=== PATIENT | female | born 1950 | race Caucasian/White ===

== ENCOUNTER 2020-01-13 13:09 | Outpatient (CLI) | payer MEDICARE, SELFPAY ==
--- NOTE | ~2020-01-13 | MMUS_ITS ---
EXAMINATION: MM diagnostic bernarda RT w sofia, US breast RT limited HISTORY: History of right breast cancer TECHNIQUE: Craniocaudal, mediolateral, and mediolateral oblique 3-D tomosynthesis images of the right breast were performed and synthetic 2-D images were generated. CAD analysis was submitted and interp reted. High resolution limited right breast ultrasound was performed. COMPARISON: 08/18/2019, 08/24/2018, 06/05/2019 BREAST PARENCHYMAL COMPOSITION: The breasts are almost entirely fatty. FINDINGS: MAMMOGRAPHIC FINDINGS: There are stable lumpectomy changes in the upper outer quadrant of the breast. There is subtle 5 mm a symmetry in the posterior third of the slightly inner breast 8 cm from the nipple. No suspicious calc ification is identified. ULTRASOUND: There is a subtle 5 mm x 3 mm oval, circumscribed, parallel, hypoechoic mass with no posterior featur es or internal vascularity at the 3:00 location 3 cm from the nipple. IMPRESSION: 1. Indeterminate right breast mass. 2. Ultrasound-guided biopsy is recommended. BI-RADS category 4, suspicious findings. Reviewed, dictated and finalized at location A. IMPRESSION: 1. Indeterminate right breast mass. 2. Ultrasound-guided biopsy is recommended. BI-RADS category 4, suspicious findings.
== END 2020-01-13 13:10 | disposition home or self-care (01) ==
PROVIDERS: PCP Family Medicine Adolescent Medicine; Visit Provider Internal Medicine Hematology & Oncology
DX: C50.411 Malignant neoplasm of upper-outer quadrant of right female breast (principal); R92.8 Other abnormal and inconclusive findings on diagnostic imaging of breast
CPT/HCPCS: 76642; 77061; 77065; G0279

== ENCOUNTER 2020-01-19 10:02 | Outpatient (CLI) | payer MEDICARE, SELFPAY ==
--- NOTE | ~2020-01-19 | US_ITS ---
US breast RT limited DATE: 01/19/2020 11:39 INDICATION: Subtle 5 mm x 3 mm oval circumscribed parallel mass was reported at 3:00 3 cm from the ni pple on 01/13/2020 ultrasound examination TECHNIQUE: Repeat ultrasound imaging and color flow imaging was performed targeted 3:00 3 cm from the nipple COMPARISON: 01/13/2020 right breast Limited ultrasound examination FINDINGS: There is a parallel circumscribed heterogeneous mixed hypoechoic and hyperechoic lesion at 3:00 3 cm from the nipple, without suspicious shadowing or internal vascularity. This measures approx imately 7.4 x 3.4 x 7.2 mm dimension. The patient has been on low-dose aspirin therapy is slight is yesterday. The sonographic features are most suggestive of a benign process, particularly the hyperechoic compon ent suggesting fatty tissue, as well as the circumscribed margins, parallel orientation, the lack of posterior shadowing. This most likely benign. I would recommend a 6 month follow-up ultrasound examin ation. IMPRESSION: BI-RADS Category 3: Probably benign RECOMMENDATION: 6 month follow-up targeted ultrasound at 3:00 Reviewed, dictated and finalized at Location A. Reviewed, dictated and finalized at location A.
== END 2020-01-19 10:03 | disposition home or self-care (01) ==
PROVIDERS: PCP Family Medicine Adolescent Medicine; Visit Provider Internal Medicine Hematology & Oncology
DX: C50.411 Malignant neoplasm of upper-outer quadrant of right female breast (principal); Z17.0 Estrogen receptor positive status [ER+]; R92.8 Other abnormal and inconclusive findings on diagnostic imaging of breast
CPT/HCPCS: 76642

== ENCOUNTER → 2020-08-16 09:18 | Outpatient (CLI) | payer MEDICARE, SELFPAY ==
--- NOTE | ~2020-08-16 | MMUS_ITS ---
EXAMINATION: MM diagnostic bernarda BI w sofia, US breast RT limited HISTORY: Six-month follow-up of subtle 5 x 3 mm circumscribed parallel mass at 3:00 3 cm from the nip ple recommended from 01/19/2020 right Limited breast ultrasound examination TECHNIQUE: ML, MLO and craniocaudal 3-D tomosynthesis images of both breasts were performed and synth etic 2-D images were generated. CAD analysis was submitted and interpreted. High resolution targeted right 3:00 Limited breast ultrasound examination was performed. COMPARISON: 01/19/2020 limited right breast ultrasound 01/13/2020 diagnostic right mammogram and limited right breast ultrasound examination 08/18/2019 bilateral diagnostic digital mammogram BREAST PARENCHYMAL COMPOSITION: The breasts are almost entirely fatty. FINDINGS: MAMMOGRAPHIC FINDINGS: Surgical clips are noted on the right. Occasional bilateral benign calcifications are noted including some new calcifications of fat necrosis on the left upper inner quadrant. No suspicious mass or interval architectural distortion or malignant calcification or skin thickening or new retraction of either breast is evident. ULTRASOUND: No suspicious mass or shadowing, cyst or other significant finding is noted at the right breast 3:00 position 3 cm from nipple. IMPRESSION: 1. No mammographic evidence of malignancy is detected 2. Routine annual mammographic screening follow-up is recommended. BI-RADS Category 2: Benign finding(s). Reviewed, dictated and finalized at location A. ICATION INTEGRATION ARCHITECT IMPRESSION: 1. No mammographic evidence of malignancy is detected 2. Routine annual mammographic screening follow-up is recommended. BI-RADS Category 2: Benign finding(s).
== END ==
PROVIDERS: PCP Family Medicine Adolescent Medicine; Visit Provider Nurse Practitioner Adult Health
DX: C50.411 Malignant neoplasm of upper-outer quadrant of right female breast (principal); Z17.0 Estrogen receptor positive status [ER+]
CPT/HCPCS: 76642; 77062; 77066; G0279

== ENCOUNTER 2020-10-02 15:45 | Outpatient (CLI) | payer MEDICARE, SELFPAY | END 2020-10-02 15:46 | disposition home or self-care (01) | LOC: ANHCOVIDVC 15:45 | PROVIDERS: PCP Family Medicine Adolescent Medicine | DX: Z23 Encounter for immunization (principal) | CPT/HCPCS: 0001A; 91300 ==

== ENCOUNTER 2020-10-23 15:44 | Outpatient (CLI) | payer MEDICARE, SELFPAY | END 2020-10-23 15:45 | disposition home or self-care (01) | LOC: ANHCOVIDVC 15:44 | PROVIDERS: PCP Family Medicine Adolescent Medicine | DX: Z23 Encounter for immunization (principal) | CPT/HCPCS: 0002A; 91300 ==

== ENCOUNTER → 2021-03-09 08:23 | Outpatient (CLI) | payer MEDICARE, SELFPAY ==
--- NOTE | ~2021-03-09 | XR_ITS ---
EXAMINATION:XR cervical spine 4-5V DATE: 03/09/2021 09:00 INDICATION: Neck pain TECHNIQUE: AP, lateral, lateral swimmers and odontoid views of the cervical spine are provided. COMPARISON: None FINDINGS: There are 2 mm of retrolisthesis of C4 on C5 and C5 on C6. The odontoid is intact. No fract ure is identified. The vertebral body heights are maintained. There is severe loss of intervertebral disc space height at C5-6 and C6-7 and moderate loss of disc space height at C4-5. Small degenerative osteophytes project from the anterior endplates of multiple vertebral bodies. There is severe multil evel facet and uncovertebral joint osteoarthritis. Prevertebral soft tissues are normal. IMPRESSION: 1. Severe cervical spondylosis without acute findings. Reviewed, dictated and finalized at location B.
--- NOTE | ~2021-03-09 | XR_ITS ---
EXAMINATION: XR lumbar spine 2-3V DATE: 03/09/2021 09:00 INDICATION: Low back pain TECHNIQUE: Anteroposterior and lateral views of the lumbar spine, and cone-down lateral view of the l umbosacral junction were obtained. COMPARISON: None. FINDINGS: There are 4 mm of retrolisthesis of L2 on L3, 5 mm of anterolisthesis of L3 on L4, and 5 mm of retrolisthesis of L5 on S1. There is severe loss of intervertebral disc space height at L4-5 and moderate loss of disc space height throughout the remainder of the lumbar spine. No fracture is ident ified. The vertebral body heights are maintained. Degenerative osteophytes project from the anterior endplates of multiple vertebral bodies. There is severe facet osteoarthritis of the lower lumbar spin e. IMPRESSION: 1. Severe lumbar spondylosis without acute findings Reviewed, dictated and finalized at location B.
== END ==
PROVIDERS: PCP Family Medicine Adolescent Medicine; Visit Provider Physician Assistant
DX: M47.896 Other spondylosis, lumbar region (principal); M47.892 Other spondylosis, cervical region
CPT/HCPCS: 72050; 72100

== ENCOUNTER 2021-03-12 10:52 | Outpatient (RCR) | payer MEDICARE, SELFPAY ==
--- NOTE | 2021-03-12 12:50 | PC.NURSE ---
This RN called blood back to ask if blood is ready on this patient. Blood bank stated they needed another lavender tube drawn for verification. This RN sent tube with patient label as directed by Lu in lab.
[2021-03-12 13:30] VITALS: BP 140/54; PULSE 85; RESP 15; TEMP 36.4; O2SAT 100
--- NOTE | 2021-03-12 13:39 | PC.NURSE ---
This RN ordered food for patient as requested.
[2021-03-12 13:45] VITALS: BP 130/54; PULSE 80; RESP 18; TEMP 36.1; O2SAT 100
[2021-03-12 14:45] VITALS: BP 127/58; PULSE 72; RESP 16; TEMP 36; O2SAT 100
[2021-03-12 15:45] VITALS: BP 143/68; PULSE 77; RESP 15; TEMP 36.1; O2SAT 100
[2021-03-12 16:40] VITALS: BP 146/65; PULSE 78; RESP 16; TEMP 36.1; O2SAT 100
--- NOTE | 2021-03-12 16:54 | PC.NURSE ---
1640 1 U PRBC done being infused, D/C paperwork reviewed with patient and pts daughter, both verbalized understanding. IV was d/c'd, cath intact, pressure applied. Pt was transported via wheelchair to [facility] where her daughter drove her home in a private vehicle.
== END 2021-06-10 23:59 | disposition home or self-care (01) ==
LOC: ANHCPCTRAN 10:52
PROVIDERS: PCP Family Medicine Adolescent Medicine; Visit Provider Physician Assistant
DX: D64.9 Anemia, unspecified (principal)
CPT/HCPCS: 36415; 36430; 86850; 86900; 86901; 86920; J7050; P9016

== ENCOUNTER 2021-05-09 10:35 | Outpatient (CLI) | payer MEDICARE, SELFPAY ==
[2021-05-09 11:19] LABS: Basophils Percent Auto 0.6 % (0.2-1.2); Eosinophils Absolute Auto 0.1 K/mm3 (0-0.3); Eosinophils Percent Auto 1.9 % (0-4.4); Hematocrit 40.6 % (37.0-47.0); Hemoglobin 12.4 g/dL (12.0-15.0); Immature Granulocyte Absolute 0.01 K/mm3 (0.00-0.031); Immature Granulocyte Percent A 0.2 % (0-0.5); Lymphocytes Absolute Auto 1.16 K/mm3 (0.9-3.2); Lymphocytes Percent Auto 22.2 % (18.3-44.2); Mean Corpuscular HGB Conc 30.5 g/dl (32-36); Mean Corpuscular Hemoglobin 29.2 pg (26-34); Mean Corpuscular Volume 95.8 fl (80-100); Mean Platelet Volume 9.7 fl (7.4-10.4); Monocytes Absolute Auto 0.4 K/mm3 (0.1-0.6); Monocytes Percent Auto 8.4 % (2.6-8.5); Neutrophils Absolute Auto 3.5 K/mm3 (1.3-6.7); Neutrophils Percent Auto 66.7 % (45.5-73.1); Platelet Count Result 223 k/mm3 (150-375); Red Blood Count 4.24 M/mm3 (4.2-5.4); Red Cell Distribution Width 15.8 % (11.5-14.5); White Blood Count 5.2 K/mm3 (4.5-10.0)
[2021-05-09 14:44] LABS: Alanine Aminotransferase 12 U/L (4-35); Albumin Level 3.4 g/dL (3.5-5.1); Alkaline Phosphatase 55 U/L (38-126); Anion Gap 4 mmol/L (8-16); Aspartate Amino Transferase 34 U/L (14-36); Bilirubin,Total 0.3 mg/dL (0.2-1.3); Blood Urea Nitrogen 17 mg/dL (7-17); Carbon Dioxide 30 mmol/L (22-30); Chloride 107 mmol/L (98-107); Estimated Glomerular Filt Rate 54; Glucose 125 mg/dL (65-110); Sodium 141 mmol/L (137-145)
[2021-05-09 14:53] LABS: Iron 65 ug/dL (37-170)
[2021-05-09 15:03] LABS: Percent Iron Saturation 19 % (20-50)
== END 2021-05-09 10:36 | disposition home or self-care (01) ==
LOC: ANHLAB 10:38
PROVIDERS: PCP Family Medicine Adolescent Medicine; Visit Provider Internal Medicine Hematology & Oncology
DX: C50.411 Malignant neoplasm of upper-outer quadrant of right female breast (principal); Z17.0 Estrogen receptor positive status [ER+]
CPT/HCPCS: 36415; 80053; 82607; 82728; 83540; 83550; 85025

== ENCOUNTER 2021-05-11 00:43 | Day surgery (SDC) | payer MEDICARE, SELFPAY ==
[2021-04-25 12:58] VITALS: BMI 37.9
[2021-05-11 09:08] VITALS: BP 148/72; PULSE 84; RESP 20; TEMP 36.4; O2SAT 99; BMI 37.2
[2021-05-11] MEDS: LACTATED RINGERS 1,000 ML 150 ML IV CONT (09:23)
--- NOTE | 2021-05-11 09:42 | P.PNAN_ITS ---
Anes - Initial Pre Proc Eval Procedure: Operation Date: 05/11/21 10:15 Proposed Procedures p Esophagogastroduodenoscopy & Colonoscopy - Killian Mackey MD Date/Time: 05/11/21 09:42 Surgeon: Killian Mackey MD Pre Op Diagnosis: HIRO Patient Data Age: 71 Gender: F Height: 1.78 m Weight: 117.7 kg Last Vital Signs Temp 36.4 C 05/11/21 09:08 Pulse 84 05/11/21 09:08 Resp 20 05/11/21 09:08 BP 148/72 H 05/11/21 09:08 Pulse Ox 99 05/11/21 09:08 Allergies Allergy/AdvReac Type Severity Reaction Status Date / Time No Known Allergies Allergy Verified 05/11/21 09:05 Home Medications Medication Instructions Recorded Confirmed Type anastrozole 1 mg tablet 1 mg PO DAILY 04/13/21 04/25/21 History budesonide-formoterol HFA 80 2 puff INHALATION Q12H 04/13/21 04/25/21 History mcg-4.5 mcg/actuation aerosol inhaler bupropion HCl 300 mg 24 hr tablet, 300 mg PO QAM 04/13/21 04/25/21 History extended release ferrous sulfate 325 mg (65 mg 325 mg PO BID 04/13/21 04/25/21 History iron) tablet ipratropium bromide 21 mcg (0.03 2 spray INTRANASAL BID 04/13/21 04/25/21 History %) nasal spray lorazepam 0.5 mg tablet 0.5 mg PO DAILY PRN 04/13/21 04/25/21 History meclizine 25 mg tablet 25 mg PO TID 04/13/21 04/25/21 History multivit with 1 tablet PO DAILY 04/13/21 04/25/21 History uusxnees-fhwz-LR-lutein 8 mg iron-400 mcg-300 mcg tablet pantoprazole 40 mg tablet,delayed 40 mg PO QAM 04/13/21 04/25/21 History release Patient hx anesthesia problems: none Family hx anesthesia problems: none Results Review: All pre-operative results and documents have been reviewed as part of the pre-operative evaluation. [facility] Past Medical History Medical History Breast cancer CKD (chronic kidney disease) stage 3, GFR 30-59 ml/min HTN (hypertension) Morbid obesity Social History Social History Smoking status: Former smoker Alcohol intake: never Substance use: never Substance use type: does not use Living arrangements: with family Spiritual care concerns: No Anes - Eval Final PreProcedure Day of Procedure 05/11/21 09:42 Patient weight: obese Heart: regular rate and rhythm Lungs: clear to auscultation Airway: Mallampati scale class III Neurological: alert and oriented Last oral intake: >/= 8 hours ASA classification: III Emergent: no Anesthetic plan: proceed Anesthesia type and monitoring: general GIVS and standard monitoring Results Review: All pre-operative results and documents have been reviewed as part of the pre-operative evaluation. Informed Consent: The patient's anesthetic plan and its attendant risks and benefits were discussed with the patient/family/POA. Questions were solicited and answers provided to the satisfaction of the patient/family/POA.
--- NOTE | 2021-05-11 10:00 | WPDGICN ---
Assessment and Plan Assessment and plan (1) Anemia: Code(s): D64.9 - Anemia, unspecified Status: Acute Assessment and Plan: Patient with anemia presents for both colonoscopy an EGD. Patient has had a decline in hemoglobin when checked in February from prior exams. Plan is to evaluate both colonoscopy an EGD for the possibility of GI blood loss. Further recommendations will be given after endoscopy. It hemoglobin has improved after transfusion has remained stable. patient currently on empiric pantoprazole. (2) History of melena: Code(s): Z87.19 - Personal history of other diseases of the digestive system Status: Acute Assessment and Plan: Patient gives a history of several dark stools. This potentially could represent melena and GI bleeding. This has not persisted there has been only 2 occasions of this. (3) Breast cancer: Code(s): C50.919 - Malignant neoplasm of unspecified site of unspecified female breast Status: Acute (4) Morbid obesity: Code(s): E66.01 - Morbid (severe) obesity due to excess calories Status: Acute GI Consult Note Consult date/time: 05/11/21 10:00 HPI: Michelle Araiza is a 71 year old female Presents for evaluation of anemia. Patient has a history of breast carcinoma for which she follows Dr. Melissa de luna. She also has a peripheral neuropathy. She began to feel somewhat dizzy and went to her primary care service in January. Hemoglobin at that time revealed her to be modestly anemic and a significant change from recent blood count. Patient reports that she had to independent black stools prior to that at that has not recurred. She denies any abdominal pain. She subsequently was placed on meclizine for dizziness. Pantoprazole for possible ulcer disease and was transfused blood. Patient is now referred for for evaluation of anemia and possible GI blood loss. Possible melena by history. Patient's family history is significant a grandfather had colon cancer her mother had leukemia. Patient is being followed by Dr. Melissa de luna for breast cancer she also has obesity and neuropathy. She denies any recent evidence for blood loss. Review of Systems Review of Systems: All systems reviewed & are unremarkable except as noted in HPI and below PMFSH Past Medical History Medical History Breast cancer CKD (chronic kidney disease) stage 3, GFR 30-59 ml/min HTN (hypertension) Morbid obesity Social History Social History Smoking status: Former smoker Alcohol intake: never Substance use: never Substance use type: does not use Living arrangements: with family Spiritual care concerns: No Meds Home Medications and Allergies Home Medications Medication Instructions Recorded Confirmed Type anastrozole 1 mg tablet 1 mg PO DAILY 04/13/21 04/25/21 History budesonide-formoterol HFA 80 2 puff INHALATION Q12H 04/13/21 04/25/21 History mcg-4.5 mcg/actuation aerosol inhaler bupropion HCl 300 mg 24 hr tablet, 300 mg PO QAM 04/13/21 04/25/21 History extended release ferrous sulfate 325 mg (65 mg 325 mg PO BID 04/13/21 04/25/21 History iron) tablet ipratropium bromide 21 mcg (0.03 2 spray INTRANASAL BID 04/13/21 04/25/21 History %) nasal spray lorazepam 0.5 mg tablet 0.5 mg PO DAILY PRN 04/13/21 04/25/21 History meclizine 25 mg tablet 25 mg PO TID 04/13/21 04/25/21 History multivit with 1 tablet PO DAILY 04/13/21 04/25/21 History gbljyoxr-pgup-FE-lutein 8 mg iron-400 mcg-300 mcg tablet pantoprazole 40 mg tablet,delayed 40 mg PO QAM 04/13/21 04/25/21 History release Allergies Allergy/AdvReac Type Severity Reaction Status Date / Time No Known Allergies Allergy Verified 05/11/21 09:05 Vital Signs Vital Signs - 24 hr 05/11/21 09:08 Temperature 97.6 F Pulse Rate 84 Respiratory Rate 20 Blood Pressure 14
[2021-05-11 10:55] VITALS: BP 131/64; PULSE 73; RESP 15; O2SAT 98
[2021-05-11 11:05] VITALS: BP 146/105; PULSE 68; RESP 18; O2SAT 100
[2021-05-11 11:15] VITALS: BP 147/84; PULSE 66; RESP 16; O2SAT 100
== END 2021-05-11 11:37 | disposition home or self-care (01) ==
PROVIDERS: PCP Family Medicine Adolescent Medicine; Visit Provider Internal Medicine Gastroenterology
PROC: 0DJ08ZZ Inspection of Upper Intestinal Tract, Via Natural or Artificial Opening Endoscopic (ICD-10-PCS; CPT 43235; principal; 2021-05-11 10:15)
DX: D64.9 Anemia, unspecified (principal); K92.1 Melena; D12.5 Benign neoplasm of sigmoid colon; K64.8 Other hemorrhoids; K57.30 Diverticulosis of large intestine without perforation or abscess without bleeding; K31.7 Polyp of stomach and duodenum; Z87.19 Personal history of other diseases of the digestive system; I12.9 Hypertensive chronic kidney disease with stage 1 through stage 4 chronic kidney disease, or unspecified chronic kidney disease; N18.30 Chronic kidney disease, stage 3 unspecified; G62.9 Polyneuropathy, unspecified; Z85.3 Personal history of malignant neoplasm of breast; E66.01 Morbid (severe) obesity due to excess calories; Z68.37 Body mass index [BMI] 37.0-37.9, adult; Z87.891 Personal history of nicotine dependence; Z79.811 Long term (current) use of aromatase inhibitors; Z79.51 Long term (current) use of inhaled steroids
CPT/HCPCS: 45385; 43239; 88305; J2001; J2704; J7120

== ENCOUNTER 2021-06-18 08:13 | Outpatient (CLI) | payer MEDICARE, SELFPAY ==
--- NOTE | ~2021-06-18 | XR_ITS ---
EXAMINATION: XR chest 2V DATE: 06/18/2021 08:40 INDICATION: Neoplasm of unspecified behavior of digestive system. TECHNIQUE: Frontal and lateral views of the chest were obtained. COMPARISON: None. FINDINGS: The chest demonstrates clear lungs without pneumonia, pleural effusion, or pneumothorax. Th e heart size is normal. IMPRESSION: 1. No acute cardiopulmonary disease. Reviewed, dictated and finalized at location B. TY COUNSELOR
--- NOTE | 2021-06-18 08:30 | ECG_ITS ---
Measurements Intervals [place] Rate: 67 P: 66 NJ: 174 QRS: -6 QRSD: 97 T: 34 QT: 390 QTc: 412 Interpretive Statements SINUS RHYTHM VOLTAGE CRITERIA FOR LVH BORDERLINE R WAVE PROGRESSION, ANTERIOR LEADS MINIMAL Q WAVES- HIGH LATERAL LEADS BASELINE ARTIFACT- II, III, AVF BORDERLINE ECG Electronically Signed On 06-18-2021 8:32:05 E [employer]ER[employer] PROJECT MANAGER by Samuel Beaver D.O.
[2021-06-18 09:03] LABS: Basophils Absolute Auto 0.1 K/mm3 (0.0-0.1); Basophils Percent Auto 1.2 % (0.2-1.2); Eosinophils Absolute Auto 0.1 K/mm3 (0-0.3); Eosinophils Percent Auto 1.9 % (0-4.4); Hemoglobin 13.9 g/dL (12.0-15.0); Immature Granulocyte Absolute 0.02 K/mm3 (0.00-0.031); Immature Granulocyte Percent A 0.5 % (0-0.5); Lymphocytes Absolute Auto 1.06 K/mm3 (0.9-3.2); Lymphocytes Percent Auto 24.8 % (18.3-44.2); Mean Corpuscular HGB Conc 32.3 g/dl (32-36); Mean Corpuscular Hemoglobin 31.6 pg (26-34); Mean Corpuscular Volume 97.7 fl (80-100); Mean Platelet Volume 9.9 fl (7.4-10.4); Monocytes Absolute Auto 0.4 K/mm3 (0.1-0.6); Monocytes Percent Auto 8.2 % (2.6-8.5); Neutrophils Absolute Auto 2.7 K/mm3 (1.3-6.7); Neutrophils Percent Auto 63.4 % (45.5-73.1); Platelet Count Result 197 k/mm3 (150-375); Red Cell Distribution Width 14.3 % (11.5-14.5); White Blood Count 4.3 K/mm3 (4.5-10.0)
[2021-06-18 09:21] LABS: Anion Gap 1 mmol/L (8-16); Blood Urea Nitrogen 18 mg/dL (7-17); Carbon Dioxide 33 mmol/L (22-30); Chloride 107 mmol/L (98-107); Estimated Glomerular Filt Rate 54; Glucose 102 mg/dL (65-110); Potassium 3.8 mmol/L (3.4-5.0); Sodium 141 mmol/L (137-145)
== END 2021-06-18 08:14 | disposition home or self-care (01) ==
LOC: ANHSURGERY 08:15
PROVIDERS: PCP Family Medicine Adolescent Medicine; Visit Provider Surgery
DX: D49.0 Neoplasm of unspecified behavior of digestive system (principal)
CPT/HCPCS: 36415; 71046; 80048; 85025; 86850; 86900; 86901; 93005

== ENCOUNTER 2021-06-29 16:37 | Inpatient (IN) | payer MEDICARE, SELFPAY ==
[2021-06-14 10:29] VITALS: BMI 37.3
--- NOTE | 2021-06-14 10:47 | PC.NURSE ---
Report to the Outpatient Waiting Room, entrance under the green pavilion located off [facility], at time _1100 _on date _06/28/21. OR Time: _1 PM__. - You and your visitor will be asked a series of questions to screen for COVID 19 for your protection. - A mask is required within the hospital. - Only one visitor is allowed at this time. Patient visitors will be guided where to wait when not with patient. Preoperative COVID Testing Requirements: No COVID Test needed if: (proof is required; if not received patient will have Rapid Test prior to entry) - Patient has received COVID Vaccine at least 14 days prior to procedure date or - Patient has positive COVID test result within last 90 days of surgery date. COVID Test needed if above criteria is not met If not COVID vaccinated a COVID test must be conducted within 72 hours of surgery and patient is asked to isolate self from time of testing until procedure. You will go to the [email or web address] Testing Site for your COVID testing. The [email or web address] Testing site is located at the corner of [address] [facility]. You will only be called if COVID results are positive and your surgeon may reschedule your elective surgery date. Patients may have clear liquids (water, carbonated beverages, clear teas, apple juice) until 3 hours prior to surgery (1000 AM) with a maximum of 20 ounces. - No food from midnight until time of surgery - Infants may have breast milk until 4 hours before surgery, formula 6 hours prior to surgery. - Children will be allowed to drink immediately following surgery. If applicable, please bring a bottle or sippy cup to assist with drinking. Juice, water, soda, and popsicles are readily available. For infants on formula, please bring formula the day of surgery. Pacifiers are allowed. Take the following medications with a SIP of water the morning of surgery: _BUPROPION, INHALER, & LORAZEPAM IF NEEDED____ Medications to discontinue per physician _ALL VITAMINS AND SUPPLEMENTS Date to take last dose__06/24/21____ Please no make-up, nail bengali, hairspray, perfume, deodorant, or body powder the day of surgery. No jewelry (including any body piercings) or valuables the day of surgery, leave them at home. Please take a shower or bath the night before, or the morning of, surgery with an antibacterial soap. Wear comfortable, loose fitting clothing. Children are encouraged to wear pajamas. - Jewelry must be removed prior to entering the operating room. Rings and piercings that are not removed may be cut off. - The hospital will not accept responsibility for valuables. - Please leave all valuables, including medications, at home the day of surgery. If you are going home after surgery, a licensed [employer] company driver must drive you home. - NO public transportation without another adult. - We recommend that an adult stay with you for 24 hours following discharge. - We also recommend that you do not drive, make important decision, drink alcoholic beverages, or take any drugs that were not prescribed by your health care provider for at least 24 hours after your discharge time. For Pediatric surgeries, we recommend two adults accompany the child home (only one inside the building at this time). Follow any additional instructions given to you from your surgeon. DIET, BOWEL PREP, HIBICLENS SHOWER DAY BEFORE AND AM OF SURGERY Telephone instructions given to ____PT and asked if any additional questions and then verbalized understanding. Patient advised to call surgeon office or pre surgery nurse liaison [phone] if any additional questions.
[2021-06-28] VITALS (14 sets, daily range): BP systolic 125–158; BP diastolic 64–95; PULSE 61–88; RESP 12–20; TEMP 35.9–36.5; O2SAT 96–100
--- NOTE | 2021-06-28 08:23 | PM.IMHP ---
H&P: HPI History of Present Illness Date/Time: 06/28/21 08:23 Chief Complaint: Submucosal gastric mass Narrative: patient is a 71-year-old woman with a history breast cancer, obesity, and chronic kidney disease stage 3. She was noted to have anemia and easy fatigability. On May 11 she underwent a colonoscopy an EGD to evaluate this. Colonoscopy was negative other than a benign sigmoid colon polyp and diverticulosis. 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 This was ulcerated and appeared to be the source of chronic blood loss. Biopsies were done but showed only some inflammation suggestive of the overlying mucosal changes. She was seen in the office and is now taken to surgery for laparoscopic resection of the gastric submucosal mass. Concern exists that this could be a gastrointestinal stromal tumor versus other soft tissue benign or malignant neoplasm. Review of Systems Review of Systems: All systems reviewed & are unremarkable except as noted in HPI and below Constitutional: Constitutional: Denies headache(s) ENT: Denies headache(s) Cardiovascular: Cardiovascular: Denies chest pain and Denies dyspnea Respiratory: Respiratory: Denies cough and Denies dyspnea Gastrointestinal: Gastrointestinal: Reports melena ( Melena), Denies bloating, Reports change in stool character, Denies constipation, Reports heartburn and Denies nausea Genitourinary: Genitourinary: Reports urinary incontinence Musculoskeletal: Musculoskeletal: Reports back pain, Reports arthralgias and Reports neck pain Neurologic: Denies confusion, Reports frequent falls and Denies headache(s) Psychiatric: Psychiatric: Denies confusion Allergic/Immunologic: Allergic/Immunologic: Reports seasonal rhinorrhea PMF Past Medical History Medical History Breast cancer CKD (chronic kidney disease) stage 3, GFR 30-59 ml/min HTN (hypertension) Morbid obesity Family History Family History Father Heart disease Mother Diabetes mellitus Social History Social History Smoking status: Never smoker Second hand tobacco smoke exposure: No Alcohol intake: never Substance use: never Substance use type: does not use Living arrangements: alone Spiritual care concerns: No Meds Home Medications and Allergies Home Medications Medication Instructions Recorded Confirmed Type anastrozole 1 mg tablet 1 mg PO DAILY 04/13/21 06/14/21 History budesonide-formoterol HFA 80 2 puff INHALATION Q12H 04/13/21 06/14/21 History mcg-4.5 mcg/actuation aerosol inhaler bupropion HCl 300 mg 24 hr tablet, 300 mg PO QAM 04/13/21 06/14/21 History extended release ferrous sulfate 325 mg (65 mg 325 mg PO DAILY 04/13/21 06/14/21 History iron) tablet ipratropium bromide 21 mcg (0.03 2 spray INTRANASAL BID PRN 04/13/21 06/14/21 History %) nasal spray lorazepam 0.5 mg tablet 0.5 mg PO DAILY PRN 04/13/21 06/14/21 History multivit with 1 tablet PO DAILY 04/13/21 06/14/21 History hcpbozma-dhkf-EU-lutein 8 mg iron-400 mcg-300 mcg tablet pantoprazole 40 mg tablet,delayed 40 mg PO QAM 04/13/21 06/14/21 History release Mra 128 1 drp DAILY 06/14/21 06/14/21 History calcium carbonate-vitamin D3 1 tablet PO DAILY 06/14/21 06/14/21 History [Calcium 600 with Vitamin D3] vitamin B complex 1 cap DAILY 06/14/21 06/14/21 History Allergies Allergy/AdvReac Type Severity Reaction Status Date / Time No Known Allergies Allergy Verified 06/14/21 10:19 Exam Const: General: cooperative, comfortable, no acute distress, alert and awake; No confusion Orientation/consciousness: No confusion HENMT: Head: normocephalic, atraumatic, no contusions and no scalp lesions Ears: external ears
[2021-06-28] MEDS: ACETAMINOPHEN 500 MG TABLET 1000 MG PO (09:39)
[2021-06-28] MEDS: LACTATED RINGERS 1,000 ML 30 ML IV CONT ×2 (09:45→12:57)
--- NOTE | 2021-06-28 09:51 | WPDANESEPPF ---
Anes - Initial Pre Proc Eval Procedure: Operation Date: 06/28/21 10:30 Proposed Procedures p Laparoscopic Resection of Gastric Mass - Lionel Pichardo MD Date/Time: 06/28/21 09:51 Surgeon: Lionel Pichardo MD Pre Op Diagnosis: submucosal gastric mass Patient Data Age: 71 Gender: F Height: 1.78 m Weight: 118.18 kg Allergies Allergy/AdvReac Type Severity Reaction Status Date / Time No Known Allergies Allergy Verified 06/28/21 09:30 Home Medications Medication Instructions Recorded Confirmed Type anastrozole 1 mg tablet 1 mg PO DAILY 04/13/21 06/28/21 History budesonide-formoterol HFA 80 2 puff INHALATION Q12H 04/13/21 06/28/21 History mcg-4.5 mcg/actuation aerosol inhaler bupropion HCl 300 mg 24 hr tablet, 300 mg PO QAM 04/13/21 06/28/21 History extended release ferrous sulfate 325 mg (65 mg 325 mg PO DAILY 04/13/21 06/28/21 History iron) tablet ipratropium bromide 21 mcg (0.03 2 spray INTRANASAL BID PRN 04/13/21 06/14/21 History %) nasal spray lorazepam 0.5 mg tablet 0.5 mg PO DAILY PRN 04/13/21 06/14/21 History multivit with 1 tablet PO DAILY 04/13/21 06/28/21 History pvzbvojy-klid-EI-lutein 8 mg iron-400 mcg-300 mcg tablet pantoprazole 40 mg tablet,delayed 40 mg PO QAM 04/13/21 06/28/21 History release Mra 128 1 drp DAILY 06/14/21 06/28/21 History calcium carbonate-vitamin D3 1 tablet PO DAILY 06/14/21 06/28/21 History [Calcium 600 with Vitamin D3] vitamin B complex 1 cap DAILY 06/14/21 06/28/21 History Patient hx anesthesia problems: none Family hx anesthesia problems: none Results Review: All pre-operative results and documents have been reviewed as part of the pre-operative evaluation. [facility] Past Medical History Medical History Breast cancer CKD (chronic kidney disease) stage 3, GFR 30-59 ml/min HTN (hypertension) Morbid obesity Family History Family History Father Heart disease Mother Diabetes mellitus Social History Social History Smoking status: Never smoker Second hand tobacco smoke exposure: No Alcohol intake: never Substance use: never Substance use type: does not use Living arrangements: alone Spiritual care concerns: No Anes - Eval Final PreProcedure Day of Procedure 06/28/21 09:51 Patient weight: obese Heart: regular rate and rhythm Lungs: clear to auscultation Airway: Mallampati scale class II Neurological: alert and oriented Last oral intake: >/= 8 hours ASA classification: III Emergent: no Anesthetic plan: proceed Anesthesia type and monitoring: general ETT and standard monitoring Results Review: All pre-operative results and documents have been reviewed as part of the pre-operative evaluation. Informed Consent: The patient's anesthetic plan and its attendant risks and benefits were discussed with the patient/family/POA. Questions were solicited and answers provided to the satisfaction of the patient/family/POA.
[2021-06-28] MEDS: ALVIMOPAN 12 MG CAPSULE PO (10:04)
--- NOTE | 2021-06-28 10:06 | WPDHPUPDATE1 ---
History and Physical Update Update Date/Time: 06/28/21 10:06 History and Physical has been reviewed, including an updated exam of the patient. There are NO changes in the patient's condition. Risks, benefits, and alternatives have been discussed and questions answered. Patient agrees to proceed with procedure.
[2021-06-28] MEDS: ceFAZolin 2 GM/D5W 50 ML 2 GM/50 ML BAG IVPB (10:17)
[2021-06-28] MEDS: metroNIDAZOLE 500 MG/ISO 100ML 500 MG/100 ML BAG 100 MG IVPB (10:26)
[2021-06-28] MEDS: BUPIVACAINE HCL 0.5% PF 30 ML VIAL INFILTRATE (10:39)
--- NOTE | 2021-06-28 13:08 | W.PM.PROC2 ---
Procedure Note - Detailed Date of Procedure 06/28/21 Pre-op Diagnosis submucosal gastric mass Post-op Diagnosis same Procedure Performed Laparoscopic resection of 10 x 8 cm gastric submucosal mass Surgeon Lionel Pichardo MD Manager [employer] Shruthi MEJIA Anesthesia general and local (0.5% Marcaine) Indications Patient experienced symptomatic anemia due to GI blood loss. EGD done 05/11/2021 showed a gastric submucosal mass in the upper portion of the stomach. She is taken to surgery now for laparoscopic resection. Findings Laparoscopic findings were consistent with a large gastric submucosal mass in the upper portion of the stomach. It had dimpled the anterior aspect of the upper stomach in the area of the cardia. It appeared to be larger than was able to be noted at EGD. I estimated the size at 10 x 8 cm. It was able to be resected with clear margin laparoscopically. Description of Procedure Patient was taken to surgery and induced into general anesthesia. The abdomen was prepped and draped. Local anesthetic using 0.5% Marcaine was used prior to placement of each of the trocars. The initial trocar was cephalad from the umbilicus but in the midline. The varies needle was used here initially to gain good insufflation. Saline drop test was used to ensure intraperitoneal location before we insufflated with CO2. With the abdomen insufflated adequately, and applied Medical optical 10 11 port was then placed into the abdomen. From there the camera was placed and the remaining ports were placed under direct visualization. A 10 11 port was placed in the left lateral subcostal position. Two ports were placed on either side of the midline just cephalad to the initial port. Finally a 12 mm port was placed in the right subcostal position. A liver retractor was used to retract the lateral segment of the left lobe of the liver. We used the LigaSure for most of the sharp dissection. The stomach was inspected and we looked for the area of the mass. It was not immediately evident but as we continued our dissection we saw a dimpled area that was hypervascular that was clearly some erosion of the mass through the stomach wall. We proceeded by dividing the short gastric vessels from the greater curvature of the stomach. This was done with the LigaSure and we proceeded from about the mid stomach up to the cardia. This freed the stomach significantly so that we could proceed with the resection. There was a hiatal hernia noted. It was not particularly large. We dissected most of the posterior wall of the stomach as well as the cardia. At this point we were able to identify the mass. It was more on the anterolateral aspect of the cardia of the stomach. We started using a ABBY 45 stapler. The initial stapled divisions of the stomach went well but as we got to the midportion of the mass, the stapler would not open wide enough to make progress. We then switched to the echelon 60 mm stapler. This worked well. I was able to follow around the margin of the mass in the cardia and fundus of the stomach staying away from the esophagogastric junction. Serial firings of the 60 mm stapler were carried out and the portion of stomach containing the mass was eventually completely freed. Some of the cardia the stomach was left behind but appeared to be in good condition. Some intraoperative photographs were taken. Since the mass was fairly large, we used a 15 mm port and the 15 mm Endo-Catch bag to retrieve the mass. The left upper port was converted to a 15 mm and then the Endo-Catch bag was passed into the abdomen. The mass was placed in the Endo-Catch bag. To remove the mass, we still had to enlarge the opening to extricated. It was eventually extricated in the pouch. We then proceeded with closing the incision. 0 Vicryl sutures were used for the posterior peritoneum and rectus fascia. This was running suture. Muscular bleeders were controlled with the LigaSure. The
--- NOTE | 2021-06-28 13:52 | SUR.PHASEI ---
PT AWAKENS EASILY. DENIES PAIN. STATES LOW ABDOMEN SORE, BUT IT DOESNT HURT PT STATES HER EYES ARE MOVING UP AND DOWN . DR CHAN IN PACU. PT DENIES DIZZINESS. ALERT AND ORIENTED, SPEECH CLEAR. FOLLOWS COMMANDS. CALLED TO BEDSIDE. DR CAHN SPEAKING WITH PT.
--- NOTE | 2021-06-28 13:58 | SUR.PHASEI ---
DR CHAN AT BEDSIDE AGAIN. SPEAKING TO PT, STATES SHE IS HAVING POST OPERATIVE NYSTAGMUS, AND IT SHOULD RESOLVE IN APPROX 24 HOURS.
--- NOTE | 2021-06-28 14:27 | SUR.PHASEI ---
pt is now boarding in out pt with jax rodriguez. room not available at this time.
--- NOTE | 2021-06-28 17:35 | ADMGEN ---
This patient, Micehlle Araiza, was admitted to Medical Room 346-01. Patient/family oriented to hospital policies and general routines including ID bracelet, bed and alarms, visiting hours, pain management, procedures, bathroom and other care routines, personal items, smoking policy, room service/diet, and visiting hours. Information on how to activate the Rapid Response Team has been discussed. Patient/Family are encouraged to report perceived risks to care and to ask questions if they do not understand what they are told or what they should do.
[2021-06-28] MEDS: FLUTICASONE/SALMETEROL 45-21 MCG INHALER 1 PUFF 2 PUFF INHALATION (20:48)
[2021-06-29] MEDS: HYDROcodone/acetaminophen (*CRX) 10-325 MG TABLET 1 TAB PO ×3 (04:00→16:01)
[2021-06-29 04:01] VITALS: BP 142/57; PULSE 76; RESP 16; TEMP 37.2; O2SAT 98
[2021-06-29 06:00] VITALS: BP 151/73; PULSE 74; RESP 18; TEMP 35.8; O2SAT 99
[2021-06-29 06:13] LABS: Hematocrit 39.3 % (37.0-47.0); Hemoglobin 12.9 g/dL (12.0-15.0); Mean Corpuscular HGB Conc 32.8 g/dl (32-36); Mean Corpuscular Volume 94.5 fl (80-100); Mean Platelet Volume 9.5 fl (7.4-10.4); Platelet Count Result 201 k/mm3 (150-375); Red Blood Count 4.16 M/mm3 (4.2-5.4); Red Cell Distribution Width 13.6 % (11.5-14.5); White Blood Count 8.8 K/mm3 (4.5-10.0)
[2021-06-29 06:24] LABS: Anion Gap 1 mmol/L (8-16); Blood Urea Nitrogen 17 mg/dL (7-17); Calcium 8.7 mg/dL (8.4-10.2); Carbon Dioxide 30 mmol/L (22-30); Chloride 103 mmol/L (98-107); Estimated CRCL calculation 62 ml/min; Estimated Glomerular Filt Rate 54; Glucose 122 mg/dL (65-110); Sodium 134 mmol/L (137-145)
[2021-06-29] MEDS: MORPHINE SULFATE (*CRX) 2 MG/ML INJ IV PUSH (06:42)
[2021-06-29] MEDS: PANTOPRAZOLE 40 MG TABLET PO (08:19)
[2021-06-29] MEDS: ANASTROZOLE (*CHEMO) 1 MG TABLET PO (08:20)
[2021-06-29] MEDS: FERROUS SULFATE 324 MG TABLET PO (08:20)
[2021-06-29] MEDS: buPROPion HCL XL (24 HR) 150 MG TABCR 300 MG PO (08:20)
[2021-06-29] MEDS: ENOXAPARIN 40 MG/0.4 ML SYRINGE SUB-Q (08:20)
[2021-06-29 10:00] VITALS: PULSE 68; RESP 18
[2021-06-29] MEDS: FLUTICASONE/SALMETEROL 45-21 MCG INHALER 1 PUFF 2 PUFF INHALATION (10:28)
[2021-06-29 14:00] VITALS: BP 148/66; PULSE 70; RESP 16; TEMP 36.3; O2SAT 94
--- NOTE | 2021-06-29 17:04 | PM.PNGS ---
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 Will advance diet. Up walking and up in chair. Recheck labs again tomorrow morning. Home when comfortable, ambulating independently, and tolerating oral intake well. (2) Anemia: Code(s): D64.9 - Anemia, unspecified Status: Chronic (3) History of breast cancer: Code(s): Z85.3 - Personal history of malignant neoplasm of breast Status: Chronic (4) BMI 38.0-38.9,adult: Code(s): Z68.38 - Body mass index [BMI] 38.0-38.9, adult Status: Chronic (5) UGI bleed: Code(s): K92.2 - Gastrointestinal hemorrhage, unspecified Status: Chronic Subjective Subjective Date/Time Seen: 06/29/21 17:04 Post Op day: 1 Patient reports: still having pain (Right and left lower ribcage predominantly on the lateral aspect), tolerating liquids well, no bowel movement and afebrile Exam Const: General: comfortable and no acute distress; No confusion Orientation/consciousness: patient oriented x3 and No confusion Resp: Effort & Inspection: normal respiratory effort Auscultation: clear to auscultation bilaterally GI: Inspection: incision (All incisions dry and healing well) and obesity GI Palp: Yes Soft to palpation, Yes Tenderness to palpation present (GI) (Appropriate incisional tenderness), No Guarding due to palpation present (GI) and No Rebound tenderness present Auscultation: normal bowel sounds Neuro: General: patient oriented x3, no focal motor deficits and No confusion Extrem: General: no calf tenderness and no edema Psych: Affect: normal affect Insight: Good insight present (Psych) Judgement: Good judgement present (Psych) Objective Data Vital Signs Vital Signs: Vital Signs - 24 hr 06/28/21 17:25 06/28/21 20:26 06/29/21 04:01 Temperature 36.1 C L 35.9 C L 37.2 C Pulse Rate 70 71 76 Respiratory Rate 16 16 16 Blood Pressure 153/95 H 150/64 H 142/57 H Pulse Oximetry 100 100 98 06/29/21 06:00 06/29/21 10:00 06/29/21 14:00 Temperature 35.8 C L 36.3 C L Pulse Rate 74 68 70 Respiratory Rate 18 18 16 Blood Pressure 151/73 H 148/66 H Pulse Oximetry 99 94 Intake/Output Intake/Output: Intake & Output 06/26/21 06/27/21 06/28/21 06/29/21 23:59 23:59 23:59 23:59 Intake Total 890 1020 Balance 890 1020 Meds/Results Medications: Active Medications Generic Name Dose Route Start Last Admin Trade Name Freq PRN Reason Stop Dose Admin Acetaminophen 500 mg 06/28/21 16:56 Acetaminophen 500 Mg Tablet PO Q6H PRN Mild Pain (1-3) or Fever Hydrocodone Bitart/Acetaminophen 1 tab 06/28/21 16:56 Hydrocodone/Acetaminophen (*Crx) 5-325 Mg Tablet PO Q4H PRN Pain Rated 4-6 Hydrocodone Bitart/Acetaminophen 1 tab 06/28/21 16:56 06/29/21 16:01 Hydrocodone/Acetaminophen (*Crx) 10-325 Mg Tablet PO 1 tab Q6H PRN Administration Pain Rated 7-10 Anastrozole 1 mg 06/29/21 09:00 06/29/21 08:20 Anastrozole (*Chemo) 1 Mg Tablet PO 1 mg DAILY OMERO Administration Bupropion HCl 300 mg 06/29/21 09:00 06/29/21 08:20 Bupropion Hcl Xl (24 Hr) 150 Mg Tabcr PO 300 mg QAM OMERO Administration Calcium Carbonate 500 mg 06/29/21 09:00 06/29/21 08:20 Calcium/Vitamin D 500 Mg Tablet PO 500 mg DAILY OMERO Administration Diphenhydramine HCl 25 mg 06/28/21 16:56 Diphenhydramine Hcl Inj 50 Mg/Ml Vial IV PUSH Q6H PRN Itching Enoxaparin Sodium 40 mg 06/29/21 09:00 06/29/21 08:20 Enoxaparin 40 Mg/0.4 Ml Syringe SUB-Q 40 mg DAILY OMERO Administration Ferrous Sulfate 324 mg 06/29/21 09:00 06/29/21 08:20 Ferrous Sulfate 324 Mg Tablet PO 324 mg DAILY OMERO Administration Ipratropium [place] 2 spray 06/28/21 16:56 Ipratropium Na
[2021-06-29 20:48] VITALS: BP 142/56; PULSE 79; RESP 18; TEMP 36; O2SAT 96
[2021-06-30 05:04] VITALS: BP 150/67; PULSE 83; RESP 18; TEMP 36; O2SAT 96
[2021-06-30 07:23] LABS: Hematocrit 35.6 % (37.0-47.0); Hemoglobin 11.9 g/dL (12.0-15.0); Mean Corpuscular HGB Conc 33.4 g/dl (32-36); Mean Corpuscular Hemoglobin 31.4 pg (26-34); Mean Corpuscular Volume 93.9 fl (80-100); Mean Platelet Volume 9.7 fl (7.4-10.4); Platelet Count Result 174 k/mm3 (150-375); Red Blood Count 3.79 M/mm3 (4.2-5.4); Red Cell Distribution Width 13.6 % (11.5-14.5); White Blood Count 7.3 K/mm3 (4.5-10.0)
[2021-06-30 07:34] LABS: Anion Gap 1 mmol/L (8-16); Blood Urea Nitrogen 11 mg/dL (7-17); Calcium 8.6 mg/dL (8.4-10.2); Carbon Dioxide 31 mmol/L (22-30); Chloride 102 mmol/L (98-107); Estimated CRCL calculation 62 ml/min; Estimated Glomerular Filt Rate 54; Glucose 119 mg/dL (65-110); Potassium 3.9 mmol/L (3.4-5.0); Sodium 134 mmol/L (137-145)
[2021-06-30] MEDS: FLUTICASONE/SALMETEROL 45-21 MCG INHALER 1 PUFF 2 PUFF INHALATION ×2 (08:13→21:50)
[2021-06-30] MEDS: HYDROcodone/acetaminophen (*CRX) 10-325 MG TABLET 1 TAB PO (08:26)
[2021-06-30] MEDS: ANASTROZOLE (*CHEMO) 1 MG TABLET PO (08:27)
[2021-06-30] MEDS: buPROPion HCL XL (24 HR) 150 MG TABCR 300 MG PO (08:27)
[2021-06-30] MEDS: PANTOPRAZOLE 40 MG TABLET PO (08:27)
[2021-06-30] MEDS: ENOXAPARIN 40 MG/0.4 ML SYRINGE SUB-Q (08:28)
[2021-06-30] MEDS: FERROUS SULFATE 324 MG TABLET PO (08:28)
[2021-06-30] MEDS: IPRATROPIUM NASAL SPRAY 0.03% 15 ML BOTTLE 2 SPRAY NASAL (08:32)
[2021-06-30 14:11] VITALS: BP 141/54; PULSE 75; RESP 16; TEMP 36.9; O2SAT 95
--- NOTE | 2021-06-30 15:28 | PM.PNGS ---
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 Pain control is better. Encouraged to ambulate. Probably home tomorrow morning if continues to do well. (2) Anemia: Code(s): D64.9 - Anemia, unspecified Status: Chronic Subjective Subjective Date/Time Seen: 06/30/21 15:28 Patient reports: still having pain, tolerating a regular diet, no bowel movement and afebrile Exam Const: General: comfortable, no acute distress, well developed, alert and awake Nutritional Appearance: obese Orientation/consciousness: patient oriented x3 GI: Inspection: incision ( all incisions dry and healing well) and obesity GI Palp: Yes Soft to palpation and Yes Tenderness to palpation present (GI) ( mild appropriate tenderness) Objective Data Vital Signs Vital Signs: Vital Signs - 24 hr 06/29/21 20:48 06/30/21 05:04 06/30/21 14:11 Temperature 36.0 C L 36.0 C L 36.9 C Pulse Rate 79 83 75 Respiratory Rate 18 18 16 Blood Pressure 142/56 H 150/67 H 141/54 H Pulse Oximetry 96 96 95 Intake/Output Intake/Output: Intake & Output 06/27/21 06/28/21 06/29/21 06/30/21 23:59 23:59 23:59 23:59 Intake Total 890 1620 390 Balance 890 1620 390 Meds/Results Medications: Active Medications Generic Name Dose Route Start Last Admin Trade Name Freq PRN Reason Stop Dose Admin Acetaminophen 500 mg 06/28/21 16:56 Acetaminophen 500 Mg Tablet PO Q6H PRN Mild Pain (1-3) or Fever Hydrocodone Bitart/Acetaminophen 1 tab 06/28/21 16:56 Hydrocodone/Acetaminophen (*Crx) 5-325 Mg Tablet PO Q4H PRN Pain Rated 4-6 Hydrocodone Bitart/Acetaminophen 1 tab 06/28/21 16:56 06/30/21 08:26 Hydrocodone/Acetaminophen (*Crx) 10-325 Mg Tablet PO 1 tab Q6H PRN Administration Pain Rated 7-10 Anastrozole 1 mg 06/29/21 09:00 06/30/21 08:27 Anastrozole (*Chemo) 1 Mg Tablet PO 1 mg DAILY OMERO Administration Bupropion HCl 300 mg 06/29/21 09:00 06/30/21 08:27 Bupropion Hcl Xl (24 Hr) 150 Mg Tabcr PO 300 mg QAM OMERO Administration Calcium Carbonate 500 mg 06/29/21 09:00 06/30/21 08:27 Calcium/Vitamin D 500 Mg Tablet PO 500 mg DAILY OMERO Administration Diphenhydramine HCl 25 mg 06/28/21 16:56 Diphenhydramine Hcl Inj 50 Mg/Ml Vial IV PUSH Q6H PRN Itching Enoxaparin Sodium 40 mg 06/29/21 09:00 06/30/21 08:28 Enoxaparin 40 Mg/0.4 Ml Syringe SUB-Q 40 mg DAILY [facility] Administration Ferrous Sulfate 324 mg 06/29/21 09:00 06/30/21 08:28 Ferrous Sulfate 324 Mg Tablet PO 324 mg DAILY OMERO Administration Ipratropium [place] 2 spray 06/28/21 16:56 06/30/21 08:32 Ipratropium Nasal [place] 0.03% 15 Ml Bottle NASAL 2 spray BID PRN Administration Congestion Lorazepam 0.5 mg 06/28/21 16:56 Lorazepam (*Crx) 0.5 Mg Tablet PO DAILY PRN Anxiety Morphine Sulfate 2 mg 06/28/21 16:56 06/29/21 06:42 Morphine Sulfate (*Crx) 2 Mg/Ml Inj IV PUSH 2 mg Q2H PRN Administration Pain Rated 4-6 Morphine Sulfate 4 mg 06/28/21 16:56 Morphine Sulfate (*Crx) 4 Mg/Ml Inj IV PUSH Q2H PRN Pain Rated 7-10 Naloxone HCl 0.1 mg 06/28/21 16:56 Naloxone Hcl 0.4 Mg/Ml Vial IV PUSH Q2M PRN Opiate Reversal Ondansetron HCl 4 mg 06/28/21 16:56 Ondansetron Inj 4 Mg/2 Ml Vial IV PUSH Q4H PRN Nausea And Vomiting Pantoprazole Sodium 40 mg 06/29/21 09:00 06/30/21 08:27 Pantoprazole 40 Mg Tablet PO 40 mg QAM OMERO Administration Fluticasone/Salmeterol 2 puff 06/28/21 20:00 06/30/21 08:13 Fluticasone/Salmeterol 45-21 Mcg Inhaler 1 Puff INHALATION 2 puff Q12HRT [facility] Administration Labs Labs: Laboratory Results - last 24 hr 06/30/21 06/30/21 07:01 07:01 WBC 7.3 RBC 3.79 L Hgb 11.9 L Hct 35.6 L MCV 93.
[2021-06-30 21:13] VITALS: BP 127/87; PULSE 77; RESP 20; TEMP 36.2; O2SAT 99
[2021-07-01 06:00] VITALS: BP 148/63; PULSE 77; RESP 14; TEMP 36.9; O2SAT 98
[2021-07-01] MEDS: FLUTICASONE/SALMETEROL 45-21 MCG INHALER 1 PUFF 2 PUFF INHALATION (07:37)
[2021-07-01] MEDS: FERROUS SULFATE 324 MG TABLET PO (08:18)
[2021-07-01] MEDS: PANTOPRAZOLE 40 MG TABLET PO (08:18)
[2021-07-01] MEDS: buPROPion HCL XL (24 HR) 150 MG TABCR 300 MG PO (08:18)
[2021-07-01] MEDS: ENOXAPARIN 40 MG/0.4 ML SYRINGE SUB-Q (08:18)
[2021-07-01] MEDS: ANASTROZOLE (*CHEMO) 1 MG TABLET PO (08:18)
--- NOTE | 2021-07-01 10:43 | PM.DS ---
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 Patient doing much better. Requiring nearly no pain medications and is eating better. Ambulating independently. Doing well. (2) UGI bleed: Code(s): K92.2 - Gastrointestinal hemorrhage, unspecified Status: Chronic (3) Anemia: Qualifiers: Anemia type: unspecified type Qualified Code(s): D64.9 - Anemia, unspecified Code(s): D64.9 - Anemia, unspecified Status: Chronic (4) BMI 38.0-38.9,adult: Code(s): Z68.38 - Body mass index [BMI] 38.0-38.9, adult Status: Chronic (5) HTN (hypertension): Qualifiers: Hypertension type: primary hypertension Qualified Code(s): I10 - Essential (primary) hypertension Code(s): I10 - Essential (primary) hypertension Status: Chronic (6) History of breast cancer: Code(s): Z85.3 - Personal history of malignant neoplasm of breast Status: Chronic DS: Summary Hospital Course Hospital Course: patient was noted on EGD May 11 to have a 4 cm submucosal gastric mass. This was the source of ulceration of the stomach bleeding and anemia. After being seen in the office and prepared for surgery, she was taken to the operating room on the day of admission 06/28/2021. Laparoscopic resection of the submucosal gastric mass was performed. Pathology is pending at the time of this dictation. The mass was larger than noted on EGD being being 10 x 8 cm. It appeared to be resected with clear margins. Postoperatively the patient had a straightforward recovery. She had a fair amount of postoperative discomfort and inability to ambulate independently. She also had some dysphagia. All of this was improving significantly by the day of discharge. She was taking very little for pain medication and ambulating quite well on her own. Her eating was improving also. Her blood counts were stable. Electrolytes were satisfactory. She is able to be discharged now on 07/01/2000 21 in good condition. Status at Discharge Overall status at discharge: patient is progressing back to baseline Time Spent with Patient Time attestation: Total time spent providing and/or coordinating discharge services: Exam Const: General: comfortable and no acute distress; No confusion Orientation/consciousness: patient oriented x3 and No confusion GI: Inspection: non-distended and incision ( Dry and healing well) GI Palp: Yes Soft to palpation, Yes Tenderness to palpation present (GI) ( minimal incisional tenderness), No Guarding due to palpation present (GI) and No Rebound tenderness present Auscultation: normal bowel sounds Neuro: General: patient oriented x3, no focal motor deficits and No confusion Extrem: General: no calf tenderness and no edema Psych: Affect: normal affect Insight: Good insight present (Psych) Judgement: Good judgement present (Psych) DS: Data Data Completed and Pending Pending studies at discharge: Pending at discharge 06/28/21 11:27 Surgical [PTH] Routine Discharge Plan Discharge Attending physician on discharge: Lionel Pichardo Discharging Clinician: Lionel Pichardo Anticipated Discharge Date/Time: 07/01/21 10:47 Patient Disposition: Home, Self-Care Activity: may shower, no straining and as tolerated Diet: regular Wound Care Instructions: incision open to air Discharge Instructions: Ambulate 3-4 x per day and as tolerated. No lifting over 15-20lbs. May bathe or shower. Stairs are OK. May drive a car in 3 days. Patient Instructions: Antibiotic F
== END 2021-07-01 11:30 | disposition home or self-care (01) | DRG 328 ==
LOC: ANHSURGERY 17:17 → ANH3MED 17:17
PROVIDERS: Admitting Provider Surgery; PCP Family Medicine Adolescent Medicine; Visit Provider Surgery
PROC: 0DV44ZZ Restriction of Esophagogastric Junction, Percutaneous Endoscopic Approach (ICD-10-PCS; CPT 43281; principal; 2021-06-28 10:30)
DX: D49.0 Neoplasm of unspecified behavior of digestive system (principal); Z85.3 Personal history of malignant neoplasm of breast; E66.9 Obesity, unspecified; Z68.37 Body mass index [BMI] 37.0-37.9, adult; N18.30 Chronic kidney disease, stage 3 unspecified; D64.9 Anemia, unspecified; K57.90 Diverticulosis of intestine, part unspecified, without perforation or abscess without bleeding; I12.9 Hypertensive chronic kidney disease with stage 1 through stage 4 chronic kidney disease, or unspecified chronic kidney disease; D50.0 Iron deficiency anemia secondary to blood loss (chronic); R13.10 Dysphagia, unspecified; K44.9 Diaphragmatic hernia without obstruction or gangrene
CPT/HCPCS: 36415; 80048; 85027; 88304; 88307; 88342; 94640; A9270; C1713; J0330; J0690; J1100; J1650; J2270; J2370; J2405; J2704; J2710; J7120

== ENCOUNTER → 2021-08-20 10:31 | Outpatient (CLI) | payer MEDICARE, SELFPAY ==
--- NOTE | ~2021-08-20 | MM_ITS ---
EXAMINATION: MM screening bernarda BI w sofia HISTORY: Screening mammogram, history of right breast cancer TECHNIQUE: Craniocaudal and mediolateral oblique 3-D tomosynthesis images were obtained and synthetic 2-D images were generated. CAD analysis was submitted and interpreted. COMPARISON: 08/16/2020, 01/13/2020, 08/18/2019 BREAST PARENCHYMAL COMPOSITION: The breasts are almost entirely fatty. FINDINGS: Lumpectomy changes are noted in the right breast. There is no evidence of suspicious mass, calcification, or architectural distortion to suggest malignancy in either breast. There has been no suspicious interval change. IMPRESSION: 1. No mammographic evidence of malignancy. 2. Recommend routine screening mammography in one year. BI-RADS Category 2: Benign finding(s). Reviewed, dictated and finalized at location A. T MAKER
== END ==
PROVIDERS: Visit Provider Internal Medicine Hematology & Oncology
DX: Z12.31 Encounter for screening mammogram for malignant neoplasm of breast (principal)
CPT/HCPCS: 77063; 77067

== ENCOUNTER → 2022-11-04 10:29 | Outpatient (CLI) | payer MEDICARE, SELFPAY ==
--- NOTE | ~2022-11-04 | MM_ITS ---
EXAMINATION: MM screening bernarda BI w sofia HISTORY: Screening mammogram TECHNIQUE: Craniocaudal and mediolateral oblique 3-D tomosynthesis images were obtained and synthetic 2-D images were generated. CAD analysis was submitted and interpreted. COMPARISON: 08/20/2021, 08/16/2020, 01/13/2020 BREAST PARENCHYMAL COMPOSITION:There are scattered areas of fibroglandular density. FINDINGS: Bilateral coarse calcifications and right breast surgical clips are present. No suspicious mass, calcification, or architectural distortion are identified in either breast to suggest malignanc y. There has been no suspicious interval change. IMPRESSION: No mammographic evidence of malignancy. Recommend routine screening mammography in one year. BI-RADS Category 2: Benign finding(s). Reviewed, dictated and finalized at location .
--- NOTE | ~2022-11-04 | DEXA_ITS ---
Bone Density Report Name: HELEN FOSS Age: 72 Sex: Female Ethnicity: White Date of : 1950 Indication: postmenopausal; screening for osteoporosis; height loss; cancer; Referring Provider: Greyson Arevalo Study: Bone densitometry was performed. Exam Date: November 04, 2022 Accession number: [id number] Bone Density: Region BMD T-score Z-score Classification AP Spine (L1, L4) 1.228 1.7 4.1 Normal Femoral Neck (Left) 0.874 0.2 2.3 Normal Total Hip (Left) 0.993 0.4 2.2 Normal Femoral Neck (Right) 0.874 0.2 2.3 Normal Total Hip (Right) 1.027 0.7 2.5 Normal Total Hip Mean 1.010 0.6 2.4 Normal World Health Organization criteria for BMD impression classify patients as: Normal (T-score at or above -1.0), Osteopenia (T-score between -1.0 and -2.5), or Osteoporosis (T-score at or below -2.5). 10-year Fracture Risk: FRAX not reported because: All T-scores for Spine Total, Hip Total, Femoral Neck at or above -1.0 Previous Exams: Region Exam Age BMD T-score BMD Change BMD Change Date g/cm2 vs Baseline vs Previous AP Spine(L1, L4) 11/04/2022 72 1.228 1.7 -0.175* -0.078* 08/18/2019 69 1.306 2.4 -0.096* -0.096* 01/24/2014 63 1.403 3.3 Total Hip(Left) 11/04/2022 72 0.993 0.4 -0.127* -0.107* 08/18/2019 69 1.101 1.3 -0.020 -0.020 01/24/2014 63 1.121 1.5 Total Hip(Right) 11/04/2022 72 1.027 0.7 -0.060* -0.058* 08/18/2019 69 1.084 1.2 -0.003 -0.003 01/24/2014 63 1.087 1.2 *Denotes significance at 95% confidence level, LSC for AP Spine = 0.022 g/cm2, LSC for Total Hip = 0.027 g/cm2 Clinical Information Provided by Patient: Has used the following medications: Vitamin D, Calcium, cancer medication (current) Has the following medical conditions: Cancer Patient maximum height was 71 Menopause Age: 49 No regular weight bearing exercise Does not regularly consume dairy products Drinks caffeinated beverages Onset of menses at age 10 Number of children 1 Impression: The patient has normal bone mass. The BMD for the AP Spine(L1, L4) decreased, changing by -0.078 since the last DXA exam. The BMD for the Total Hip(Left) decreased, changing by -0.107 since the last DXA exam. The BMD for the Total Hip(Right) decreased, changing by -0.058 since the last DXA exam. Discussion: LOW RISK OF FRACTURE; BONE DENSITY IS WELL
== END ==
PROVIDERS: PCP Family Medicine Adolescent Medicine; Visit Provider Internal Medicine Hematology & Oncology
DX: Z12.31 Encounter for screening mammogram for malignant neoplasm of breast (principal); M85.89 Other specified disorders of bone density and structure, multiple sites; Z78.0 Asymptomatic menopausal state
CPT/HCPCS: 77063; 77067; 77080

== ENCOUNTER 2022-11-05 10:30 | Outpatient (CLI) | payer MEDICARE, SELFPAY ==
[2022-11-05 10:45] LABS: Basophils Percent Auto 0.4 % (0.2-1.2); Eosinophils Absolute Auto 0.1 K/mm3 (0-0.3); Hematocrit 38.4 % (37.0-47.0); Hemoglobin 12.6 g/dL (12.0-15.0); Immature Granulocyte Absolute 0.01 K/mm3 (0.00-0.031); Immature Granulocyte Percent A 0.2 % (0-0.5); Lymphocytes Absolute Auto 1.25 K/mm3 (0.9-3.2); Lymphocytes Percent Auto 24.9 % (18.3-44.2); Mean Corpuscular HGB Conc 32.8 g/dl (32-36); Mean Corpuscular Hemoglobin 32.6 pg (26-34); Mean Corpuscular Volume 99.2 fl (80-100); Mean Platelet Volume 9.7 fl (7.4-10.4); Monocytes Absolute Auto 0.5 K/mm3 (0.1-0.6); Monocytes Percent Auto 9.9 % (2.6-8.5); Neutrophils Absolute Auto 3.2 K/mm3 (1.3-6.7); Neutrophils Percent Auto 62.6 % (45.5-73.1); Platelet Count Result 186 k/mm3 (150-375); Red Blood Count 3.87 M/mm3 (4.2-5.4); Red Cell Distribution Width 13.2 % (11.5-14.5)
[2022-11-05 13:13] LABS: Alanine Aminotransferase 38 U/L (6-35); Albumin Level 3.8 g/dL (3.5-5.1); Alkaline Phosphatase 106 U/L (38-126); Anion Gap 3 mmol/L (8-16); Aspartate Amino Transferase 42 U/L (14-36); Bilirubin,Total 0.6 mg/dL (0.2-1.3); Blood Urea Nitrogen 11 mg/dL (7-17); Calcium 8.9 mg/dL (8.4-10.2); Carbon Dioxide 32 mmol/L (22-30); Chloride 106 mmol/L (98-107); Estimated Glomerular Filt Rate > 60; Glucose 78 mg/dL (65-110); Potassium 3.9 mmol/L (3.4-5.0); Sodium 141 mmol/L (137-145)
== END 2022-11-05 10:31 | disposition home or self-care (01) ==
LOC: ANHLAB 10:30
PROVIDERS: PCP Family Medicine Adolescent Medicine; Visit Provider Internal Medicine Hematology & Oncology
DX: C50.411 Malignant neoplasm of upper-outer quadrant of right female breast (principal); Z17.0 Estrogen receptor positive status [ER+]
CPT/HCPCS: 36415; 80053; 85025

== ENCOUNTER 2023-05-05 10:25 | Outpatient (CLI) | payer MEDICARE, SELFPAY ==
[2023-05-05 16:49] LABS: Alanine Aminotransferase 31 U/L (6-35); Albumin Level 3.7 g/dL (3.5-5.1); Alkaline Phosphatase 78 U/L (38-126); Anion Gap 5 mmol/L (8-16); Aspartate Amino Transferase 38 U/L (14-36); Bilirubin,Total 0.7 mg/dL (0.2-1.3); Blood Urea Nitrogen 15 mg/dL (7-17); Calcium 9.1 mg/dL (8.4-10.2); Carbon Dioxide 31 mmol/L (22-30); Chloride 104 mmol/L (98-107); Estimated Glomerular Filt Rate 54; Glucose 98 mg/dL (65-110); Potassium 3.7 mmol/L (3.4-5.0); Sodium 140 mmol/L (137-145)
[2023-05-07 06:34] LABS: CA 15-3 17 U/mL (<32)
== END 2023-05-05 10:26 | disposition home or self-care (01) ==
LOC: ANHLAB 10:27
PROVIDERS: PCP Family Medicine Adolescent Medicine; Visit Provider Internal Medicine Hematology & Oncology
DX: C50.411 Malignant neoplasm of upper-outer quadrant of right female breast (principal); Z17.0 Estrogen receptor positive status [ER+]
CPT/HCPCS: 36415; 80053; 86300

== ENCOUNTER 2023-05-13 12:59 | Outpatient (CLI) | payer MEDICARE, SELFPAY ==
[2023-05-13 13:17] LABS: Basophils Percent Auto 0.8 % (0.2-1.2); Eosinophils Absolute Auto 0.1 K/mm3 (0-0.3); Eosinophils Percent Auto 2.4 % (0-4.4); Hematocrit 40.9 % (37.0-47.0); Hemoglobin 13.5 g/dL (12.0-15.0); Immature Granulocyte Absolute 0.02 K/mm3 (0.00-0.031); Immature Granulocyte Percent A 0.4 % (0-0.5); Lymphocytes Absolute Auto 1.34 K/mm3 (0.9-3.2); Lymphocytes Percent Auto 26.7 % (18.3-44.2); Mean Corpuscular Hemoglobin 33.2 pg (26-34); Mean Corpuscular Volume 100.5 fl (80-100); Mean Platelet Volume 9.3 fl (7.4-10.4); Monocytes Absolute Auto 0.4 K/mm3 (0.1-0.6); Monocytes Percent Auto 7.4 % (2.6-8.5); Neutrophils Absolute Auto 3.1 K/mm3 (1.3-6.7); Neutrophils Percent Auto 62.3 % (45.5-73.1); Platelet Count Result 160 k/mm3 (150-375); Red Blood Count 4.07 M/mm3 (4.2-5.4); Red Cell Distribution Width 12.4 % (11.5-14.5)
== END 2023-05-13 13:00 | disposition home or self-care (01) ==
LOC: ANHLAB 13:01
PROVIDERS: PCP Family Medicine Adolescent Medicine; Visit Provider Internal Medicine Hematology & Oncology
DX: C50.411 Malignant neoplasm of upper-outer quadrant of right female breast (principal); Z17.0 Estrogen receptor positive status [ER+]
CPT/HCPCS: 36415; 85025

== ENCOUNTER 2023-07-02 08:31 | Outpatient (CLI) | payer MEDICARE, SELFPAY ==
--- NOTE | ~2023-07-02 | US_ITS ---
EXAMINATION: US carotid duplex BI DATE: 07/02/2023 10:03 INDICATION: Personal history of TIA. TECHNIQUE: Grayscale, color Doppler, and pulsed Doppler images of the cervical carotid arteries were obtained. The degree of vessel stenosis is placed in one of the following categories: normal, <50%, 5 0-69%, >=70% but less than near-occlusion, near-occlusion, or total occlusion. Note that percent sten osis relative to normal distal artery lumen diameter is indirectly measured from velocity measurement s as described by Rik, et al. Radiology 2003; 229:340-346. Notes: Normal: Peak systolic velocity <125 centimeters/sec and no plaque <50%. Peak systolic velocity <125 ( EDV <40; ICA/CCA PSV ratio <2.0; used these factors only a tandem lesions or low cardiac output or co ntralateral disease) 50-69 %: PSV 125-230 (EDV 40-100; ratio 2-4) >= 70% but less than near occlusion: PSV greater than 230 (EDV > 100; ratio> 4.0) Near Occlusion: PSV that is variable; markedly narrowed lumen Occlusion: Absent flow on color/spectral Doppler and no lumen on ward scale. COMPARISON: None. FINDINGS: RIGHT: The right common carotid artery (CCA) peak systolic velocity (PSV) is 87 cm/s. The right internal car otid artery (ICA) PSV is 116 cm/s. The right ICA end-diastolic velocity (EDV) is 27 cm/s. The right I CA/CCA PSV ratio is 1.3. The external carotid artery (ECA) PSV is 67 cm/s. There is antegrade flow in the right vertebral artery. LEFT: The left CCA PSV is 128 cm/s. The left ICA PSV is 159 cm/s. The left ICA EDV is 66 cm/s. The left ICA /CCA PSV ratio is 1.2. The ECA PSV is 112 cm/s. There is antegrade flow in the left vertebral artery . IMPRESSION: 1. Less than 50% stenosis in the right internal carotid artery by sonographic criteria. 2. 50-69% stenosis in the left internal carotid artery by sonographic criteria. Reviewed, dictated and finalized at location B. STANT IMPRESSION: 1. Less than 50% stenosis in the right internal carotid artery by sonographic c chengeria. 2. 50-69% stenosis in the left internal carotid artery by sonographic criteria.
== END 2023-07-02 08:32 | disposition home or self-care (01) ==
PROVIDERS: PCP Family Medicine Adolescent Medicine; Visit Provider Nurse Practitioner Family
DX: I65.23 Occlusion and stenosis of bilateral carotid arteries (principal); Z86.73 Personal history of transient ischemic attack (TIA), and cerebral infarction without residual deficits
CPT/HCPCS: 93880

== ENCOUNTER 2023-10-10 11:11 | Outpatient (CLI) | payer MEDICARE, SELFPAY ==
--- NOTE | ~2023-10-10 | US_ITS ---
EXAMINATION: US thyroid DATE: 10/10/2023 11:31 INDICATION: Nontoxic multinodular goiter. TECHNIQUE: Multiple ultrasound images of the thyroid were obtained. COMPARISON: None. FINDINGS: The right thyroid lobe measures 4.4 x 1.6 x 1.4 cm. The left thyroid lobe measures 4.9 x 2.0 x 1.3 c m. The thyroid demonstrates heterogeneous echogenicity. Vascularity is normal. In the left thyroid l obe, there is an 8 mm solid, hypoechoic, wider than tall nodule with smooth margin without echogenic foci (TI-RADS TR4). In the left thyroid lobe, there is a 9 mm solid, hypoechoic, wider than tall nodu le with smooth margin without echogenic foci (TR4). In the right thyroid lobe, there is a 13 mm solid , isoechoic, wider than tall nodule with ill-defined margin without echogenic foci (TR3). In the righ t thyroid lobe, there is an 8 mm solid, hypoechoic, wider than tall nodule with smooth margin without echogenic foci (TR4). In the thyroid isthmus, there is a 17 mm solid, hypoechoic, wider than tall no dule with smooth margin without echogenic foci (TR4). IMPRESSION: 1. Multinodular goiter. Ultrasound-guided fine-needle aspiration of the 17 mm nodule in thyroid isthm us is recommended. Reviewed, dictated and finalized at location A. IMPRESSION: 1. Multinodular goiter. Ultrasound-guided fine-needle aspiration of the 17 mm n odule in thyroid isthmus is recommended.
== END 2023-10-10 11:12 ==
PROVIDERS: Visit Provider Internal Medicine
DX: E04.2 Nontoxic multinodular goiter (principal)
CPT/HCPCS: 76536

== ENCOUNTER 2023-10-10 11:35 | Outpatient (CLI) | payer MEDICARE, SELFPAY ==
[2023-10-10 13:58] LABS: Free T4 Free Thyroxine 0.79 ng/mL (0.78-2.19)
[2023-10-13 04:48] LABS: Thyroid Peroxidase Antibodies 66 IU/mL (<9)
== END 2023-10-10 11:36 | disposition home or self-care (01) ==
LOC: ANHLAB 11:36
PROVIDERS: Internal Medicine; Visit Provider Internal Medicine Hematology & Oncology
DX: E04.2 Nontoxic multinodular goiter (principal)
CPT/HCPCS: 36415; 84439; 84443; 86376

== ENCOUNTER 2023-12-18 13:44 | Outpatient (CLI) | payer MEDICARE, SELFPAY ==
--- NOTE | ~2023-12-18 | MM_ITS ---
EXAMINATION: MM screening bernarda BI w sofia HISTORY: Screening TECHNIQUE: Craniocaudal and mediolateral oblique 3-D tomosynthesis images were obtained and synthetic 2-D images were generated. CAD analysis was submitted and interpreted. COMPARISON: Comparison to multiple prior studies sequentially, with oldest reviewed study dated 08/18. BREAST PARENCHYMAL COMPOSITION: There are scattered areas of fibroglandular density. FINDINGS: There is no evidence of suspicious mass, calcification, or architectural distortion to sugg est malignancy in either breast. There has been no suspicious interval change. IMPRESSION: 1. No mammographic evidence of malignancy. 2. Recommend routine screening mammography in one year. BI-RADS Category 1: Negative Reviewed, dictated and finalized at location A.
== END 2023-12-18 13:45 ==
LOC: MICIMG 13:45
PROVIDERS: PCP Family Medicine Adolescent Medicine; Visit Provider Internal Medicine Hematology & Oncology
DX: Z12.31 Encounter for screening mammogram for malignant neoplasm of breast (principal)
CPT/HCPCS: 77063; 77067

== ENCOUNTER 2023-12-23 11:09 | Outpatient (CLI) | payer MEDICARE, SELFPAY ==
[2023-12-23 11:45] LABS: Basophils Percent Auto 0.7 % (0.2-1.2); Eosinophils Absolute Auto 0.1 K/mm3 (0-0.3); Eosinophils Percent Auto 1.3 % (0-4.4); Hematocrit 39.7 % (37.0-47.0); Hemoglobin 12.9 g/dL (12.0-15.0); Immature Granulocyte Absolute 0.01 K/mm3 (0.00-0.031); Immature Granulocyte Percent A 0.2 % (0-0.5); Lymphocytes Absolute Auto 1.31 K/mm3 (0.9-3.2); Mean Corpuscular HGB Conc 32.5 g/dl (32-36); Mean Corpuscular Hemoglobin 32.5 pg (26-34); Mean Platelet Volume 9.7 fl (7.4-10.4); Monocytes Absolute Auto 0.4 K/mm3 (0.1-0.6); Monocytes Percent Auto 8.2 % (2.6-8.5); Neutrophils Absolute Auto 2.7 K/mm3 (1.3-6.7); Neutrophils Percent Auto 60.6 % (45.5-73.1); Platelet Count Result 218 k/mm3 (150-375); Red Blood Count 3.97 M/mm3 (4.2-5.4); Red Cell Distribution Width 13.3 % (11.5-14.5); White Blood Count 4.5 K/mm3 (4.5-10.0)
[2023-12-23 12:50] LABS: Alanine Aminotransferase 14 U/L (6-35); Alkaline Phosphatase 110 U/L (38-126); Anion Gap 6 mmol/L (4-12); Aspartate Amino Transferase 28 U/L (14-36); Bilirubin,Total 0.5 mg/dL (0.2-1.3); Blood Urea Nitrogen 17 mg/dL (7-17); Calcium 9.4 mg/dL (8.4-10.2); Carbon Dioxide 24 mmol/L (22-30); Chloride 108 mmol/L (98-107); Estimated Glomerular Filt Rate 48; Glucose 87 mg/dL (65-110); Potassium 3.9 mmol/L (3.4-5.0); Sodium 138 mmol/L (137-145)
[2023-12-25 15:44] LABS: CA 15-3 19 U/mL (<32)
== END 2023-12-23 11:10 | disposition home or self-care (01) ==
LOC: ANHLAB 11:11
PROVIDERS: PCP Family Medicine Adolescent Medicine; Visit Provider Internal Medicine Hematology & Oncology
DX: C50.411 Malignant neoplasm of upper-outer quadrant of right female breast (principal); Z17.0 Estrogen receptor positive status [ER+]
CPT/HCPCS: 36415; 80053; 85025; 86300

== ENCOUNTER 2024-02-13 12:22 | Outpatient (CLI) | payer MEDICARE, SELFPAY ==
--- NOTE | ~2024-02-13 | US_ITS ---
EXAMINATION: US FNA w image guidance DATE: 02/13/2024 13:57 INDICATION: Thyroid nodule TECHNIQUE: A time-out was performed to verify the patient's name, date of , and procedure to be performed . The procedure and its benefits and risks were discussed with the patient. Risks specifically discus sed included bleeding and infection. The patient understood the risks and agreed to proceed. The neck was prepped and draped in the usual sterile manner. 2 mL 1% lidocaine was used for local anesthesia . 6 passes were made with a 25G needle into the lesion. Appropriate needle location was documented with continuous sonographic guidance. A sterile bandage was applied. There were no immediate compli cations. FINDINGS: Grayscale ultrasound images demonstrate biopsy needles advanced into a 1.7 cm TI RADS 4 nodule at the thyroid isthmus. IMPRESSION: 1. Successful ultrasound-guided fine needle aspiration of the 1.7 cm TI RADS 4 nodule at the thyroid isthmus. Reviewed, dictated and finalized at location A.
== END 2024-02-13 12:23 | disposition home or self-care (01) ==
PROVIDERS: PCP Family Medicine Adolescent Medicine; Visit Provider Internal Medicine
DX: E04.2 Nontoxic multinodular goiter (principal)
CPT/HCPCS: 10005; 88172; 88173; 88305

== ENCOUNTER 2024-09-24 10:29 | Outpatient (CLI) | payer MEDICARE, SELFPAY ==
[2024-09-24 10:42] LABS: Basophils Percent Auto 0.4 % (0.2-1.2); Eosinophils Absolute Auto 0.1 K/mm3 (0-0.3); Eosinophils Percent Auto 2.6 % (0-4.4); Hemoglobin 12.9 g/dL (12.0-15.0); Immature Granulocyte Absolute 0.01 K/mm3 (0.00-0.031); Immature Granulocyte Percent A 0.2 % (0-0.5); Lymphocytes Absolute Auto 1.18 K/mm3 (0.9-3.2); Lymphocytes Percent Auto 25.9 % (18.3-44.2); Mean Corpuscular HGB Conc 33.1 g/dl (32-36); Mean Corpuscular Hemoglobin 33.4 pg (26-34); Mean Platelet Volume 9.3 fl (7.4-10.4); Monocytes Absolute Auto 0.4 K/mm3 (0.1-0.6); Monocytes Percent Auto 9.2 % (2.6-8.5); Neutrophils Absolute Auto 2.8 K/mm3 (1.3-6.7); Neutrophils Percent Auto 61.7 % (45.5-73.1); Platelet Count Result 160 k/mm3 (150-375); Red Blood Count 3.86 M/mm3 (4.2-5.4); Red Cell Distribution Width 12.6 % (11.5-14.5); White Blood Count 4.6 K/mm3 (4.5-10.0)
[2024-09-24 11:36] LABS: Alanine Aminotransferase 22 U/L (6-35); Albumin Level 3.6 g/dL (3.5-5.1); Alkaline Phosphatase 86 U/L (38-126); Anion Gap 5 mmol/L (4-12); Aspartate Amino Transferase 32 U/L (14-36); Bilirubin,Total 0.6 mg/dL (0.2-1.3); Blood Urea Nitrogen 21 mg/dL (7-17); Calcium 9.1 mg/dL (8.4-10.2); Carbon Dioxide 30 mmol/L (22-30); Chloride 107 mmol/L (98-107); Estimated Glomerular Filt Rate 52; Glucose 86 mg/dL (65-110); Sodium 142 mmol/L (137-145)
[2024-09-25 07:48] LABS: CA 15-3 16 U/mL (<32)
== END 2024-09-24 10:30 | disposition home or self-care (01) ==
LOC: ANHLAB 10:30
PROVIDERS: PCP Family Medicine Adolescent Medicine; Visit Provider Internal Medicine Hematology & Oncology
DX: C50.411 Malignant neoplasm of upper-outer quadrant of right female breast (principal); Z17.0 Estrogen receptor positive status [ER+]
CPT/HCPCS: 36415; 80053; 85025; 86300

== ENCOUNTER 2024-10-14 10:30 | Outpatient (CLI) | payer MEDICARE, SELFPAY ==
--- OUTSIDE RECORDS SUMMARY | 2024-10-14 11:19 | XMS_ITS | Encounter Summary ---
Author Organization [facility] Address [address] [place] [address] Care Team Providers Care Homicide Squad Commanding Officer Name Role Phone Lonnie Brown MD Primary Care Provider [phone] Greyson Arevalo MD Unavailable [phone] Reason for Visit * Physical Therapy (Routine) - Authorized Specialty Diagnoses / Procedures Referred By Contac t Referred To Contact [facility] Physical Therapy Diagnoses Imbalance Spike Rodriguez MD [facility] [place] [address] Phone: tel: fax: [facility] [place] [place] [address] [place] [address] Phone: tel: fax: Referral ID Status Reason Start Date Expiration Date V isits Requested Visits Authorized [id number] Authorized 09/01/2024 11/01/2024 16 16 Encounter Details Date Type Department Care Team (Latest Contact Info) Description 10/12/2024 8:32 AM CDT - 10/12/2024 11:59 PM T Hospital Encounter [facility] [place] [place] [address] Spike Rodriguez MD [address] [place] [phone] Monica Mckeon PTA Discharge Disposition: Home or Self Care (Routine Discharge) Social History Tobacco Use Types Packs/Day Years Used Date Smoking Tobacco: Never Passive Smoke Exposure: Yes Smokeless Tobacco: Never 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 Alcohol Use Standard Drinks/Week Comments Not Currently 0 (1 standard drink = 0.6 oz pur e alcohol) OASIS D0700: Social Isolation Answer Da te Recorded Frequency of experiencing loneliness or isolatio n Sometimes 12/11/2023 OASIS A1250: Transportation Answer Date Recorded Lack of Transportation (Medical) No 12/11/2023 Lack of Transportation (Non-Medical) No 12/11/2023 Patient Unable or Declines to Respond No 12/11/2023 OASIS B1300: Health Literacy Answer Danny e Recorded Frequency of needing help to read materials from doctor or pharmacy Sometimes 12/11/2023 B1300 Health Literacy Answer Date Recor ded How often do you need to hav e someone help you when you read instructions, pamphlets, or other written material from your doctor or pharmacy? Patient declines to respond 11/06/2023 [facility] Utilities Answer Date Recorded In the past 12 months has [facility] [employer], or [employer] threatened to shut off services in your home? No 11/06/2023 Humiliation, Afraid, Rape, and Kick questionnair e Answer Date Recorded Within the last year, have y ou been afraid of your partner or ex-partner? No 11/06/2023 Within the last year, have y ou been humiliated or emotionally abused in other ways by your partner or ex-partner? No Within the last year, have y ou been kicked, hit, slapped, or otherwise physically hurt by your partner or ex-partner? No 11/06/2023 Within the last year, have y ou been raped or forced to have any kind of sexual activity by your partner or ex-partner? No 11/06/2023 Social Connection and Isolat ion Panel [NHANES] Answer Date Recorded In a typical week, how many times do you talk on the phone with family, friends, or neighbors? More than three times a week 11/06/2023 How often do you get togethe r with friends or relatives? More than three times a week 11/06/2023 How often do you attend [facility] or yarsani services? Never 11/06/2023 Do you belong to any clubs o r organizations such as scientology groups, unions, fraternal or athletic groups, or school groups? No 11/06/2023 How often do you attend meet ings of the clubs or organizations you belong to? Never 11/06/2023 Are you , , di vorced, , never , or living with a partner? 11/06/2023 AUDIT-C Answer Date Recorded Q1: How often do you have a drink containing alcohol? Never 11/06/2023 Q2: How many drinks containi ng alcohol do you have on a typical day when you are drinking? Patient does not drink Q3: How often do you have si x or more drinks on one occasion? Never 11/06/2023 Overall Financial Resource Strain (CARDIA) Answe r Date Recorded How hard is it for you to pa y for the very basics like food, housing, medical care, and heating? Not hard at all 11/06/2023 PHQ-2 Answer Date Recorded Patient Health Questionnaire-2 Score 0 04/27/2024 [facility] - Occupational Stress Questionnaire Answer Date Recorded Do you feel stress - tense, restless, nervous, or anxious, or unable to sleep at night because your mind is troubled all the time - these days? Not at all 11/06/2023 Exercise Vital Sign Answer Date Recorde d On average, how many days pe r week do you engage in moderate to strenuous exercise (like a brisk walk)? 0 days 11/06/2023 On average, how many minutes do you engage in exercise at this level? 0 min 11/06/2023 Hunger Vital Sign Answer Date Recorded Within the past 12 months, y ou worried that your food would run out before you got the money to buy more. Never true 11/06/19 24 Within the past 12 months, t he food you bought just didn't last and you didn't have money to get more. Never true 11/06/2023 PRAPARE - Transportation Answer Date Re corded In the past 12 months, has l ack of transportation kept you from medical appointments or from getting medications? No 10/26 In the past 12 months, has l ack of transportation kept you from meetings, work, or from getting things needed for daily living? No 11/06/2023 Housing Stability Vital Sign Answer Danny e Recorded In the last 12 months, was t here a time when you were not able to pay the mortgage or rent on time? No 09/12/2021 Number of Places Lived in the Last Year Not on f ile 09/12/2021 Unstable Housing in the Last Year Not on file 09/12/2021 Housing Stability Vital Sign Answer Danny e Recorded In the last 12 months, was t here a time when you were not able to pay the mortgage or rent on time? No 11/06/2023 In the past 12 months, how m any times have you moved where you were living? 0 11/06/2023 At any time in the past 12 m [facility], were you homeless or living in a mcc (including now)? 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 Answer Date of Assessment Author Status No 11/06/2023 3:17 PM CDT Krys Mosqueda R N Active * Do you have serious difficulty walking or climbing stairs? Answer Date of Assessment Author Status Yes 11/06/2023 3:17 PM CDT Krys Mosqueda R N Active * Do you have difficulty dressing or bathing? Answer Date of Assessment Author Status Yes 11/06/2023 3:17 PM CDT Krys Mosqueda R N Active * Because of a physical, mental, or emotional condition, do you have difficulty doing errands alone such as visiting a doctor's office or shopping? Answer Date of Assessment Author Status No 11/06/2023 3:17 PM CDT Krys Mosqueda R N Active documented as of this encounter Mental Status * Because of a physical, mental, or emotional condition, do you have serious difficulty concentrating, remembering, or making decisions? Answer Entry Date Author Status No 11/06/2023 3:17 PM CDT Krys Mosqueda R N Active documented in this encounter Medications at Time of Discharge AFO BRAKEAGAN, DME,Indications:L eft foot drop Apply 1 Device topically continuous prn. Left AFO 1 Device 3 albuterol sulfate HFA 108 (90 Base) MCG/ACT inhalerIndication s:Asthma Inhale 2 puffs into the lungs daily as needed. Indications: Asthma 0 anastrozole 1 MG tabletIndications :Breast cancer, surveillance Take 1 tablet by mouth nightly. 1 aspirin EC (ECOTRIN) 81 MG tabletIndications :Anticoagulant Therapy Take 1 tablet (81 mg total) by mouth daily. 30 tablet 4 atorvastatin (LIPITOR) 40 MG tablet Take 1 tablet (40 mg total) by mouth nightly at bedtime. 90 tablet 1 4 BONE STIMULATOR, DME,Indications:b [facility] Wear 4 hours daily. Can break up into multiple sessions totaling 4 hours. 1 Device 4 buPROPion XL 300 MG 24 hr tabletIndications :Depression Take 1 tablet (300 mg total) by mouth every morning. Indications: Depression 1 calcium, elemental, 600 MG tabletIndications :Vitamin Deficiency Take 1 tablet (600 mg total) by mouth 2 (two) times daily. 60 tablet 4 4 ferrous sulfate, 65 mg elemental, 325 (65 FE) MG tabletIndications :Vitamin Deficiency Take 1 tablet (325 mg total) by mouth daily. Indications: Vitamin Deficiency HYDROcodone-aceta minophen (NORCO) 5-325 MG tabletIndications :Acute Pain < 7 Day Supply Take 1 tablet by mouth every 6 (six) hours as needed. Indications: Acute Pain < 7 Day Supply 5 tablet 4 lidocaine 4 % patchIndications: Pain Place 2 patches onto the skin daily. Remove & Discard patch within 12 hours or as directed by 30 patch 4 metoprolol succinate ER (TOPROL XL) 12.5 mg TABLET SR 24 HR 24 hr tabletIndications :Hypertension Take 1 split tab (12.5 mg total) by mouth daily. 30 tablet 4 Misc. Devices MiscIndications:L umbar spine instability 1 each by Does not apply route continuous. LSO for continuous wear while ambulating or up in chair. 1 each 4 Multiple Vitamins-Minerals (CENTRUM ADULTS OR)Indications:Vi tamin Deficiency Take 1 tablet by mouth daily. Indications: Vitamin Deficiency naloxone (NARCAN) 4 MG/0.1ML nasal sprayIndications: Poisoning by, adverse effect and underdosing narcotics/psychod ysleptics 1 spray by Nasal route as needed for Opioid reversal. may repeat every 2 to 3 minutes in alternating nostrils until medical assistance becomes available 1 each 4 11/19/19 25 pantoprazole EC 40 MG tabletIndications :Gastroesophageal reflux disease (GERD), poorly controlled Take 1 tablet (40 mg total) by mouth daily. Indications: Gastroesophageal reflux disease (GERD), poorly controlled 1 SYMBICORT 160-4.5 MCG/ACT inhalerIndication s:Asthma Inhale 2 puffs into the lungs 2 (two) times daily. Indications: Asthma 1 vitamin D3, cholecalciferol, 125 mcg capsuleIndication s:Vitamin Deficiency Take 1 capsule (5,000 Units total) by mouth daily. 30 capsule 4 4 documented as of this encounter Progress Notes * Monica Mckeon, EMAIL ADMINISTRATOR - 10/12/2024 8:45 AM CDT Physical Therapy Visit Note: Patient Name: Michelle Araiza Diagnosis: Imbalance (primary encounter diagnosis) Weakness Gait abnormality SUBJECTIVE Therapy Visit Start Time: 844 Stop Time: 924 Time Calculation (min): 40 min Treatment Day: 9 Total Approved Visits: 16 Authorization Expiration Date: Insurance Guidelines: [facility] Medicare (Authorized (09/01/2024-11/01/2024), Re-Evaluate every 10th visit or 90 days (whichever occurs first), No Iontophoresis Coverage Therapy Plan of Care: Balance and proprioception training; dynamic balance activities, functional strengthening, vestibular habituation activities Current Therapy Orders: Eval and treat; vestibular therapy Diagnosis: Imbalance Referring Provider: Spike Rodriguez MD Consulting Provider: Lonnie Brown MD Precautions: hx depression, falls, stroke Date of Injury: chronic Work Status: Retired Subjective Note: Michelle has no reports of change since last session Response to prior treatment: Good - no adverse effects Compliance to Home Program: Compliant Reported Falls since last visit: none Medications changes since last visit : Off multivitamins to take blood test tomorrow Pain Other (comments): denies pain or dizziness OBJECTIVE Treatment provided today: Neuromuscular Re-education - 54395 Number of Minutes - 46997: 25 Intervention: Rockerboard Balance (A/P & M/L) - 1 min of holds each direction (held side to side due to back pain) Intervention: Rockerboard Taps (A/P & M/L) - 1 min of reps each direction (held side to side due to pain) Intervention: Static Standing on Airex Pad (Narrow Base of Support, Arms Crossed Over Chest) - x 1 min hold EO & EC Intervention: Static Standing on Airex Pad (Typical Base of Support, Arms Crossed Over Chest) - x 1min holds EO & EC (eyes opened and closed) Intervention: Stagger Stance Balance on Foam Pads - x 1 min holds EO & EC Intervention: Seated hip flexion w/ 3lb dumbbell- 2x10 reps each leg (focusing on eccentric control) Other (Comments): Performed to improve balance and proprioception Therapeutic Activities - 86822 Number of Minutes - 07816: 15 Intervention : NuStep Level 5 - x 5 minutes (Performed to improve functional LE strength) Intervention : Sit to stands w/ 2lb Medball - x10 reps Intervention : Walking marches in // bars w/ 0-1UE support - x2 laps Intervention : Crossovers in // bars w/ 1UE support - x1 lap Intervention : Step ups onto 4 step - x10 reps w/ intermittent BUE support Intervention : Forward hurdles - x2 lap one foot between each Intervention : Lateral hurdles - x1 lap Intervention : held - Ambulation around clinic with cues to look forward and step with heel hittingthe ground first - x136ft Other (Comments): Performed to improve functional strength and mobility needed for ADLs and community ambulation. Home Exercise Program Current Home Exercise Program: Resume current. Education Was Education Provided: Yes Topic: Education on importance of taking rest breaks to limit fatigue Recipient: Patient Method: Verbal Response: Verbalized understanding, Asked questions Barriers: None ASSESSMENT Assessment Note: Michelle presents to therapy on this date with no major changes since her last visit. She demonstrates decreased steadiness and more uncertainty on this date with balance activties. She expereinced some pain in the lower back with medial lateral rockerboard activties so they were held after a couple of reps attempting. Patient had to use more ANALYSIS INTERNSHIP on this date for // bar activity due to unsteadiness and nerves. Increased time for rest breaks on this date due to patient fatigue. Response to Treatment : GOOD - no adverse events PLAN Plan Changes: Held rockerbaord d/t pain, increased ANAL[employer] INTERNS[employer] with // bar activity Next Visit Plan: Focus on proprioception, balance training, and functional strengthening Total Time Total Time in Minutes: 40 Timed Code Treatment Minutes : 40 (Therapy Assistants ONLY) Supervising Therapist : Rose Mary Centeno PT documented in this encounter Plan of Treatment Upcoming Encounters Date Type Department Care Team (Late st Contact Info) Description 10/15/2024 10:15 AM CDT Appointment [facility] [place] [place] [address] Spike Rodriguez MD [address] [place] [phone] Monica Mckeon PTA 10/18/2024 1:00 PM CDT Office Visit [facility] Multispecialty Care - [facility] [address] [facility], [address] [place] [phone] Debbie Bustamante APRN [address] [facility] [address] [place] [address] 10/19/2024 9:00 AM CDT Appointment [facility] [place] [place] [address] Spike Rodriguez MD [address] [place] [phone] Rose Mary Centeno, PT [address] [place] [address] 10/21/2024 10:30 AM CDT Appointment [facility] [address] Spike Rodriguez MD [address] [place] [phone] Rose Mary Centeno, PT [address] [place] [address] 10/27/2024 9:00 AM CDT Office Visit [facility] Multispecialty Care - [address], [address] [place] [phone] Tamika Navarrete MD [address] [place] [address] 11/03/2024 1:00 PM CDT Office Visit [facility], [address] [place], [place] [address] Bel Kamara APRN [facility] [address] [place], [place] [phone] documented as of this encounter Goals Goal Patient Goal Type Associated Problems Recent Progress Patient-Stated? Author Safety - demonstrates understanding of home safety measures General No Mackenzie Casiano RN documented as of this encounter Visit Diagnoses Diagnosis Imbalance- Primary Abnormality of gait Weakness Other malaise and fatigue Gait abnormality Abnormality of gait documented in this encounter Care Teams Homicide Squad Commanding Officer Relationship Specialty Start Date End Date Lonnie Brown MD [address] [address] PCP - General FAMILY PRACTICE 06/19/21 Greyson Arevalo MD [address] [address] HEMATOLOGY/ONCOLOGY 09/17/21 documented as of this encounter
--- OUTSIDE RECORDS SUMMARY | 2024-10-14 11:19 | XMS_ITS | Encounter Summary ---
Author Organization [facility] Address [address] [place] [address] Care Team Providers Care Automated Logistics Specialist Name Role Phone Lonnie Brown MD Primary Care Provider [phone]- [phone] Encounter Details Date Type Department Care Team (Late st Contact Info) Description 11/19/2018 Chart Note [facility] Radiation Therapy [address] [place] [address] [place] [address] [place] [address] Social History Tobacco Use Types Packs/Day Years Used Date Smoking Tobacco: Never Smokeless Tobacco: Never Alcohol Use Standard Drinks/Week Comments Yes 0 (1 standard drink = 0.6 oz pur e alcohol) Comments No Sex and Gender Information Value Date Recorded Sex Assigned at Not on file Legal Sex Female 5:06 AM PHTHALIC ACID PURIFIER Gender Identity Not on file Sexual Orientation Not on file documented as of this encounter Plan of Treatment Upcoming Encounters Date Type Department Care Team (Late st Contact Info) Description 04/14/2025 11:45 AM CDT Office Visit [facility] Oncology and Hematology - [place] [address] [place] [address] Greyson Arevalo MD [address] [facility] [address] [place] [address] documented as of this encounter Visit Diagnoses Not on filedocumented in this encounter Care Teams Automated Logistics Specialist Relationship Specialty Start Date End Date Lonnie Brown MD [address] [address] PCP - General Family Practice 09/14/18 documented as of this encounter
--- OUTSIDE RECORDS SUMMARY | 2024-10-14 11:19 | XMS_ITS | Clinical Summary ---
Author Organization [facility] Address [address] [place] [address] Care Team Providers Care Senior Portfolio Manager Name Role Phone Lnonie Brown MD Primary Care Provider [phone] Greyson Arevalo MD Unavailable [phone] Allergies Active Allergy Reactions Criticality Noted Date Comments Pollen Extract Other (see comment) Medium 02/04/2023 Sneezing, itching, scratchy throat, sob Ragweed Runny Nose 06/19/2021 Medications albuterol sulfate HFA 108 (90 Base) MCG/ACT inhalerIndicatio ns:Asthma Inhale 2 puffs into the lungs daily as needed. Indications: Asthma 06/16/20 20 Active anastrozole 1 MG tabletIndication s:Breast cancer, surveillance Take 1 tablet by mouth nightly. 03/09/20 21 Active SYMBICORT 160-4.5 MCG/ACT inhalerIndicatio ns:Asthma Inhale 2 puffs into the lungs 2 (two) times daily. Indications: Asthma 03/10/20 21 Active buPROPion XL 300 MG 24 hr tabletIndication s:Depression Take 1 tablet (300 mg total) by mouth every morning. Indications: Depression 03/28/20 21 Active ferrous sulfate, 65 mg elemental, 325 (65 FE) MG tabletIndication s:Vitamin Deficiency Take 1 tablet (325 mg total) by mouth daily. Indications: Vitamin Deficiency Active pantoprazole EC 40 MG tabletIndication s:Gastroesophage al reflux disease (GERD), poorly controlled Take 1 tablet (40 mg total) by mouth daily. Indications: Gastroesophageal reflux disease (GERD), poorly controlled 06/05/20 21 Active Multiple Vitamins-Mineral s (CENTRUM ADULTS OR)Indications:V itamin Deficiency Take 1 tablet by mouth daily. Indications: Vitamin Deficiency Active AFO BRACE, DME,Indications: Left foot drop Apply 1 Device topically continuous prn. Left AFO 1 Device 07/15/20 Active BONE STIMULATOR, DME,Indications: bone health Wear 4 hours daily. Can break up into multiple sessions totaling 4 hours. 1 Device 08/22/19 24 Active Misc. Devices MiscIndications: Lumbar spine instability 1 each by Does not apply route continuous. LSO for continuous wear while ambulating or up in chair. 1 each 08/22/19 24 Active calcium, elemental, 600 MG tabletIndication s:Vitamin Deficiency Take 1 tablet (600 mg total) by mouth 2 (two) times daily. 60 tablet 4 11/06/19 24 Active vitamin D3, cholecalciferol, 125 mcg capsuleIndicatio ns:Vitamin Deficiency Take 1 capsule (5,000 Units total) by mouth daily. 30 capsule 4 11/06/19 24 Active metoprolol succinate ER (TOPROL XL) 12.5 mg TABLET SR 24 HR 24 hr tabletIndication s:Hypertension Take 1 split tab (12.5 mg total) by mouth daily. 30 tablet 11/07/19 24 Active Additional Information Patient not taking.Reported on 05/27/2024 aspirin EC (ECOTRIN) 81 MG tabletIndication s:Anticoagulant Therapy Take 1 tablet (81 mg total) by mouth daily. 30 tablet 11/20/19 24 Active HYDROcodone-acet aminophen (NORCO) 5-325 MG tabletIndication s:Acute Pain < 7 Day Supply Take 1 tablet by mouth every 6 (six) hours as needed. Indications: Acute Pain < 7 Day Supply 5 tablet 11/19/19 24 Active Additional Information Patient not taking.Informant: Self, Reported on 04/29/2024 lidocaine 4 % patchIndications :Pain Place 2 patches onto the skin daily. Remove & Discard patch within 12 hours or as directed by 30 patch 11/19/19 24 Active naloxone (NARCAN) 4 MG/0.1ML nasal sprayIndications :Poisoning by, adverse effect and underdosing narcotics/psycho dysleptics 1 spray by Nasal route as needed for Opioid reversal. may repeat every 2 to 3 minutes in alternating nostrils until medical assistance becomes available 1 each 11/19/19 24 025 Active atorvastatin (LIPITOR) 40 MG tablet Take 1 tablet (40 mg total) by mouth nightly at bedtime. 90 tablet 1 04/29/20 24 Active Active Problems Problem Noted Date Diagnosed Date Sacroiliitis 11/17/2023 Trochanteric bursitis of both hips 11/17/2023 Physical deconditioning 11/07/2023 S/P lumbar fusion 11/03/2023 S/P lumbar laminectomy 11/03/2023 Spondylolisthesis of lumbar region 02/10/2023 Multinodular goiter 10/29/2022 Ulnar neuropathy of right upper extremity 2022 Numbness and tingling in right hand 12/27/2021 Myelomalacia ([facility]) 09/14/2021 S/P cervical spinal fusion 09/13/2021 Myelopathy ([facility]) 09/12/2021 Gastrointestinal stromal tumor (GIST) ([facility]) 06/27/2021 Overview (09/13/2021): Unifocal disease status post laparoscopic partial gastrectomy Arthritis Asthma ([facility]) Stroke ([facility]) Overview (09/13/2021): 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 08/01/21 Hyperlipidemia CKD (chronic kidney disease) stage 3, GFR 30-59 ml/min Peripheral neuropathy Iron deficiency anemia Resolved Problems Problem Noted Date Diagnosed Date Resolved Date Lumbar spine instability 11/03/2023 Degenerative disc disease, lumbar 11/03/2023 11/17/2023 Lumbar radiculopathy 05/26/2023 024 Thoracic spinal stenosis 02/10/2023 Spinal stenosis of lumbar re gion with neurogenic claudication 02/10/2023 11/17/2023 Foraminal stenosis of lumbar region 02/10/2023 11/17/2023 Facet hypertrophy of lumbar region 02/10/2023 11/17/2023 Radiculopathy, cervical region 09/14/2021 11/03/2023 DDD (degenerative disc disease), cervical 09/14/2021 11/03/2023 Spinal stenosis of cervical region 09/14/2021 11/03/2023 Foraminal stenosis of cervical region 09/14/2021 11/03/2023 Cervical spine instability 09/13/2021 0 11/03/2023 Encounters Date Type Department Care Team Description 10/13/2024 Telephone [facility] [address] [place] [address] Debbie Bustamante, SKEIN DYER Question 10/13/2024 Orders Only [facility] [address] [place] [address] Debbie Bustamante, SKEIN DYER 10/12/2024 8:32 AM CDT - 10/12/2024 11:59 PM CDT Hospital En[facility] [place] [address] Spike Rodriguez MD Lewis, Molly A, TELESERVICES REPRESENTATIVE Discharge Disposition: Home or Self Care (Routine Discharge) 10/11/2024 12:33 PM CDT - 10/11/2024 11:59 PM CDT Hospital En[facility] [place] [place] [address] Debbie Bustamante, SKEIN DYER Arrived Discharge Disposition: Home or Self Care (Routine Discharge) 10/11/2024 Travel 10/07/2024 8:53 AM CDT - 10/07/2024 11:59 PM CDT Hospital Encounter [facility] [place] [address] Spike Rodriguez MD Erickson, Alisa R, PT Discharge Disposition: Home or Self Care (Routine Discharge) 10/07/2024 Travel 10/05/2024 10:16 AM CDT - 10/05/2024 11:59 PM CDT Hospital En[facility] [place] [address] Spike Rodriguez MD Erickson, Alisa R, PT Discharge Disposition: Home or Self Care (Routine Discharge) 10/05/2024 Travel 10/01/2024 10:26 AM ENERGY MANAGER - 10/01/2024 11:59 PM ENERGY MANAGER Hospital En[facility] [place] [address] Spike Rodriguez MD Erickson, Alisa R, PT Discharge Disposition: Home or Self Care (Routine Discharge) 10/01/2024 Travel 09/27/2024 2:03 PM ENERGY MANAGER - 09/27/2024 11:59 PM ENERGY MANAGER Hospital En[facility] [place] [address] Spike Rodriguez MD Erickson, Alisa R, PT Discharge Disposition: Home or Self Care (Routine Discharge) 09/27/2024 Travel 09/23/2024 9:45 AM ENERGY MANAGER - 09/23/2024 11:59 PM ENERGY MANAGER Hospital [facility] [place] [address] Spike Rodriguez MD Erickson, Alisa R, PT Discharge Disposition: Home or Self Care (Routine Discharge) 09/23/2024 Travel 09/21/[address] [facility] [place] [address] Rose Mary Centeno, PT Called To Cancel Office Appt. 09/16/2024 10:41 AM ENERGY MANAGER - 09/16/2024 11:59 PM ENERGY MANAGER [facility] [place] [address] Spike Rodriguez MD Erickson, Alisa R, PT Discharge Disposition: Home or Self Care (Routine Discharge) 09/16/2024 Travel 09/14/2024 Telephone [facility] [place] [address] Rose Mary Centeno, PT Reschedule 09/10/2024 7:37 AM ENERGY MANAGER - 09/10/2024 11:59 PM ENERGY MANAGER Hospital Encounter [facility] [place] [address] Spike Rodriguez MD Dietz, Courtnie K, TELESERVICES REPRESENTATIVE Discharge Disposition: Home or Self Care (Routine Discharge) 09/10/2024 Travel 09/06/2024 9:16 AM ENERGY MANAGER - 09/06/2024 11:59 PM ENERGY MANAGER Hospital [place]counter [place] [address] Spike Rodriguez MD Erickson, Alisa R, PT Discharge Disposition: Home or Self Care (Routine Discharge) 09/06/2024 Travel from Last 3 Months Immunizations Name Administration Dates Next Due Pneumococcal (Prevnar 20) 11/07/2023 Family History Medical History Relation Comments Cancer Cousin breast- 3 cousin s Sleep Apnea Cousin skeletal problems Daughter COPD Father Heart Disease Father Cancer Maternal Grandfather colon Cancer Maternal Grandmother throat Cancer Mother leukemia Diabetes Mother Heart Disease Mother Heart Disease Paternal Grandfather Heart Disease Paternal Grandmother RI Paternal Grandmother Relation Status Comments Cousin Daughter Alive Father Maternal Grandfather Maternal Grandmother Mother Paternal Grandfather (Age 34) Paternal Grandmother Social History Tobacco Use Types Packs/Day Years Used Date Smoking Tobacco: Never Passive Smoke Exposure: Yes Smokeless Tobacco: Never Tobacco Cessation:Counseling Given: Not Answered Comments:two weeks in college 60 yrs ago Alcohol Use Standard Drinks/Week [...] or pharmacy? Patient declines to respond 11/06/2023 [facility] Utilities Answer Date Recorded In the past 12 months has [facility] [employer], or water [employer] threatened to shut off services in your [...] week 11/06/2023 How often do you attend chur ch or druze services? Never 11/06/2023 Do you belong to any clubs o r organizations such as jew groups, unions, fraternal or athletic groups, or [...] Recorded Patient Health Questionnaire-2 Score 0 04/27/2024 [facility] Occupat ional [facility] - Occupational Stress Questionnaire Answer Date Recorded [...] any time in the past 12 m [facility], were you homeless or living in a [place] health care facility (including now)? 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 Not on file Not on file Not on f ile Last Filed Vital Signs Vital Sign Reading Time Taken Comments Blood Pressure 138/82 06/14/2024 9:40 AM ENERGY MANAGER Pulse 89 06/14/2024 9:40 AM ENERGY MANAGER Temperature 36.7 C (98 F) 06/14/2024 9:40 AM ENERGY MANAGER Respiratory Rate 18 05/27/2024 1:17 PM CDT Oxygen Saturation 99% 06/14/2024 9:40 AM ENERGY MANAGER Inhaled Oxygen Concentration - - Weight 91.2 kg (201 lb) 06/14/2024 9:40 AM ENERGY MANAGER Height 172.7 cm (5' 8 ) 06/14/2024 9:40 AM ENERGY MANAGER Body Mass Index 30.56 06/14/2024 9:40 AM ENERGY MANAGER Plan of Treatment Upcoming Encounters Date Type Department Care Team (Late st Contact Info) Description 10/15/2024 10:15 AM CDT Appointment [facility] [place] [address] [place] [address] Spike Rodriguez MD [address] [place] [address] Monica Mckeon PTA 10/18/2024 1:00 PM CDT Office Visit [facility] Mult[facility] Care - [facility] [address] [facility], [address] [place] [phone] Debbie Bustamante, SKEIN DYER [address] [facility] [address] [place] [address] 10/19/2024 9:00 AM CDT Appointment [facility] [place] [address] [place] [address] Spike Rodriguez MD [address] [place] [phone] Rose Mary Centeno, PT [address] [place] [address] 10/21/2024 10:30 AM CDT Appointment [facility] [place] [place] [address] [place] [address] Spike Rodriguez MD [address] [place] [address] Rose Mary Centeno, PT [address] [place] [address] 10/27/2024 9:00 AM CDT Office Visit [facility] Mult[facility] - [facility] [address] [facility], [address] [place] [phone] Tamika Navarrete MD [address] [place] [address] 11/03/2024 1:00 PM CDT Office Visit Juli Luna-[facility], [address] [place] [address] Bel Kamara, LACEY [facility]. [address] [place], [place] [id number] Health Maintenance Due Date Last Done Comments Hepatitis C 1966 DTaP, Tdap and Td Vaccines (1 - Tdap) 1967 Zoster Vaccines (1 of 2) 1998 Annual Medicare Wellness Visit 2013 Dexa Scan (General) 2013 RSV Immunization or 60+ Years (1 - 1-dose 75+ series) 2023 COVID-19 Vaccine ( season) 2024 07/10/2023, 06/05/2022, 01/15/2022, Additional history exists Influenza Adult (#1) 2024 PHQ-2 (Physician [place]) 07/28/2024 04/27/2024 Pneumococcal Vaccine: 65+ Years Completed 11/07/2023 Meningococcal B Vaccine Aged Out No l onger eligible based on patient's age to complete this topic Meningococcal Vaccine Aged Out No jessi lynn eligible based on patient's age to complete this topic RSV Immunizations Under 20 Months Aged Out No longer eligible based on patient's age to complete this topic Goals Goal Patient Goal Type Associated Problems Recent Progress Patient-Stated? Author Safety - demonstrates understanding of home safety measures General No Mackenzie Casiano RN Medical Devices Implanted Type Area Bag Machine Tender Device Identifier Shelf Expiration Date Model / Serial / Lot Implant Magnifuse Bone Graft 1 X 10cm - [id number] Implanted:Qt y: 1 on 11/03/2023 by Octavio Lucas MD at [facility] Bone N/A: Spine Lumbar [employer] [id number] 09/23/2025 [id number] / [id number] / . Filler Bone 5cc 12.5cc Calcium Sulfate Stimulan Rapid Cure - [id number] Implanted:Qt y: 1 on 11/03/2023 by Octavio Lucas MD at [facility] Bone N/A: Spine Lumbar [employer] [id number] 08/27/2025 [id number] / / [id number] 4.75 X 90 Mm Prince Implanted:Qt y: 1 on 11/03/2023 by Octavio Lucas MD at [facility] Prince N/A: Spine Lumbar [employer] . [id number] / / . 4.75 X 100 Mm Prince Implanted:Qt y: 1 on 11/03/2023 by Octavio Lucas MD at [facility] Prince N/A: Spine Lumbar [employer] . [id number] / / . 6.5 X 45 Mm Screws Implanted:Qt y: 4 on 11/03/2023 by Octavio Lucas MD at [facility] Screw N/A: Spine Lumbar [employer] . [id number] / / . 7.5 X 40 Mm Screws Implanted:Qt y: 1 on 11/03/2023 by Octavio Lucas MD at [facility] Screw N/A: Spine Lumbar [employer] . [id number] / / . 7.5 X 45 Mm Screws Implanted:Qt y: 2 on 11/03/2023 by Octavio Lucas MD at [facility] Screw N/A: Spine Lumbar [employer] . [id number] / / . 6.5 X 40 Mm Screws Implanted:Qt y: 1 on 11/03/2023 by Octavio Lucas MD at [facility] Screw N/A: Spine Lumbar [employer] . [id number] / / . Bio 4 Viable Bone Matrix- Spine Implanted:Qt y: 1 on 09/12/2021 by Octavio Lucas MD at [facility] N/A: Spine Cervical ERMA SPINE - DIV ERMA PRAVEENA 12/29/2023 [id number] / / [id number] Description:C5-C7 [place] Interbody System Cervical Interbody [id number] Implanted:Qt y: 2 on 09/12/2021 by Octavio Lucas MD at [facility] N/A: Spine Cervical [id number] 01/06/2026 [id number] / / [id number] Plate Implanted:Qt y: 1 on 09/12/2021 by Octavio Lucas MD at [facility] N/A: Spine Cervical [id number] / / 4.0 Screws Implanted:Qt y: 6 on 09/12/2021 by Octavio Lucas MD at [facility] N/A: Spine Cervical [id number] / / Solera Set Screws Implanted:Qt y: 8 on 11/03/2023 by Octavio Lucas MD at [facility] N/A: Spine Lumbar [employer] . [id number] / / . Explanted Type Area Bag Machine Tender Device Identifier Shelf Expiration Date Model / Serial / Lot Distration Pin 12mm - [id number] Explanted:Qty: 2 on 09/12/2021 by Octavio Lucas MD at [facility] Pin N/A: Spine Cervical [facility] [id number] / / Procedures Procedure Name Priority Date/Time Associated Diagnosis Comments CT LUMB SPINE WO CON Routine 10/11/2024 12:54 PM CDT S/P lumbar fusion from Last 3 Months Results * CT LUMB SPINE WO CON (10/11/2024 12:54 PM CDT) Anatomical Region Laterality Modality Spine Computed Tomogra phy 10/12/2024 8:18 PM CDT Impressions 10/12/2024 8:23 PM CDT IMPRESSION: 1. No acute osseous abnormalities identified. 2. Stable T12 compression fracture. 3. No evidence of hardware complication. 4. There is a simple appearing fluid collection within the posterior subcutaneous tissues at the postsurgical levels, likely related to postoperative seroma formation unless there are clinical/laboratory signs of infection. This appears similar but slightly progressed from the prior examination. This measures approximately 4.0 x 3.5 x 12.5 cm. 5. Diffuse osseous demineralization. 6. Multilevel degenerative disc disease and facet arthropathy as detailed above. Ordered By: DEBBIE BUSTAMANTE Interpreted By: Tomas Braga DO, 10/12/2024 8:18 PM Narrative 10/12/2024 8:23 PM CDT [address] [address] EXAMINATION: CT LUMB SPINE WO CON HISTORY: Previous low back pain treated with lumbar spinal fusion surgery. Follow-up. COMPARISON: CT lumbar spine 04/14/2024. TECHNIQUE: Axial CT images of the lumbar spine without the use of intravenous contrast. Sagittal and coronal reformatted image sets. A dose lowering technique was used for this procedure, which may include, but is not limited to, dose reduction technique, automated exposure control, the use of degenerative reconstruction, and ALARA/image gently techniques. FINDINGS: There is lumbar scoliosis. Stable T12 compression fracture. Stable mild osseous retropulsion. There is diffuse osseous demineralization. No evidence of acute fracture or dislocation. No new areas of vertebral body height loss. There is significant multilevel degenerative disc disease and facet arthropathy throughout the lumbar spine. There is posterior spinal fusion hardware from L2-L5. No evidence of hardware loosening or breakage. No evidence of hardware complication. No evidence of acute osseous impingement upon the spinal canal or neural foramina. There is a simple appearing fluid collection within the posterior subcutaneous tissues at the postsurgical levels, likely related to postoperative seroma formation. This appears similar but slightly progressed from the prior examination. This measures approximately 4.0 x 3.5 x 12.5 cm. There is atherosclerotic calcification of the abdominal aorta. There is partially imaged colonic diverticulosis. No visible inflammatory changes. The heart appears enlarged. Procedure Note Tomas Braga DO - 10/12/2024 [address] [place], [place] [address] EXAMINATION: CT LUMB SPINE WO CON HISTORY: Previous low back pain treated with lumbar spinal fusion surgery.Follow-up. COMPARISON: CT lumbar spine 04/14/2024. TECHNIQUE: Axial CT images of the lumbar spine without the use of intravenouscontrast. Sagittal and coronal reformatted image sets. A dose lowering technique was used for this procedure, which may include,but is not limited to, dose reduction technique, automated exposurecontrol, the use of degenerative reconstruction, and ALARA/image gentlytechniques. FINDINGS: There is lumbar scoliosis. Stable T12 compression fracture. Stable mildosseous retropulsion. There is diffuse osseous demineralization. Noevidence of acute fracture or dislocation. No new areas of vertebral bodyheight loss. There is significant multilevel degenerative disc disease andfacet arthropathy throughout the lumbar spine. There is posterior spinalfusion hardware from L2-L5. No evidence of hardware loosening or breakage.No evidence of hardware complication. No evidence of acute osseousimpingement upon the spinal canal or neural foramina. There is a simpleappearing fluid collection within the posterior subcutaneous tissues atthe postsurgical levels, likely related to postoperative seroma formation.This appears similar but slightly progressed from the prior examination.This measures approximately 4.0 x 3.5 x 12.5 cm. There is atheroscleroticcalcification of the abdominal aorta. There is partially imaged colonicdiverticulosis. No visible inflammatory changes. The heart appearsenlarged. IMPRESSION: 1. No acute osseous abnormalities identified. 2. Stable T12 compression fracture. 3. No evidence of hardware complication. 4. There is a simple appearing fluid collection within the posteriorsubcutaneous tissues at the postsurgical levels, likely related topostoperative seroma formation unless there are clinical/laboratory signsof infection. This appears similar but slightly progressed from the priorexamination. This measures approximately 4.0 x 3.5 x 12.5 cm. 5. Diffuse osseous demineralization. 6. Multilevel degenerative disc disease and facet arthropathy as detailedabove. Ordered By: DEBBIE BUSTAMANTE Interpreted By: Tomas Braga DO, 10/12/2024 8:18 PM us Debbie Bustamante SKEIN DYER CT Final Resu lt from Last 3 Months Insurance [facility] Advance Directives * Full Code (Latest Code Status on File) Date Activated Date Inactivated Comments 11/24/2023 9:03 AM 05/27/2024 12:02 PM * Full Code Date Activated Date Inactivated Comments 11/20/2023 9:45 AM 11/24/2023 9:02 AM * Full Code Date Activated Date Inactivated Comments 11/06/2023 5:31 PM 11/19/2023 2:27 PM * Full Code Date Activated Date Inactivated Comments 11/03/2023 11:49 AM 11/06/2023 3:00 PM * Full Code Date Activated Date Inactivated Comments 09/12/2021 6:22 PM 09/14/2021 1:21 PM Care Teams Senior Portfolio Manager Relationship Specialty Start Date End Date Lonnie Brown MD [address] [place] [id number] PCP - General FAMILY PRACTICE 06/19/21 Greyson Arevalo MD [address] [place] [id number] HEMATOLOGY/ONCOLOGY 09/17/21
--- OUTSIDE RECORDS SUMMARY | 2024-10-14 11:19 | XMS_ITS | Encounter Summary ---
Author Organization [facility] - [facility] Address [address] [place] [address] Care Team Providers Care Salesforce Developer Name Role Phone Lonnie Brown MD Primary Care Provider [phone]- [phone] Greyson Arevalo MD Unavailable [phone] Encounter Details Date Type Department Care Team (Late st Contact Info) Description 04/24/2022 MyChart Message Enc 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 No 09/12/2021 Within the last year, have y ou been humiliated or emotionally abused in other ways by your partner or ex-partner? No Within the last year, have y ou been kicked, hit, slapped, or otherwise physically hurt by your partner or ex-partner? No 09/12/2021 Within the last year, have y ou been raped or forced to have any kind of sexual activity by your partner or ex-partner? No 09/12/2021 Social Connection and Isolat ion Panel [NHANES] Answer Date Recorded In a typical week, how many times do you talk on the phone with family, friends, or neighbors? More than three times a week 09/12/2021 How often do you get togethe r with friends or relatives? More than three times a week 09/12/2021 How often do you attend chur or mandaen services? Never 09/12/2021 Active Member of Clubs or Organizations Not on f ile 09/12/2021 Attends Club or Organization Meetings Not on hugo e 09/12/2021 Marital Status Not on file 09/12/2021 AUDIT-C Answer Date Recorded Q1: How often do you have a drink containing alc ohol? Never 09/12/2021 Average Number of Drinks Not on file 022 Frequency of Binge Drinking Not on file 08/28 Overall Financial Resource Strain (CARDIA) Answe r Date Recorded How hard is it for you to pa y for the very basics like food, housing, medical care, and heating? Not hard at all 09/12/2021 Hunger Vital Sign Answer Date Recorded Within the past 12 months, y ou worried that your food would run out before you got the money to buy more. Never true 09/12/19 22 Within the past 12 months, t he food you bought just didn't last and you didn't have money to get more. Never true 09/12/2021 PRAPARE - Transportation Answer Date Re corded In the past 12 months, has l ack of transportation kept you from medical appointments or from getting medications? No 08/28 In the past 12 months, has l ack of transportation kept you from meetings, work, or from getting things needed for daily living? No 09/12/2021 Housing Stability Vital Sign Answer Danny e Recorded In the last 12 months, was t here a time when you were not able to pay the mortgage or rent on time? No 09/12/2021 Number of Places Lived in the Last Year Not on f ile 09/12/2021 Unstable Housing in the Last Year Not on file 09/12/2021 Comments No Sex and Gender Information Value Date Recorded Sex Assigned at Female 09/02/2024 11:36 AM PORTABLE TRACK LINE MARKER Legal Sex Female 11:34 AM CDT Gender Identity Female 08/02/2021 3:56 PM PORTABLE TRACK LINE MARKER Sexual Orientation Not on file COVID-19 Exposure Response Date Recorded In the last 10 days, have yo u been in contact with someone who was confirmed or suspected to have Coronavirus/COVID-19? No / Unsure 04/23/2022 9:26 AM CDT documented as of this encounter Plan of Treatment Upcoming Encounters Date Type Department Care Team (Late st Contact Info) Description 10/15/2024 10:15 AM CDT Appointment [facility] [place] [address] Spike Rodriguez MD [address] [place] [address] Monica Mckeon PTA 10/18/2024 1:00 PM CDT Office Visit [facility] Medical Group Multispecialty Care - [facility] [address] [facility], [address] [place] [address] Debbie Bustamante, LACEY 3 [facility] [address] [place] [address] 10/19/2024 9:00 AM CDT Appointment [facility] [place] [address] Spike Rodriguez MD [address] [place] [address] Rose Mary Centeno, PT 1 [place] [address] 10/21/2024 10:30 AM CDT Appointment [facility] [place] [address] Spike Rodriguez MD [address] [place] [phone] Rose Mary Centeno, PT 1 [place] [address] 10/27/2024 9:00 AM CDT Office Visit [facility] Medical Group Multispecialty Care - [facility] [address] [facility], [address] [place] [address] Tamika Navarrete MD 3 [place] [address] 11/03/2024 1:00 PM CDT Office Visit [facility] THREE [facility], [address] [place], [place] [id number] Bel Kamara APRN Three [facility] [address] [place] [address] documented as of this encounter Goals Goal Patient Goal Type Associated Problems Recent Progress Patient-Stated? Author Safety - demonstrates understanding of home safety measures General No Mackenzie Casiano RN documented as of this encounter Visit Diagnoses Not on filedocumented in this encounter Additional Health Concerns Infection Onset Date Last Indicated Resolved Time COVID-19 Rule Out 06/20/2023 06/20/2023 06/20/2023 12:24 PM PORTABLE TRACK LINE MARKER documented as of this encounter Care Teams Salesforce Developer Relationship Specialty Start Date End Date Lonnie Brown MD [address] [place] [address] [address] [place] [address] PCP - General FAMILY PRACTICE 06/19/21 Greyson Arevalo MD [address] [address] HEMATOLOGY/ONCOLOGY 09/17/21 documented as of this encounter
--- OUTSIDE RECORDS SUMMARY | 2024-10-14 11:19 | XMS_ITS | Clinical Summary ---
Author Organization [facility] Address [address] [place] [address] Care Team Providers Care Vinegar Maker Name Role Phone Lonnie Brown MD Primary Care Provider + Source Comments [facility],non-owned Affiliates and Associated Physician Practices is amultiple site organization consisting of ambulatory clinics and hospital sitesin [place], [place], [place] and [place]. This disclosure is being madepursuant to the Care Everywhere program and may not contain all information available regarding this patient. Last updated 18.[facility] Social History Tobacco Use Types Packs/Day Years Used Date Smoking Tobacco: Never Assessed Sex and Gender Information Value Date Recorded Sex Assigned at Not on file Gender Identity Not on file Sexual Orientation Not on file Plan of Treatment Health Maintenance Due Date Last Done Comments BONE DENSITY TESTING 1950 HEPATITIS C SCREENING 03/01/1966 DTAP/TDAP/TD VACCINES (1 - Tdap) 1967 PNEUMOCOCCAL VACCINE 50+ (1 of 1 - PCV) 1998 ZOSTER VACCINE (1 of 2) 1998 Respiratory Syncytial Virus (RSV) Vaccine Pt: or over 60 yrs (1 - 1-dose 75+ series) 2023 COVID-19 VACCINE ( - 2023-2 5 season) 2024 INFLUENZA VACCINE (#1) 2024 DEPRESSION SCREENING 07/28/2024 MEDICARE AWV CALENDAR YEAR 2024 HEPATITIS B VACCINE Aged Out No longe r eligible based on patient's age to complete this topic HIB VACCINE Aged Out No longer eligi ble based on patient's age to complete this topic HPV VACCINE Aged Out No longer eligi ble based on patient's age to complete this topic MENINGOCOCCAL (Group B) VACC INE SHARED DECISION-MAKING Aged Out No longer eligibl e based on patient's age to complete this topic MENINGOCOCCAL GROUPS A/C/Y/W VACCINE Aged Out No longer eligible b ased on patient's age to complete this topic Care Teams Vinegar Maker Relationship Specialty Start Date End Date Lonnie Brown MD [address] [place] [address] [address] [place] [address] PCP - General 09/17/18
--- OUTSIDE RECORDS SUMMARY | 2024-10-14 11:19 | XMS_ITS | Encounter Summary ---
Author Organization [facility] - [facility] Address [address] [place] [address] Care Team Providers Care Records Management Assistant Name Role Phone Lonnie Brown MD Primary Care Provider [phone]- [phone] Greyson Arevalo MD Unavailable [phone] Encounter Details Date Type Department Care Team (Late st Contact Info) Description 10/13/2024 Orders Only [facility] Medical Group Multispecialty Care - [facility] [address] [facility], [address] [place] [address] Debbie Bustamante, LACEY 3 [facility] [address] [place] [address] Social History Tobacco Use Types Packs/Day Years Used Date Smoking Tobacco: Never Passive Smoke Exposure: Yes Smokeless Tobacco: Never Comments:two weeks in [place] 60 yrs ago Alcohol Use Standard [...] or pharmacy? Patient declines to respond 11/06/2023 [facility] Utilities Answer Date Recorded In the past 12 months has e [employer], [employer], oil, or water [employer] threatened to shut off services in your [...] often do you attend chur ch or rastafarian services? Never 11/06/2023 Do you belong to any clubs o r organizations such as hindu groups, unions, fraternal or athletic groups, or [...] Recorded Patient Health Questionnaire-2 Score 0 04/27/2024 [facility] - Occupational Stress [...] any time in the past 12 m [facility], were you homeless or living in a longterm (including now)? 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 Answer Date of Assessment Author Status No 11/06/2023 3:17 PM CDT Krys Mosqueda, R N Active * Do you have serious difficulty walking or climbing stairs? Answer Date of Assessment Author Status Yes 11/06/2023 3:17 PM CDT Krys Mosqueda R N Active * Do you have difficulty dressing or bathing? Answer Date of Assessment Author Status Yes 11/06/2023 3:17 PM CDT Krys Mosqueda, R N Active * Because of a physical, mental, or emotional condition, do you have difficulty doing errands alone such as visiting a doctor's office or shopping? Answer Date of Assessment Author Status No 11/06/2023 3:17 PM CDT Krys Mosqueda, R N Active documented as of this encounter Mental Status * Because of a physical, mental, or emotional condition, do you have serious difficulty concentrating, remembering, or making decisions? Answer Entry Date Author Status No 11/06/2023 3:17 PM CDT Krys Mosqueda R N Active documented in this encounter Progress Notes * Debbie Bustamante APRN - 10/13/2024 8:48 AM CDT CBC, sed rate, crp ordered to ensure no concerns of infectious process given known soft tissue seroma. documented in this encounter Plan of Treatment Upcoming Encounters Date Type Department Care Team (Late st Contact Info) Description 10/15/2024 10:15 AM CDT Appointment [facility] [address] [place] [address] Spike Rodriguez MD [address] [place] [phone] Monica Mckeon PTA 10/18/2024 1:00 PM CDT Office Visit [facility] Medical Group Mult[facility]pecial[facility] - [facility] [address], [address] [place] [address] Debbie Bustamante, LACEY 3 [facility] [address] [place] [address] 10/19/2024 9:00 AM CDT Appointment [facility] [place] [address] Spike Rodriguez MD [address] [place] [phone] Rose Mary Centeno, PT 1 [place] [address] 10/21/2024 10:30 AM CDT Appointment [facility] [place] [address] Spike Rodriguez MD [address] [place] [phone] Rose Mary Centeno, PT 1 [place] [address] 10/27/2024 9:00 AM CDT Office Visit [facility] Medical Group Multispecialty Care - [facility] [address] [facility], [address] [place] [address] Tamika Navarrete MD 3 [facility] [place] [address] 11/03/2024 1:00 PM CDT Office Visit [facility], [address] [place] [address] Bel Kamara APRN Three [facility]. [address] [place], [place] [address] Scheduled Orders Name Type Priority Associated Diagnoses Orde r Schedule CBC W/DIFF AUTOMATED Lab Routine S/P lumbar fusion Abnormal findings on diagnostic imaging of other parts of musculoskeletal system Expected: 10/13/2024, Expires: 10/13/2025 C-REACTIVE PROTEIN Lab Routine S/P lumbar fusion Expected: 10/13/2024, Expires: 10/13/2025 SED RATE, ERYTHROCYTE (ESR) Lab Routine S/P lumbar fusion Expected: 10/13/2024, Expires: 10/13/2025 documented as of this encounter Goals Goal Patient Goal Type Associated Problems Recent Progress Patient-Stated? Author Safety - demonstrates understanding of home safety measures General No Mackenzie Casiano RN documented as of this encounter Visit Diagnoses Diagnosis S/P lumbar fusion- Primary Arthrodesis status Abnormal findings on diagnostic imaging of other parts of musculoskeletal system documented in this encounter Care Teams Records Management Assistant Relationship Specialty Start Date End Date Lonnie Brown MD [address] [facility] [address] [place] [address] PCP - General FAMILY PRACTICE 06/19/21 Greyson Arevalo MD [address] [address] HEMATOLOGY/ONCOLOGY 09/17/21 documented as of this encounter
--- OUTSIDE RECORDS SUMMARY | 2024-10-14 11:19 | XMS_ITS | Encounter Summary ---
Author Organization [facility] Address [address] [place] [address] Care Team Providers Care Wharf Operator Name Role Phone Lonnie Brown MD Primary Care Provider [phone] Greyson Arevalo MD Unavailable [phone] Reason for Visit * Reason Onset Date Comments Question 10/13/2024 Encounter Details Date Type Department Care Team (Late st Contact Info) Description 10/13/2024 Telephone [facility] Medical Group Multispecialty Care - [facility] 3 [facility], [address] [place] [address] Debbie Bustamante, LACEY 3 [facility] [address] [place] [address] Question Social History Tobacco Use Types Packs/Day Years [...] or pharmacy? Patient declines to respond 11/06/2023 [facility] Utilities Answer Date Recorded In the past 12 months has th e [employer], gas, oil, or water [employer] threatened to shut off services in your [...] often do you attend chur ch or advent services? Never 11/06/2023 Do you belong to any clubs o r organizations such as gnosticism groups, unions, fraternal or athletic groups, or [...] Recorded Patient Health Questionnaire-2 Score 0 04/27/2024 [facility] - Occupational Stress [...] any time in the past 12 m [facility], were you homeless or living in a half-way (including now)? 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 Patient V/U. * Genet Crook 10/13/2024 9:01 AM CDTSummary: pt r/c re: blood test. She has to see ET at 1 on Friday. She wants to know if 9 am blood draw on Friday when she comes forher PT. Will this be sufficient enough time to get the results by her appointment on Friday? Pleasecall to advise. Thank you documented in this encounter Plan of Treatment Upcoming Encounters Date Type Department Care Team (Late st Contact Info) Description 10/15/2024 10:15 AM CDT Appointment [facility] [place] [address] Spike Rodriguez MD [address] [place] [phone] Monica Mckeon PTA 10/18/2024 1:00 PM CDT Office Visit [facility] Medical Group Multispecialty Care - [facility] [address] [facility], [address] [place] [address] Debbie Bustamante APRN 3 [facility] [address] [place] [address] 10/19/2024 9:00 AM CDT Appointment [facility] [place] [address] Spike Rodriguez MD [address] [place] [phone] Rose Mary Centeno, PT 1 [place] [address] 10/21/2024 10:30 AM CDT Appointment [facility] [place]patient [place] [address] Spike Rodriguez MD [address] [place] [phone] Rose Mary Centeno, PT 1 [place] [address] 10/27/2024 9:00 AM CDT Office Visit [facility] Medical Group Multispecialty Care - [facility] 3 [facility], [address] [place] [address] Tamika Navarrete MD 3 [place] [address] 11/03/2024 1:00 PM CDT Office Visit [facility] THREE [facility], [address] [place] [address] Bel Kamara APRN Three [facility] [address] [place] [address] documented as of this encounter Goals Goal Patient Goal Type Associated Problems Recent Progress Patient-Stated? Author Safety - demonstrates understanding of home safety measures General No Mackenzie Casiano RN documented as of this encounter Visit Diagnoses Not on filedocumented in this encounter Care Teams Wharf Operator Relationship Specialty Start Date End Date Lonnie Brown MD [address] [facility] 100 [place] [address] PCP - General FAMILY PRACTICE 06/19/21 Greyson Arevalo MD [address] [phone] HEMATOLOGY/ONCOLOGY 09/17/21 documented as of this encounter
--- OUTSIDE RECORDS SUMMARY | 2024-10-14 11:19 | XMS_ITS | Encounter Summary ---
Author Organization [facility] Address [address] [place] [address] Care Team Providers Care Book Or Script Editor Name Role Phone Lonnie Brown MD Primary Care Provider [phone] Greyson Arevalo MD Unavailable [phone] Encounter Details Date Type Department Care Team (Late st Contact Info) Description 01/22/2023 KB Labshart Message Enc [facility] Medical Group - [facility] [address] [place], [place] [address] [employer], [facility] Provider Air Quality Message Social History Tobacco Use Types Packs/Day Years [...] 09/12/2021 How often do you attend chur ch or christian services? Never 09/12/2021 Active Member of Clubs [...] and heating? Not hard at all 09/12/2021 PHQ-2 Answer Date Recorded Patient Health Questionnaire-2 Score 0 10/29/2022 Hunger Vital Sign Answer Date Recorded Within [...] Sex Assigned at Female 09/02/2024 11:36 AM MINERAL ORE PROCESSING LABOURER Legal Sex Female 11:34 AM CDT Gender Identity Female 08/02/2021 3:56 PM MINERAL ORE PROCESSING LABOURER Sexual Orientation Not on file documented as of this encounter Plan of Treatment Upcoming Encounters Date Type Department Care Team (Late st Contact Info) Description 10/15/2024 10:15 AM CDT Appointment [facility] [place] [address] Spike Rodriguez MD [address] [place] [phone] Monica Mckeon PTA 10/18/2024 1:00 PM CDT Office Visit [facility] Medical Group Multispecialty Care - [facility] 3 [facility], [address] [place] [address] Debbie Bustamante, LACEY 3 [facility] [address] [place] [address] 10/19/2024 9:00 AM CDT Appointment [facility] [place] [address] Spike Rodriguez MD [address] [place] [phone] Rose Mary Centeno, PT 1 [place] [address] 10/21/2024 10:30 AM CDT Appointment [facility] [place] [address] Spike Rodriguez MD [address] [place] [phone] Rose Mary Centeno, PT 1 [place] [address] 10/27/2024 9:00 AM CDT Office Visit [facility] Medical Group Multispecialty Care - [facility] [address] [facility], [address] [place] [address] Tamika Navarrete MD 3 [place] [address] 11/03/2024 1:00 PM CDT Office Visit [facility] THREE [facility], [address] [place] [address] Bel Kamara, LACEY Three [facility]. [address] [place] [address] documented as of this encounter Goals Goal Patient Goal Type Associated Problems Recent Progress Patient-Stated? Author Safety - demonstrates understanding of home safety measures General No Mackenzie Casiano RN documented as of this encounter Visit Diagnoses Not on filedocumented in this encounter Additional Health Concerns Infection Onset Date Last Indicated Resolved Time COVID-19 Rule Out 06/20/2023 06/20/2023 06/20/2023 12:24 PM MINERAL ORE PROCESSING LABOURER documented as of this encounter Care Teams Book Or Script Editor Relationship Specialty Start Date End Date Lonnie Brown MD [address] [facility] 100 [place] [address] PCP - General FAMILY PRACTICE 06/19/21 Greyson Arevalo MD [address] [facility] [address] [place] [phone] HEMATOLOGY/ONCOLOGY 09/17/21 documented as of this encounter
--- OUTSIDE RECORDS SUMMARY | 2024-10-14 11:20 | XMS_ITS | Encounter Summary ---
Author Organization [facility] Address [address] [place] [address] Care Team Providers Care Building Carpenter Name Role Phone Lonnie Brown MD Primary Care Provider [phone] Encounter Details Date Type Department Care Team (Late st Contact Info) Description 03/24/2003 Outpatient Historical HIS MAMM VAN Lonnie Kemp SCREENING MAMM-MAILG NEOPL-OTHER (Primary Dx) Social History Tobacco Use Types Packs/Day Years Used Date Smoking Tobacco: Never Assessed Comments Unknown Sex and Gender Information Value Date Recorded Sex Assigned at Not on file Legal Sex Female 5:06 AM ENVIRONMENTAL SCIENTISTS Gender Identity Not on file Sexual Orientation Not on file documented as of this encounter Plan of Treatment Upcoming Encounters Date Type Department Care Team (Late st Contact Info) Description 04/14/2025 11:45 AM CDT Office Visit [facility] Oncology and [facility] - [place] [address] [facility] [address] [place] [address] Greyson Arevalo MD [address] [address] documented as of this encounter Visit Diagnoses Diagnosis Other screening mammogram- Primary documented in this encounter Care Teams Building Carpenter Relationship Specialty Start Date End Date Lonnie Brown MD [address] [address] PCP - General Family Practice 09/14/18 documented as of this encounter
--- OUTSIDE RECORDS SUMMARY | 2024-10-14 11:20 | XMS_ITS | Clinical Summary ---
Author Organization [facility] Address [address] [place] [address] Care Team Providers Care Attendant Child Activity Name Role Phone Lonnie Brown MD Primary Care Provider [phone]- [phone] Allergies Active Allergy Reactions Criticality Noted Date Comments Ragweed Other (See Comments) 06/19/2021 Medications vitamin B complex (B COMPLEX 1 ORAL) Take by mouth daily. Active multivitamin (DAILY-HILARY) tablet Take 1 Tablet by mouth daily. Active aspirin (ECOTRIN EC) 81 mg Tablet, Delayed Release (E.C.) Take 81 mg by mouth daily. Active buPROPion HCL (WELLBUTRIN XL) 300 mg Extended Release 24 hour tablet TAKE 1 TABLET BY MOUTH ONCE DAILY 0 Active calcium carbonate + vitamin D (CALTRATE+D) 600 mg(1,500mg) -400 unit Tablet Take by mouth. Pt said D is 2600 and Yusuf is 1600 dosage not found in system Active Symbicort 160-4.5 mcg/actuation HFA Aerosol Inhaler INHALE 2 PUFFS BY MOUTH TWICE DAILY 1 Active meclizine (ANTIVERT) 25 mg tablet TAKE 1 TABLET BY MOUTH THREE TIMES DAILY NEEDED FOR DIZZINESS 1 Active pantoprazole (PROTONIX) 40 mg Tablet, Delayed Release (E.C.) 1 Active ipratropium bromide (ATROVENT) 42 mcg (0.06 %) Delight, Non-Aerosol USE 2 SPRAYS IN EACH NOSTRIL UP TO 4 TIMES DAILY 1 Active ferrous sulfate 325 mg (65 mg iron) tablet Take 325 mg by mouth daily. Active albuterol sulfate 90 mcg/Actuation inhaler 0 Active Calcium Carbonate-Vit D3-Min 600 mg calcium- 400 unit Tablet Take by mouth. Act veronica HYDROcodone-lavonne taminophen (NORCO) 5-325 mg tablet TAKE 1 TO 2 TABLETS BY MOUTH EVERY 6 HOURS NEEDED 1 Active diazePAM (VALIUM) 5 mg tablet Take 5 mg by mouth every 6 hours as needed. 4 Active Lidocaine 4 % Adhesive Patch, Medicated Apply 2 Patches to skin as directed every 24 hours. 4 Active anastrozole (ARIMIDEX) 1 mg tabletIndicatio ns:Malignant neoplasm of upper-outer quadrant of right breast in female, estrogen receptor positive (CMS/HCC) take 1 tablet by mouth daily 90 Tablet 2 4 Active Active Problems Problem Noted Date Diagnosed Date Malignant gastrointestinal stromal tumor (GIST) of stomach 08/02/2021 History of external beam radiation therapy 05/07 Aromatase inhibitor use 05/07/2019 Malignant neoplasm of upper- outer quadrant of right breast in female, estrogen receptor positive 09/17/2018 Morbid obesity with body mass index of 40.0-49.9 09/17/2018 Resolved Problems Problem Noted Date Diagnosed Date Resolved Date Gastric mass 05/14/2021 08/02/2021 Encounters Date Type Department Care Team Description 10/04/2024 2:45 PM CDT Office Visit [facility] [place] [address] [place] [address] Greyson Arevalo MD Malignant neoplasm of upper-outer quadrant of right breast in female, estrogen receptor positive (CMS/HCC) (Primary Dx); Visit for screening mammogram; Osteopenia of multiple sites 09/29/2024 Orders Only [facility] [place] [address] [place] [address] Greyson Arevalo MD 09/27/2024 Orders Only [facility] [place] [address] [place] [address] Greyson Arevalo MD 09/15/2024 External Device Data STL ABSTRACTION Provider, Abstract 09/15/2024 External Device Data ST[facility] ABSTRACTION Provider, Abstract 08/19/2024 External Device Data [facility] ABSTRACTION Provider, Abstract from Last 3 Months Social History Tobacco Use Types Packs/Day Years Used Date Smoking Tobacco: Never Smokeless Tobacco: Never Tobacco Cessation:Counseling Given: Not Answered Alcohol Use Standard Drinks/Week Comments Yes 0 (1 standard drink = 0.6 oz pur e alcohol) Comments No Sex and Gender Information Value Date Recorded Sex Assigned at Not on file Legal Sex Female 5:06 AM BOBCAT OPERATOR Gender Identity Not on file Sexual Orientation Not on file Last Filed Vital Signs Vital Sign Reading Time Taken Comments Blood Pressure 146/86 10/04/2024 3:04 PM CDT Pulse 69 10/04/2024 3:02 PM CDT Temperature 36.1 C (97 F) 10/04/2024 3:02 PM CDT Respiratory Rate 15 10/04/2024 3:02 PM CDT Oxygen Saturation 94% 10/04/2024 3:02 PM CDT Inhaled Oxygen Concentration - - Weight 94.9 kg (209 lb 3.2 oz) 10/04/2024 3:02 P M CDT Height 177.8 cm (5' 10 ) 02/12/2022 2:51 PM CDT Body Mass Index 30.02 02/12/2022 2:51 PM CDT Plan of Treatment Upcoming Encounters Date Type Department Care Team (Late st Contact Info) Description 04/14/2025 11:45 AM CDT [facility] Visit [facility] [place] [address] [facility] [address] [place] [address] Greyson Arevalo MD [address] [facility] [address] [place] [address] Health Maintenance Due Date Last Done Comments DTAP/TDAP/TD VACCINES (1 - Tdap) 1967 ZOSTER VACCINE (1 of 2) 1998 OSTEOPOROSIS SCREENING 2013 RSV VACCINE (60+ or ) (1 - 1-dose 75+ series) 2023 INFLUENZA VACCINE (#1) 2024 COLORECTAL SCREENING Discontinued 05/11/2021 Colorectal Cancer Screening Discontinued PNEUMOCOCCAL VACCINE 50+ YEARS Completed 11/07/2023 FIT-DNA Q 3 years Discontinued FIT/FOBT Q 1 year Discontinued Flex Sig/CT Colonography Q 5 years Discontinued Procedures Procedure Name Priority Date/Time Associated Diagnosis Comments CBC WITH DIFFERENTIAL Routine 09/24/2024 10:49 AM BOBCAT OPERATOR COMPREHENSIVE METABOLIC PANEL Routine 09/24/2024 10:07 AM BOBCAT OPERATOR COLONOSCOPY REPORT Routine 05/11/2021 from Last 3 Months or Most Recently Relevant to Health Maintenance Results * CBC WITH DIFFERENTIAL (09/24/2024 10:49 AM BOBCAT OPERATOR) Blood Greyson Arevalo MD HEMATOLOGY ORDERABLES Final Res ult * COMPREHENSIVE METABOLIC PANEL (09/24/2024 10:07 AM BOBCAT OPERATOR) Blood Greyson Arevalo MD CHEMISTRY ORDERABLES Final Resu lt * COLONOSCOPY REPORT (05/11/2021) Abstract Provider GI PROCEDURE ORDERABLES Final Result from Last 3 Months or Most Recently Relevant to Health Maintenance Insurance [facility] [id number] [facility] [id number] Care Teams Attendant Child Activity Relationship Specialty Start Date End Date Lonnie Brown MD 1 [facility] [address] [place] [address] PCP - General Family Practice 09/14/18
--- OUTSIDE RECORDS SUMMARY | 2024-10-14 11:20 | XMS_ITS | Encounter Summary ---
Author Organization [facility] Address [facility] [place] [address] Care Team Providers Care Senior Firewall Engineer Name Role Phone Lonnie Brown MD Primary Care Provider [phone]- [phone] Greyson Arevalo MD Unavailable [phone] Encounter Details Date Type Department Care Team (Latest Contact Info) Description 06/25/2021 MyChart Message Enc [facility] - [facility] [address] [facility], [address] [place] [address] Lissett Womack MD 1 [place] [address] Testing before next appt Social History Tobacco Use Types Packs/Day Years Used Date Smoking Tobacco: Former Cigarettes Smokeless Tobacco: Never 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 No / Unsure 06/19/2021 9:17 AM INTERNAL CONTROLS CONSULTANT documented as of this encounter Plan of Treatment Upcoming Encounters Date Type Department Care Team (Late st Contact Info) Description 10/15/2024 10:15 AM CDT Appointment [facility] [place] [address] [place] [address] Spike Rodriguez MD [address] [place] [phone] Monica Mckeon PTA 10/18/2024 1:00 PM CDT Office Visit [facility] - [facility] [address] [facility], [address] [place] [address] Debbie Bustamante, LACEY 3 [facility] [address] [place] [address] 10/19/2024 9:00 AM CDT Appointment [facility] [place] [address] Spike Rodriguez MD [address] [place] [phone] Rose Mary Centeno, PT 1 [place] [address] 10/21/2024 10:30 AM CDT Appointment [facility] [place] [address] Spike Rodriguez MD [address] [place] [phone] Rose Mary Centeno, PT [address] [place] [address] 10/27/2024 9:00 AM CDT Office Visit [facility] - [facility] [address] [facility], [address] [place] [address] Tamika Navarrete MD 3 [facility] [place] [address] 11/03/2024 1:00 PM CDT Office Visit [facility] THREE [facility], [address] [place] [address] Bel Kamara, LACEY Three [facility]. [address] [place] [address] documented as of this encounter Visit Diagnoses Not on filedocumented in this encounter Additional Health Concerns Infection Onset Date Last Indicated Resolved Time COVID-19 Rule Out 06/20/2023 06/20/2023 06/20/2023 12:24 PM INTERNAL CONTROLS CONSULTANT documented as of this encounter Care Teams Senior Firewall Engineer Relationship Specialty Start Date End Date Lonnie Brown MD 1 [facility] [address] [place] [address] PCP - General FAMILY PRACTICE 06/19/21 Greyson Arevalo MD [facility] [address] [place] [address] HEMATOLOGY/ONCOLOGY 09/17/21 documented as of this encounter
--- OUTSIDE RECORDS SUMMARY | 2024-10-14 11:20 | XMS_ITS | Continuity of Care Document ---
Author Organization [facility] Address [address] [place] [address] [place] [address] Phone Care Team Providers Care Roll Sheeting Cutter Name Role Phone Jesse Hebert Unavailable Unavailable Advance Directives Directive Yes / No Effective Date File Name No Information Encounters Encounter Description Practice Location Reason(s) For Visit Diagnoses Date Provider Providers Copied on Encounter [facility], [address] [place] [address] [address], [place], [place], [id number], [place] tel:[phone] [facility] No Information Jun-0 8-200 4 Doisy Edward. [address] , [address], [place], [address], [place]. tel:[phone] Family History Family Member Type Diagnosis Age At Onset No Information Payers Payer name Insurance type Covered green party ID Authoriza tion(s) No Information Social [...]
[2024-10-14 12:16] LABS: Free T4 Free Thyroxine 1.04 ng/dL (0.78-2.19)
== END 2024-10-14 10:31 | disposition home or self-care (01) ==
LOC: ANHLAB 10:31
PROVIDERS: Visit Provider Internal Medicine
DX: E04.2 Nontoxic multinodular goiter (principal); E78.2 Mixed hyperlipidemia; E66.01 Morbid (severe) obesity due to excess calories
CPT/HCPCS: 36415; 84439; 84443

== ENCOUNTER 2024-10-16 10:36 | Outpatient (CLI) | payer MEDICARE, SELFPAY ==
--- NOTE | ~2024-10-16 | US_ITS ---
US thyroid DATE: 10/16/2024 10:58 INDICATION: Multinodular goiter TECHNIQUE: Real-time and color flow imaging of the thyroid gland COMPARISON: 10/10/2023 thyroid ultrasound FINDINGS: Right lobe: 5.4 x 1.9 x 1.9 cm Heterogeneous echotexture 1.0 x 1.1 x 1.0 cm inferior right circumscribed isoechoic mass (TR 3), which previously measured 1.0 x 1.0 x 1.3 cm, relatively stable. 0.8 x 0.6 x 0.7 cm circumscribed hypoechoic posterior lower pole right thyroid lesion (TR 4); this pr eviously measured 0.8 x 0.4 x 0.5 cm, relatively stable Isthmus: 0.5 cm 1.5 x 0.6 x 1.3 cm hypoechoic circumscribed solid lesion (TR 4); mildly decreased in size from 1.6 x 0.8 x 1.7 cm on 10/10/2023. Left lobe 4.7 x 1.5 x 1.3 cm Heterogeneous echotexture 0.7 x 0.7 x 0.7 cm hypoechoic lower pole circumscribed solid lesion (TR 4), diminished from 0.8 x 0.7 x 0.8 cm on 10/10/2023. IMPRESSION: Relatively stable examination since 10/10/2023 The 1.5 cm thyroid isthmus TR 4 lesion meets the 1.5 cm size criterion for fine needle aspiration but appears slightly smaller since 10/10/2023, so I would recommend one-year thyroid ultrasound follow-up . Reviewed, dictated and finalized at [facility]. Reviewed, dictated and finalized at [facility]. IMPRESSION: Relatively stable examination since 10/10/2023 The 1.5 cm thyroid isthmus TR 4 lesion meets the 1.5 cm size criterion for fine needle aspiration but appears slightly smaller since 10/10/2023, so I would rec ommend one-year thyroid ultrasound follow-up.
== END 2024-10-16 10:37 | disposition home or self-care (01) ==
LOC: MICIMG 10:37
PROVIDERS: PCP Nurse Practitioner Family; Visit Provider Nurse Practitioner Family
DX: E04.2 Nontoxic multinodular goiter (principal)
CPT/HCPCS: 76536

== ENCOUNTER 2025-02-16 08:41 | Outpatient (CLI) | payer MEDICARE, SELFPAY ==
--- NOTE | ~2025-02-16 | US_ITS ---
US arterial ankle brachial ind INDICATION: Right breast and stomach cancer TECHNIQUE: Segmental pressures and plethysmographic and Doppler waveforms of the brachial and lower e xtremity arteries were obtained. COMPARISON: None. FINDINGS: Right and left brachial artery pressures of 143 mm Hg and 144 mm Hg, respectively, are concordant (no rmal difference <= 30 mmHg). The right ankle-brachial index (RACHELLE) is 1.09 (normal >= 0.9-1.0). The right great toe-brachial index (TBI) is 0.42 (normal >= 0.60). The left RACHELLE is 1.1. The left TBI is 0.6. IMPRESSION: 1. Normal ankle-brachial indices. 2: Decreased right toe brachial index consistent with mild peripheral arterial disease. Reviewed, dictated and finalized at location A.
--- OUTSIDE RECORDS SUMMARY | 2025-02-16 08:47 | XMS_ITS | Encounter Summary ---
Author Organization [facility] Address [facility] [place] [address] Care Team Providers Care Pipe Fitter Welding Name Role Phone Lonnie Brown MD Primary Care Provider [phone]- [phone] Greyson Arevalo MD Unavailable [phone] Encounter Details Date Type Department Care Team (Late st Contact Info) Description 04/24/2022 MyChart Message Enc [facility] Multispecialty Care - [facility] 3 [facility], [address] [place] [address] Debbie Bustamante, LACEY 3 [facility] [address] [place], [place] [id number] [place] Social History Tobacco Use Types Packs/Day [...] How often do you attend chur or protestant services? Never 09/12/2021 Active Member of Clubs [...] Sex Assigned at Female 09/02/2024 11:36 AM NEW PATIENT ESCORT Legal Sex Female 11:34 AM CDT Gender Identity Female 08/02/2021 3:56 PM NEW PATIENT ESCORT Sexual Orientation Not on file COVID-19 Exposure Response Date Recorded In the last 10 days, have yo u been in contact with someone who was confirmed or suspected to have Coronavirus/COVID-19? No / Unsure 04/23/2022 9:26 AM CDT documented as of this encounter Plan of Treatment Upcoming Encounters Date Type Department Care Team (Late st Contact Info) Description 04/28/2025 10:20 AM CDT Office Visit [facility] Mult[facility]pecialty Care - [facility] [address] [facility], [address] [place] [address] Tamika Navarrete MD 3 [place] [address] 05/04/2025 1:00 PM CDT Office Visit [facility] THREE [facility], [address] [place], [place] [address] Bety Mckeon MD Three [facility]. [address] [place] [address] documented as of this encounter Goals Goal Patient Goal Type Associated Problems Recent Progress Patient-Stated? Author Safety - demonstrates understanding of home safety measures General No Mackenzie Casiano RN documented as of this encounter Visit Diagnoses Not on filedocumented in this encounter Additional Health Concerns Infection Onset Date Last Indicated Resolved Time COVID-19 Rule Out 06/20/2023 06/20/2023 06/20/2023 12:24 PM NEW PATIENT ESCORT documented as of this encounter Care Teams Pipe Fitter Welding Relationship Specialty Start Date End Date Lonnie Brown MD [address] [place] [address] [address] [place] [address] PCP - General FAMILY PRACTICE 06/19/21 Greyson Arevalo MD [address] [address] HEMATOLOGY/ONCOLOGY 09/17/21 documented as of this encounter
--- OUTSIDE RECORDS SUMMARY | 2025-02-16 08:47 | XMS_ITS | Clinical Summary ---
Author Organization [facility] Address [address] [place] [address] Care Team Providers Care Color Corrector Name Role Phone Lonnie Brown MD Primary Care Provider [phone] Allergies Active Allergy Reactions Criticality Noted Date [...] ipratropium bromide (ATROVENT) 42 mcg (0.06 %) [place], Non-Aerosol USE 2 SPRAYS IN EACH NOSTRIL [...] breast in female, estrogen receptor positive (CMS/HCC) TAKE 1 TABLET BY MOUTH DAILY 90 Tablet 2 5 Active Active Problems Problem Noted Date Diagnosed [...] Encounters Date Type Department Care Team Description 02/15/2025 External Device Data STL ABSTRACTION Provider, Abstract 02/15/2025 External Device Data STL ABSTRACTION Provider, Abstract 02/15/2025 External Device Data STL ABSTRACTION Provider, Abstract 02/09/2025 External Device Data STL ABSTRACTION Provider, Abstract 02/09/2025 External Device Data STL ABSTRACTION Provider, Abstract 01/18/2025 External Device Data STL ABSTRACTION Provider, Abstract 12/28/2024 External Device Data STL ABSTRACTION Provider, Abstract 12/16/2024 External Device Data STL ABSTRACTION Provider, Abstract 12/16/2024 External Device Data STL ABSTRACTION Provider, Abstract 12/15/2024 External Device Data STL ABSTRACTION Provider, Abstract [...] on file Legal Sex Female 5:06 AM BENCH JEWELER Gender Identity Not on file Sexual Orientation [...] P M CDT Height 177.8 cm (5' 10) 02/12/2022 2:51 PM CDT Body Mass Index 30.02 02/12/2022 2:51 PM CDT Plan of Treatment Upcoming Encounters Date Type Department Care Team (Late st Contact Info) Description 04/14/2025 11:45 AM CDT Office Visit [facility] [place] [address] [place] [address] [facility] [address] [place] [address] Greyson Arevalo MD [address] [facility] [address] [place] [address] Health Maintenance Due Date Last Done Comments DTAP/TDAP/TD VACCINES (1 - Tdap) 1967 ZOSTER VACCINE (1 of 2) 1998 OSTEOPOROSIS SCREENING 2013 RSV VACCINE (60+ or ) (1 - 1-dose 75+ series) 2023 INFLUENZA VACCINE (#1) 2025 COLORECTAL SCREENING Discontinued 05/11/2021 Colorectal Cancer Screening Discontinued PNEUMOCOCCAL VACCINE 50+ YEARS Completed 11/07/2023 FIT-DNA Q 3 years Discontinued FIT/FOBT Q 1 year Discontinued Flex Sig/CT Colonography Q 5 years Discontinued Procedures Procedure Name Priority Date/Time Associated Diagnosis Comments COLONOSCOPY REPORT Routine 05/11/2021 from Last 3 Months or Most Recently Relevant to Health Maintenance Results * COLONOSCOPY REPORT (05/11/2021) us Abstract Provider GI PROCEDURE ORDERABLES Final Result from Last 3 Months or Most Recently Relevant to Health Maintenance Insurance Care Teams Color Corrector Relationship Specialty Start Date End Date Lonnie Brown MD PCP - General Family Practice 09/14/18
--- OUTSIDE RECORDS SUMMARY | 2025-02-16 08:47 | XMS_ITS | Encounter Summary ---
Author Organization [facility] Address [address] [place] [address] Care Team Providers Care Sawmill Or Timber Yard Worker Name Role Phone Lonnie Brown MD Primary Care Provider [phone] Greyson Arevalo MD Unavailable Encounter Details Date Type Department Care Team (Late st Contact Info) Description 01/22/2023 Modalityhart Message Enc [facility] - [facility] [address] [place], [place] [address] [facility] Provider Air Quality Message Social History Tobacco [...] often do you attend chur ch or anabaptism services? Never 09/12/2021 Active Member of Clubs [...] Sex Assigned at Female 09/02/2024 11:36 AM CASER IN Legal Sex Female 11:34 AM CDT Gender Identity Female 08/02/2021 3:56 PM CASER IN Sexual Orientation Not on file documented as of this encounter Plan of Treatment Upcoming Encounters Date Type Department Care Team (Late st Contact Info) Description 04/28/2025 10:20 AM CDT Office Visit [facility] Mult[facility]pecialty Care - [facility] 3 [facility], [address] [place] [address] Tamika Navarrete MD 3 [facility] [place] [address] 05/04/2025 1:00 PM CDT Office Visit [facility] THREE [facility], [address] [place] [address] Bety Mckeon MD Three [facility]. [address] [place] [address] documented as of this encounter Goals Goal Patient Goal Type Associated Problems Recent Progress Patient-Stated? Author Safety - demonstrates understanding of home safety measures General No Mackenzie Casiano RN documented as of this encounter Visit Diagnoses Not on filedocumented in this encounter Additional Health Concerns Infection Onset Date Last Indicated Resolved Time COVID-19 Rule Out 06/20/2023 06/20/2023 06/20/2023 12:24 PM CASER IN documented as of this encounter Care Teams Sawmill Or Timber Yard Worker Relationship Specialty Start Date End Date Lonnie Brown MD [address] [facility] [address] [place] [address] PCP - General FAMILY PRACTICE 06/19/21 Greyson Arevalo MD [address] [facility] [address] [place] [address] HEMATOLOGY/ONCOLOGY 09/17/21 documented as of this encounter
--- OUTSIDE RECORDS SUMMARY | 2025-02-16 08:47 | XMS_ITS | Clinical Summary ---
Author Organization [facility] Address [address] [place] [address] Care Team Providers Care Flaker Operator Name Role Phone Lonnie Brown MD Primary Care Provider + Source Comments [facility],non-owned Affiliates and Associated Physician Practices is amultiple site organization consisting of ambulatory clinics and hospital sitesin [place], [place], [place] and [place]. This disclosure is being madepursuant to the Care Everywhere program and may not contain all information available regarding this patient. Last updated 18.[facility] Social History Tobacco Use Types Packs/Day Years Used Date Smoking Tobacco: Never Assessed Comments Unknown Sex and Gender Information Value Date Recorded Sex Assigned at Not on file Legal Sex Female 1:58 PM EMPLOYEE'S REPRESENTATIVE Gender Identity Not on file Sexual Orientation [...] VACCINE ( - 2023-2 5 season) 2024 DEPRESSION SCREENING 07/28/2024 INFLUENZA VACCINE (#1) 2025 HEPATITIS B VACCINE Aged Out No longe [...] on patient's age to complete this topic Insurance [facility] MANAGED MEDICARE ADV Care Teams Flaker Operator Relationship Specialty Start Date End Date Lonnie Brown MD [address] [facility] [address] [place] [address] [facility] - General 09/17/18
--- OUTSIDE RECORDS SUMMARY | 2025-02-16 08:47 | XMS_ITS | Continuity of Care Document ---
Author Organization [facility] Address [address] [place] [address] [place] [address] Phone Care Team Providers Care Open Die Inspector Name Role Phone Jesse Hebert Unavailable Unavailable Advance Directives Directive Yes / No Effective Date File Name No Information Encounters Encounter Description Practice Location Reason(s) For Visit Diagnoses Date Provider Providers Copied on Encounter [facility]ly [facility], [id number] [place] [address] [address], [place], [place], [id number], [place] tel:[phone] [facility] No Information Jun-0 8-200 4 Doisy Edward. [address] , [address], [place], [address], [place]. tel:[phone] Family History Family Member Type Diagnosis Age [...]
--- OUTSIDE RECORDS SUMMARY | 2025-02-16 08:47 | XMS_ITS | Clinical Summary ---
Author Organization [facility] Address [address] [place] [address] Care Team Providers Care Tabular Typist Name Role Phone Lonnie Brown MD Primary Care Provider +1- [phone] Greyson Arevalo MD Unavailable [phone] Allergies Active Allergy Reactions Criticality Noted [...] continuous prn. Left AFO 1 Device 07/15/20 23 Active Misc. Devices MiscIndications: Lumbar spine instability [...] mouth daily. 30 tablet 11/07/19 24 Active aspirin EC (ECOTRIN) 81 MG tabletIndication s:Anticoagulant Therapy Take 1 tablet (81 mg total) by mouth daily. 30 tablet 11/20/19 24 Active lidocaine 4 % patchIndications :Pain Place 2 patches onto the skin daily. Remove & Discard patch within 12 hours or as directed by MD 30 patch 11/19/19 24 Active DONEPEZIL HYDROCHLORIDE 5 MG TABLET DISPERSIBLEIndic ations:Memory loss Take 1 tablet by mouth daily. 30 tablet 11 10/28/19 25 026 Active atorvastatin (LIPITOR) 40 MG tablet TAKE 1 TABLET BY MOUTH NIGHTLY AT BEDTIME 90 tablet 1 01/18/20 25 Active Active Problems Problem Noted Date Diagnosed Date Sacroiliitis 11/17/2023 Trochanteric bursitis of both hips 11/17/2023 Physical deconditioning 11/07/2023 S/P lumbar fusion 11/03/2023 S/P lumbar laminectomy 11/03/2023 Spondylolisthesis of lumbar region 02/10/2023 Multinodular goiter 10/29/2022 Ulnar neuropathy of right upper extremity 2022 Numbness and tingling in right hand 12/27/2021 Myelomalacia (CMS/HCC HHS/HCC) 09/14/2021 S/P cervical spinal fusion 09/13/2021 Myelopathy ([facility]) 09/12/2021 Gastrointestinal stromal tumor (GIST) ([facility]) 06/27/2021 Overview (09/13/2021): Unifocal disease status post laparoscopic partial gastrectomy Arthritis Asthma ([facility]) Stroke ([facility]) Overview (09/13/2021): 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 [place] [address] Rose Mary Centeno, PT Called To Cancel Office Appt. 11/19/2024 8:33 AM CDT - 11/19/2024 11:59 PM CDT Hospital Encounter [facility] [place] [address] Spike Rodriguez MD George, Molly S, WOOD LATHER Discharge Disposition: Home or Self Care (Routine Discharge) 11/19/2024 Travel from Last 3 Months Immunizations Immunization Administration Dates Next Due Pneumococcal (Prevnar 20) 11/07/2023 Family History Medical History Relation Comments Cancer Cousin breast- 3 cousin s Sleep Apnea Cousin skeletal problems Daughter COPD Father Heart Disease Father Cancer Maternal Grandfather colon Cancer Maternal Grandmother throat Cancer Mother leukemia Diabetes Mother Heart Disease Mother Heart Disease Paternal Grandfather Heart Disease Paternal Grandmother [place] Paternal Grandmother Relation Status Comments Cousin Daughter Alive Father Maternal Grandfather Maternal Grandmother Mother Paternal Grandfather (Age 34) Paternal Grandmother Social History Tobacco Use Types Packs/Day Years Used Date Smoking Tobacco: Never Passive Smoke Exposure: Yes Smokeless Tobacco: Never Tobacco Cessation:Counseling Given: Yes Comments:two weeks in college 60 yrs ago [...] or pharmacy? Patient declines to respond 11/06/2023 [facility] Utilities Answer Date Recorded In the past 12 months has e electric, gas, oil, or water company threatened to shut off services in your [...] often do you attend chur ch or zoroastrianism services? Never 11/06/2023 Do you belong to any clubs o r organizations such as anabaptism groups, unions, fraternal or athletic groups, or [...] Date Recorded Patient Health Questionnaire-2 Score 0 10/27/2024 [facility] [place] [facility] Occupat ional [facility] - Occupational Stress Questionnaire Answer Date Recorded [...] any time in the past 12 m [facility], were you homeless or living in a nursing home (including now)? 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 Not on file Not on file Not on f ile Last Filed Vital Signs Vital Sign Reading Time Taken Comments Blood Pressure 134/68 11/03/2024 12:36 PM CDT Pulse 65 11/03/2024 12:36 PM CDT Temperature 36.2 C (97.2 F) 10/18/2024 12:54 PM CDT Respiratory Rate 18 05/27/2024 1:17 PM CDT Oxygen Saturation 100% 11/03/2024 12:36 PM CDT Inhaled Oxygen Concentration - - Weight 94.8 kg (209 lb) 11/03/2024 12:36 PM CDT Height 172.7 cm (5' 8) 11/03/2024 12:36 PM CDT Body Mass Index 31.78 11/03/2024 12:36 PM CDT Plan of Treatment Upcoming Encounters Date Type Department Care Team (Late st Contact Info) Description 04/28/2025 10:20 AM CDT Office Visit [facility] Multispecialty Care - [facility] [address] [facility], [address] [place] [address] Tamika Navarrete MD [address] [place] [address] 05/04/2025 1:00 PM CDT Office Visit [facility] [place], [place] [address] Bety Mckeon MD Three [facility]. [address] [place] [address] Health Maintenance Due Date Last Done Comments Hepatitis C 1966 DTaP, Tdap and Td Vaccines (1 - Tdap) 1967 Zoster Vaccines (1 of 2) 1998 Annual Medicare Wellness Visit 2013 Dexa Scan (General) 2013 RSV Immunization or 60+ Years (1 - 1-dose 75+ series) 2023 COVID-19 Vaccine ( season) 2024 07/10/2023, 06/05/2022, 01/15/2022, Additional history exists Pneumococcal Vaccine: 50+ Years Completed 11/07/2023 PHQ-2 (Physician [place]) Completed 10/27/2024 Meningococcal B Vaccine Aged Out No l [...] Casiano RN Medical Devices Implanted Type Area Irrigation Equipment Mechanic Device Identifier Shelf Expiration Date Model / Serial / Lot Implant Magnifuse Bone Graft 1 X 10cm - [id number] Implanted:Qt y: 1 on 11/03/2023 by Octavio Lucas MD at [facility] Bone N/A: Spine Lumbar [employer] [id number] 09/23/2025 [id number] / [id number] / . Filler Bone 5cc 12.5cc Calcium Sulfate Stimulan Rapid Cure - [id number] Implanted:Qt y: 1 on 11/03/2023 by Octavio Lucas MD at [facility] Bone N/A: Spine Lumbar [employer] [id number] 08/27/2025 [id number] / / [id number] 4.75 X 90 Mm Prince Implanted:Qt y: 1 on 11/03/2023 by Octavio Lucas MD at [facility] Prince N/A: Spine Lumbar [employer] . [id number] / / . 4.75 X 100 Mm Prince Implanted:Qt y: 1 on 11/03/2023 by Octavio Lucas MD at [facility] Prince N/A: Spine Lumbar [employer] . [id number] / / . 6.5 X 45 Mm Screws Implanted:Qt y: 4 on 11/03/2023 by Octavio Lucas MD at [facility] Screw N/A: Spine Lumbar [employer] . [id number] / / . 7.5 X 40 Mm Screws Implanted:Qt y: 1 on 11/03/2023 by Octavio Lucas MD at [facility] Screw N/A: Spine Lumbar [employer] . [id number] / / . 7.5 X 45 Mm Screws Implanted:Qt y: 2 on 11/03/2023 by Octavio Lucas MD at [facility] Screw N/A: Spine Lumbar [employer] . [id number] / / . 6.5 X 40 Mm Screws Implanted:Qt y: 1 on 11/03/2023 by Octavio Lucas MD at [facility] Screw N/A: Spine Lumbar [employer] . [id number] / / . Bio 4 Viable Bone Matrix- Spine Implanted:Qt y: 1 on 09/12/2021 by Octavio Lucas MD at [facility] N/A: Spine Cervical [employer] SP[employer] - DIV ERMA PRAVEENA 12/29/2023 [id number] / / [id number] Description:C5-C7 Ector Interbody System Cervical Interbody [id number] Implanted:Qt y: 2 on 09/12/2021 by Octavio Lucas MD at [facility] N/A: Spine Cervical [id number] 01/06/2026 [id number] / / [id number] Plate Implanted:Qt y: 1 on 09/12/2021 by Octavio Lucas MD at [facility] N/A: Spine Cervical [id number] / / 4.0 Screws Implanted:Qt y: 6 on 09/12/2021 by Octavio Lucas MD at [facility] N/A: Spine Cervical [id number] / / Solera Set Screws Implanted:Qt y: 8 on 11/03/2023 by Octavio Lucas MD at [facility] N/A: Spine Lumbar [employer] . [id number] / / . Explanted Type Area Irrigation Equipment Mechanic Device Identifier Shelf Expiration Date Model / Serial / Lot Distration Pin 12mm - [id number] Explanted:Qty: 2 on 09/12/2021 by Octavio Lucas MD at [facility] Pin N/A: Spine Cervical [employer] [id number] / / Insurance [facility] Advance Directives * Full Code (Latest Code [...] 6:22 PM 09/14/2021 1:21 PM Care Teams Tabular Typist Relationship Specialty Start Date End Date Lonnie Brown MD [address] [address] PCP - General FAMILY PRACTICE 06/19/21 Greyson Arevalo MD [address] [id number] HEMATOLOGY/ONCOLOGY 09/17/21
--- OUTSIDE RECORDS SUMMARY | 2025-02-16 08:47 | XMS_ITS | Encounter Summary ---
Author Organization [facility] Address [address] [place] [address] Care Team Providers Care Financial Intern Name Role Phone Lonnie Brown MD Primary Care Provider +1- [phone] Encounter Details Date Type Department Care Team (Late st Contact Info) Description 02/15/2025 External Device Data [facility] ABSTRACTION Provider, Abstract NO ADDRESS ON FILE Social History Tobacco Use Types Packs/Day Years Used Date Smoking Tobacco: Never Smokeless Tobacco: Never Alcohol Use Standard Drinks/Week Comments Yes 0 (1 standard drink = 0.6 oz pur e alcohol) Comments No Sex and Gender Information Value Date Recorded Sex Assigned at Not on file Legal Sex Female 5:06 AM WARP TRUCKER Gender Identity Not on file Sexual Orientation Not on file documented as of this encounter Plan of Treatment Upcoming Encounters Date Type Department Care Team (Late st Contact Info) Description 04/14/2025 11:45 AM CDT Office Visit [facility] Oncology and Hematology - [place] [address] [facility] [address] [place] [address] Greyson Arevalo MD [address] [facility] [address] [place] [address] documented as of this encounter Visit Diagnoses Not on filedocumented in this encounter Care Teams Financial Intern Relationship Specialty Start Date End Date Lonnie Brown MD PCP - General Family Practice 09/14/18 documented as of this encounter
--- OUTSIDE RECORDS SUMMARY | 2025-02-16 08:47 | XMS_ITS | Encounter Summary ---
Author Organization [facility] Address [address] [place] [address] Care Team Providers Care Design Engineer Products Name Role Phone Lonnie Brown MD Primary Care Provider +1- [phone] Encounter Details Date Type Department Care Team [...] on file Legal Sex Female 5:06 AM SUPERVISOR ELECTRIC Gender Identity Not on file Sexual Orientation Not on file documented as of this encounter Plan of Treatment Upcoming Encounters Date Type Department Care Team (Late st Contact Info) Description 04/14/2025 11:45 AM CDT Office Visit [facility] Oncology and Hematology - [place] [address] [facility] [address] [place] [address] Greyson Arevalo MD [address] [facility] [address] [place] [address] documented as of this encounter Visit Diagnoses Not on filedocumented in this encounter Care Teams Design Engineer Products Relationship Specialty Start Date End Date Lonnie Brown MD PCP - General Family Practice 09/14/18 documented as of this encounter
--- OUTSIDE RECORDS SUMMARY | 2025-02-16 08:47 | XMS_ITS | Encounter Summary ---
Author Organization [facility] Address [address] [place] [address] Care Team Providers Care Core Inserter Name Role Phone Lonnie Brown MD Primary Care Provider +1- [phone] Encounter Details Date Type Department Care Team (Late st Contact Info) Description 11/19/2018 Chart Note [facility] Radiation Therapy [address] [place] [address] [place] [address] [place] [address] Social History Tobacco Use Types Packs/Day Years Used Date Smoking Tobacco: Never Smokeless Tobacco: Never Alcohol Use Standard Drinks/Week Comments Yes 0 (1 standard drink = 0.6 oz pur e alcohol) Comments No Sex and Gender Information Value Date Recorded Sex Assigned at Not on file Legal Sex Female 5:06 AM DIGITAL TECHNICIAN Gender Identity Not on file Sexual Orientation Not on file documented as of this encounter Plan of Treatment Upcoming Encounters Date Type Department Care Team (Late st Contact Info) Description 04/14/2025 11:45 AM CDT Office Visit [facility] Oncology and Hematology - [place] [address] [place] [address] Greyson Arevalo MD [address] [facility] [address] [place] [address] documented as of this encounter Visit Diagnoses Not on filedocumented in this encounter Care Teams Core Inserter Relationship Specialty Start Date End Date Lonnie Brown MD PCP - General Family Practice 09/14/18 documented as of this encounter
--- OUTSIDE RECORDS SUMMARY | 2025-02-16 08:47 | XMS_ITS | Encounter Summary ---
Author Organization [facility] Address [address] [place] [address] Care Team Providers Care Attending Pathologist Name Role Phone Lonnie Brown MD Primary Care Provider +1- [phone] Encounter Details Date Type Department Care Team [...] on file Legal Sex Female 5:06 AM PUBLIC ADDRESS SYSTEM OPERATOR Gender Identity Not on file Sexual Orientation Not on file documented as of this encounter Plan of Treatment Upcoming Encounters Date Type Department Care Team (Late st Contact Info) Description 04/14/2025 11:45 AM CDT Office Visit [facility] Oncology and Hematology - [place] [address] [facility] [address] [place] [address] Greyson Arevalo MD [address] [facility] [address] [place] [address] documented as of this encounter Visit Diagnoses Not on filedocumented in this encounter Care Teams Attending Pathologist Relationship Specialty Start Date End Date Lonnie Brown MD PCP - General Family Practice 09/14/18 documented as of this encounter
--- OUTSIDE RECORDS SUMMARY | 2025-02-16 08:48 | XMS_ITS | Encounter Summary ---
Author Organization [facility] Address [facility] [place] [address] Care Team Providers Care Slime Plant Operator Helper Name Role Phone Lonnie Brown MD Primary Care Provider +1- [phone] Greyson Arevalo MD Unavailable [phone] Encounter Details Date Type Department Care Team (Latest Contact Info) Description 06/25/2021 MyChart Message Enc [facility] Multispecialty Care - [facility] [address] [facility], [address] [place] [id number] Lissett Womack MD [address] [place] [address] Testing before next appt Social History Tobacco Use Types Packs/Day Years Used Date Smoking Tobacco: Former Cigarettes Smokeless Tobacco: Never 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 No / Unsure 06/19/2021 9:17 AM POCKET SECRETARY ASSEMBLER documented as of this encounter Plan of Treatment Upcoming Encounters Date Type Department Care Team (Late st Contact Info) Description 04/28/2025 10:20 AM CDT Office Visit [facility] Multispecialty Care - [facility] [address] [facility], [address] [place] [address] Tamika Navarrete MD [address] [facility] [place] [address] 05/04/2025 1:00 PM CDT Office Visit [facility] [address] [place] [address] Bety Mckeon MD Three [facility]. [address] [place], [place] [address] documented as of this encounter Visit Diagnoses Not on filedocumented in this encounter Additional Health Concerns Infection Onset Date Last Indicated Resolved Time COVID-19 Rule Out 06/20/2023 06/20/2023 06/20/2023 12:24 PM POCKET SECRETARY ASSEMBLER documented as of this encounter Care Teams Slime Plant Operator Helper Relationship Specialty Start Date End Date Lonnie Brown MD [address] [place] [address] [address] [place] [address] PCP - General FAMILY PRACTICE 06/19/21 Greyson Arevalo MD [address] [facility] [address] [place] [address] HEMATOLOGY/ONCOLOGY 09/17/21 documented as of this encounter
--- OUTSIDE RECORDS SUMMARY | 2025-02-16 08:48 | XMS_ITS | Encounter Summary ---
Author Organization [facility] Address [address] [place] [address] Care Team Providers Care Fire Watchman Name Role Phone Lonnie Brown MD Primary Care Provider +1- [phone] Encounter Details Date Type Department Care Team (Late st Contact Info) Description 03/24/2003 Outpatient Historical HIS MAMM VAN Lonnie Kemp SCREENING MAMM-MAILG NEOPL-OTHER (Primary Dx) Social History Tobacco Use Types Packs/Day Years Used Date Smoking Tobacco: Never Assessed Comments Unknown Sex and Gender Information Value Date Recorded Sex Assigned at Not on file Legal Sex Female 5:06 AM CHAIR MAKER Gender Identity Not on file Sexual Orientation Not on file documented as of this encounter Plan of Treatment Upcoming Encounters Date Type Department Care Team (Late st Contact Info) Description 04/14/2025 11:45 AM CDT Office Visit [facility] Oncology and Hematology - [place] [address] [place] [address] [facility] [address] [place] [address] Greyson Arevalo MD [address] [facility] [address] [place] [address] documented as of this encounter Visit Diagnoses Diagnosis Other screening mammogram- Primary documented in this encounter Care Teams Fire Watchman Relationship Specialty Start Date End Date Lonnie Brown MD PCP - General Family Practice 09/14/18 documented as of this encounter
== END 2025-02-16 08:42 | disposition home or self-care (01) ==
PROVIDERS: PCP Nurse Practitioner Family; Visit Provider Nurse Practitioner Family
DX: R09.89 Other specified symptoms and signs involving the circulatory and respiratory systems (principal)
CPT/HCPCS: 93922

== ENCOUNTER 2025-03-21 08:11 | Outpatient (CLI) | payer MEDICARE, SELFPAY ==
--- OUTSIDE RECORDS SUMMARY | 2004-07-04 11:00 | XMS_ITS | Continuity of Care Document ---
Author Organization [facility] Address [id number] [place] [address] [place] [address] Phone Care Team Providers Care Loaders Name Role Phone Jesse Hebert Unavailable Unavailable Advance Directives Directive Yes / No Effective Date File Name No Information Encounters Encounter Description Practice Location Reason(s) For Visit Diagnoses Date Provider Providers Copied on Encounter [facility], [id number] [place] [address] [address], [place], [place], [id number], [place] tel:[phone] [facility] No Information Jun-0 8-200 4 Doisy Edward. [address] , [address], [place], [address], [place]. tel:[phone] Family History Family Member Type Diagnosis Age At Onset No Information Payers Payer name Insurance type Covered alliance party ID Authoriza tion(s) No Information Social History [...]
--- NOTE | ~2025-03-21 | MM_ITS ---
EXAMINATION: MM screening bernarda BI w sofia HISTORY: Screening TECHNIQUE: Craniocaudal and mediolateral oblique 3-D tomosynthesis images were obtained and synthetic 2-D images were generated. CAD analysis was submitted and interpreted. COMPARISON: Comparison to multiple prior studies sequentially, with oldest reviewed study dated 08/18/2019. BREAST PARENCHYMAL COMPOSITION: Not Dense: The breasts are almost entirely fatty. FINDINGS: There is no evidence of suspicious mass, calcification, or architectural distortion to suggest malignancy in either breast. There has been no suspicious interval change. IMPRESSION: 1. No mammographic evidence of malignancy. 2. Recommend routine screening mammography in one year. BI-RADS Category 1: Negative Reviewed, dictated and finalized at location O.
--- NOTE | ~2025-03-21 | DEXA_ITS ---
Bone Density Report Name: HELEN FOSS Age: 75 Sex: Female Ethnicity: White Date of : 1950 Indication: postmenopausal; screening for osteoporosis; height loss; prior fracture; cancer; rheumatoid arthritis; Referring Provider: SANDY LEMONS Study: Bone densitometry was performed. Exam Date: March 21, 2025 Accession number: [id number] Bone Density: Region BMD T-score Z-score Classification Femoral Neck (Left) 0.811 -0.3 1.8 Normal Total Hip (Left) 0.977 0.3 2.2 Normal Femoral Neck (Right) 0.824 -0.2 1.9 Normal Total Hip (Right) 0.992 0.4 2.3 Normal Total Hip Mean 0.984 0.4 2.3 Normal World Health Organization criteria for BMD impression classify patients as: Normal (T-score at or above -1.0), Osteopenia (T-score between -1.0 and -2.5), or Osteoporosis (T-score at or below -2.5). 10-year Fracture Risk: FRAX not reported because: All T-scores for Spine Total, Hip Total, Femoral Neck at or above -1.0 Clinical Information Provided by Patient: Has had a low trauma fracture Has rheumatoid arthritis Has used the following medications: Vitamin D, Calcium Has the following medical conditions: Cancer Patient maximum height was 71.0 Menopause Age: 49 No regular weight bearing exercise Drinks caffeinated beverages Onset of menses at age 10 Number of children 1 Impression: The patient has normal bone mass. The patient has risk factors, including: previous fracture. Discussion: BONE DENSITY IS ABOVE THE MINIMUM DESIRABLE LEVEL AT ALL SKELETAL SITES TESTED. This patient?s bone mineral density is above the minimum desirable level (T-score -1.0 or better) at all sites measured. The patient should follow a healthful lifestyle (good nutrition with adequate calcium and vitamin D, and appropriate weight-bearing exercise). Follow-Up: Consider repeating this study in 5 years or sooner if there is some new clinical indication. Reported by: DONNA on 03/21/2025 9:08:00 AM. Reviewed, dictated and finalized at location A.
--- OUTSIDE RECORDS SUMMARY | 2025-03-21 08:19 | XMS_ITS | Clinical Summary ---
Author Organization [facility] Address [address] [place] [address] Care Team Providers Care Radiation / Chemistry Technician Name Role Phone Lonnie Brown MD Primary Care Provider +1- [phone] Allergies Active Allergy Reactions Criticality Noted Date [...] ipratropium bromide (ATROVENT) 42 mcg (0.06 %) [place], Non-Aerosol USE 2 SPRAYS IN EACH NOSTRIL [...] Encounters Date Type Department Care Team Description 03/16/2025 External Device Data STL ABSTRACTION Provider, Abstract 03/01/2025 External Device Data STL ABSTRACTION Provider, Abstract [...] on file Legal Sex Female 5:06 AM BIOINFORMATICS SOFTWARE ENGINEER Gender Identity Not on file Sexual Orientation [...] Description 04/14/2025 11:45 AM CDT Office Visit [facility] Oncology and Hematology - [place] [address] [place] [address] [facility] [address] [place] [address] Greyson Arevalo MD [address] [facility] [address] [place] [address] Health Maintenance Due Date Last [...] Relevant to Health Maintenance Insurance Care Teams Radiation / Chemistry Technician Relationship Specialty Start Date End Date Lonnie Brown MD PCP - General Family Practice 09/14/18
--- OUTSIDE RECORDS SUMMARY | 2025-03-21 08:19 | XMS_ITS | Clinical Summary ---
Author Organization [facility] Address [address] [facility] [place] [address] Care Team Providers Care Epic Ambulatory Analyst Name Role Phone Lonnie Brown MD Primary Care Provider + Source Comments [facility],non-owned Affiliates and Associated Physician Practices is amultiple site organization consisting of ambulatory clinics and hospital sitesin [place], [place], [place] and [place]. This disclosure is being madepursuant to the Care Everywhere program and may not contain all information available regarding this patient. Last updated 18.[facility] Social History Tobacco Use Types Packs/Day Years Used Date Smoking Tobacco: Never Assessed Comments Unknown Sex and Gender Information Value Date Recorded Sex Assigned at Not on file Legal Sex Female 1:58 PM APPLIQUER ZIGZAG Gender Identity Not on file Sexual Orientation [...] patient's age to complete this topic Insurance [facility] MANAGED MEDICARE ADV Care Teams Epic Ambulatory Analyst Relationship Specialty Start Date End Date Lonnie Brown MD [address] [facility] [address] [place] [address] [facility] - General 09/17/18
--- OUTSIDE RECORDS SUMMARY | 2025-03-21 08:19 | XMS_ITS | Encounter Summary ---
Author Organization [facility] Address [address] [place] [address] Care Team Providers Care Electrical Accessories I Assembler Name Role Phone Lonnie Brown MD Primary Care Provider +1- [phone] Encounter Details Date Type Department Care Team (Late st Contact Info) Description 03/24/2003 Outpatient Historical HIS MAMM VAN Lonnie Kemp SCREENING MAMM-MAILG NEOPL-OTHER (Primary Dx) Social History Tobacco Use Types Packs/Day Years Used Date Smoking Tobacco: Never Assessed Comments Unknown Sex and Gender Information Value Date Recorded Sex Assigned at Not on file Legal Sex Female 5:06 AM AIR CONDITIONING MANAGER Gender Identity Not on file Sexual Orientation Not on file documented as of this encounter Plan of Treatment Upcoming Encounters Date Type Department Care Team (Late st Contact Info) Description 04/14/2025 11:45 AM CDT Office Visit [facility] Oncology and Hematology - [place] [address] [place] [address] [facility] [address] [place] [address] Greyson Arevalo MD [address] [facility] [address] [place] [address] documented as of this encounter Visit Diagnoses Diagnosis Other screening mammogram- Primary documented in this encounter Care Teams Electrical Accessories I Assembler Relationship Specialty Start Date End Date Lonnie Brown MD PCP - General Family Practice 09/14/18 documented as of this encounter
--- OUTSIDE RECORDS SUMMARY | 2025-03-21 08:19 | XMS_ITS | Encounter Summary ---
Author Organization [facility] Address [address] [place] [address] Care Team Providers Care Operator Cavity Pump Name Role Phone Lonnie Brown MD Primary Care Provider +1- [phone] Encounter Details Date Type Department Care Team (Late st Contact Info) Description 11/19/2018 Chart Note [facility] Radiation Therapy [address] [place] [address] [place] [address] [place] [address] Social History Tobacco Use Types Packs/Day Years Used Date Smoking Tobacco: Never Smokeless Tobacco: Never Alcohol Use Standard Drinks/Week Comments Yes 0 (1 standard drink = 0.6 oz pur e alcohol) Comments No Sex and Gender Information Value Date Recorded Sex Assigned at Not on file Legal Sex Female 5:06 AM RECRUIT INSTRUCTOR Gender Identity Not on file Sexual Orientation Not on file documented as of this encounter Plan of Treatment Upcoming Encounters Date Type Department Care Team (Late st Contact Info) Description 04/14/2025 11:45 AM CDT Office Visit [facility] Oncology and Hematology - [address] [place] [address] Greyson Arevalo MD [address] [facility] [address] [place] [address] documented as of this encounter Visit Diagnoses Not on filedocumented in this encounter Care Teams Operator Cavity Pump Relationship Specialty Start Date End Date Lonnie Brown MD PCP - General Family Practice 09/14/18 documented as of this encounter
== END 2025-03-21 08:12 | disposition home or self-care (01) ==
LOC: ANHIMG 08:12
PROVIDERS: PCP Nurse Practitioner Family; Visit Provider Internal Medicine Hematology & Oncology
DX: M85.89 Other specified disorders of bone density and structure, multiple sites (principal); Z12.31 Encounter for screening mammogram for malignant neoplasm of breast
CPT/HCPCS: 77063; 77067; 77080

== ENCOUNTER 2025-04-05 09:29 | Outpatient (CLI) | payer MEDICARE, SELFPAY ==
--- OUTSIDE RECORDS SUMMARY | 2004-07-04 11:00 | XMS_ITS | Continuity of Care Document ---
Author Organization [facility] Address [id number] [place] [address] [place] [address] Phone Care Team Providers Care 3D Modeler Name Role Phone Jesse Hebert Unavailable Unavailable Advance Directives Directive Yes / No Effective Date File Name No Information Encounters Encounter Description Practice Location Reason(s) For Visit Diagnoses Date Provider Providers Copied on Encounter [facility], [id number] [place] [address] [address], [place], [place], [id number], [place] tel:[phone] [facility] No Information Jun-0 8-200 4 Shysy Edward. [address] , [address], [place], [address], [place]. tel:[phone] Family History Family Member Type Diagnosis Age At Onset No Information Payers Payer name Insurance type Covered democrat ID Authoriza tion(s) No Information Social History Type Description Quantity Date Captured Comments Sex Female Smoking Status No Information Chief Complaint And Reason For Visit No Information Reason For Referral Reason For Referral No Information History Of Present Illness Encounter Date Complaint History Of Prese nt Illness No Information Functional Status Date Functional Assessmen t No Information Instructions Date Instruction Additional Infor mation No Information Assessments Type Assessment Date No Information Patient Care Teams Name Effective Dates (start - stop) Status Members No Information
[2025-04-05 09:45] LABS: Hematocrit 39.5 % (37.0-47.0); Hemoglobin 13.2 g/dL (12.0-15.0); Immature Granulocyte Percent A 0.2 % (0-0.5); Lymphocytes Absolute Auto 1.14 K/mm3 (0.9-3.2); Mean Corpuscular HGB Conc 33.4 g/dl (32-36); Mean Corpuscular Hemoglobin 33.6 pg (26-34); Mean Corpuscular Volume 100.5 fl (80-100); Nucleated Red Blood Cells Absolute Auto 0.000 K/mm3 (0.0-0.012); Nucleated Red Blood Cells Perc 0.0 % (0.0-0.2); Platelet Count Result 173 k/mm3 (150-375); Red Blood Count 3.93 M/mm3 (4.2-5.4); White Blood Count 4.8 K/mm3 (4.5-10.0)
--- OUTSIDE RECORDS SUMMARY | 2025-04-05 10:32 | XMS_ITS | Clinical Summary ---
Author Organization [facility] Address [address] [facility] [place] [address] Care Team Providers Care Deblocker Name Role Phone Lonnie Brown MD Primary Care Provider + Source Comments [facility],non-owned Affiliates and Associated Physician Practices is amultiple site organization consisting of ambulatory clinics and hospital sitesin [place], [place], [place] and [place]. This disclosure is being madepursuant to the Care Everywhere program and may not contain all information available regarding this patient. 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
--- OUTSIDE RECORDS SUMMARY | 2025-04-05 10:32 | XMS_ITS | Clinical Summary ---
Author Organization [facility] Address [address] [place] [address] Care Team Providers Care Die Polisher Name Role Phone Lonnie Brown MD Primary Care Provider +1- [phone] Allergies Active Allergy Reactions Criticality Noted Date [...] TAKE 1 TABLET BY MOUTH ONCE DAILY 02/02/20 20 Active calcium carbonate + vitamin D (CALTRATE+D) 600 mg(1,500mg) -400 unit Tablet Take by mouth. Pt said D is 2600 and Yusuf is 1600 dosage not found in system Active Symbicort 160-4.5 mcg/actuation HFA Aerosol Inhaler INHALE 2 PUFFS BY MOUTH TWICE DAILY 03/10/20 21 Active meclizine (ANTIVERT) 25 mg tablet TAKE 1 TABLET BY MOUTH THREE TIMES DAILY NEEDED FOR DIZZINESS 03/28/20 21 Active pantoprazole (PROTONIX) 40 mg Tablet, Delayed Release (E.C.) 04/09/20 21 Active ipratropium bromide (ATROVENT) 42 mcg (0.06 %) [place], Non-Aerosol USE 2 SPRAYS IN EACH NOSTRIL UP TO 4 TIMES DAILY 03/05/20 21 Active ferrous sulfate 325 mg (65 mg iron) tablet Take 325 mg by mouth daily. Active albuterol sulfate 90 mcg/Actuation inhaler 06/16/20 20 Active Calcium Carbonate-Vit D3-Min 600 mg calcium- 400 unit Tablet Take by mouth. Active HYDROcodone-ac etaminophen (NORCO) 5-325 mg tablet TAKE 1 TO 2 TABLETS BY MOUTH EVERY 6 HOURS NEEDED 07/02/20 Active diazePAM (VALIUM) 5 mg tablet Take 5 mg by mouth every 6 hours as needed. 11/06/19 24 Active Lidocaine 4 % Adhesive Patch, Medicated Apply 2 Patches to skin as directed every 24 hours. 11/19/19 24 Active anastrozole (ARIMIDEX) 1 mg tabletIndicati ons:Malignant neoplasm of upper-outer quadrant of right breast in female, estrogen receptor positive (CMS/HCC) TAKE 1 TABLET BY MOUTH DAILY 100 Tablet 2 03/23/20 Active anastrozole (ARIMIDEX) 1 mg tabletIndicati ons:Malignant neoplasm of upper-outer quadrant of right breast in female, estrogen receptor positive (CMS/HCC) TAKE 1 TABLET BY MOUTH DAILY 90 Tablet 2 10/21/19 025 Discontinued Active Problems Problem Noted Date Diagnosed Date [...] Encounters Date Type Department Care Team Description 03/23/2025 Refill [facility] Oncology and Hematology - [place] [address] [place] [address] Greyson Arevalo MD Malignant neoplasm of upper-outer quadrant of right breast in female, estrogen receptor positive (CMS/HCC) 03/22/2025 Orders Only [facility] Oncology and Hematology - [address] [place] [address] Greyson Arevalo MD 03/21/2025 Orders Only [facility] Oncology and Hematology - [address] [place] [address] Greyson Arevalo MD 03/16/2025 External Device Data STL ABSTRACTION Provider, [...] on file 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 Gender Identity Not on file Sexual Orientation [...] Description 04/14/2025 11:45 AM CDT Office Visit [facility] Oncology and Hematology - [place] [address] [facility] [facility] [address] [place] [address] Greyson Arevalo MD [address] [facility] [address] [place] [address] Health Maintenance Due Date Last Done Comments DTAP/TDAP/TD VACCINES (1 - Tdap) 1967 ZOSTER VACCINE (1 of 2) 1998 OSTEOPOROSIS SCREENING 2013 RSV VACCINE (60+ or ) (1 - 1-dose 75+ series) 2023 [place] ([place] Prev entative Visit/Annual Wellness Visit 07/28/2024 INFLUENZA VACCINE (#1) 2025 COLORECTAL SCREENING Discontinued 05/11/2021 Colorectal Cancer Screening Discontinued PNEUMOCOCCAL VACCINE 50+ YEARS Completed 11/07/2023 FIT-DNA Q 3 years Discontinued FIT/FOBT Q 1 year Discontinued Flex Sig/CT Colonography Q 5 years Discontinued Procedures Procedure Name Priority Date/Time Associated Diagnosis Comments NM BONE DENSITY Routine 03/21/2025 1:44 PM CDT MAMMO SCREENING BILAT Routine 03/21/2025 11:21 AM CDT COLONOSCOPY REPORT Routine 05/11/2021 from Last 3 Months or Most Recently Relevant to Health Maintenance Results * NM BONE DENSITY (03/21/2025 1:44 PM CDT) Anatomical Region Laterality Modality Nuclear Medicine Greyson Arevalo MD NM ORDERABLES Final Result * MAMMO SCREENING BILAT (03/21/2025 11:21 AM CDT) Anatomical Region Laterality Modality Breast Bilateral Mammography Greyson Arevalo MD MAMMO ORDERABLES Final Result * COLONOSCOPY REPORT (05/11/2021) Abstract Provider GI PROCEDURE ORDERABLES Final Result from Last 3 Months or Most Recently Relevant to Health Maintenance Insurance [facility] [id number] [facility] [id number] Care Teams Die Polisher Relationship Specialty Start Date End Date Lonnie Brown MD PCP - General Family Practice 09/14/18
--- OUTSIDE RECORDS SUMMARY | 2025-04-05 10:32 | XMS_ITS | Encounter Summary ---
Author Organization [facility] Address [address] [place] [address] Care Team Providers Care Lockstitch Front Maker Name Role Phone Lonnie Brown MD Primary Care Provider +1- [phone] Encounter Details Date Type Department Care Team (Late st Contact Info) Description 11/19/2018 Chart Note [facility] Radiation Therapy [address] [place] [address] [place] [address] [place] [address] Social History Tobacco Use Types Packs/Day Years Used Date Smoking Tobacco: Never Smokeless Tobacco: Never Alcohol Use Standard Drinks/Week Comments Yes 0 (1 standard drink = 0.6 oz pur e alcohol) Comments No Sex and Gender Information Value Date Recorded Sex Assigned at Not on file 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 Gender Identity Not on file Sexual Orientation Not on file documented as of this encounter Plan of Treatment Upcoming Encounters Date Type Department Care Team (Late st Contact Info) Description 04/14/2025 11:45 AM CDT Office Visit [facility] Oncology and Hematology - [address] [place] [address] Greyson Arevalo MD [address] [facility] [address] [place] [address] documented as of this encounter Visit Diagnoses Not on filedocumented in this encounter Care Teams Lockstitch Front Maker Relationship Specialty Start Date End Date Lonnie Brown MD PCP - General Family Practice 09/14/18 documented as of this encounter
--- OUTSIDE RECORDS SUMMARY | 2025-04-05 10:32 | XMS_ITS | Encounter Summary ---
Author Organization [facility] Address 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 Gender Identity Not on file Sexual Orientation Not on file documented as of this encounter Plan of Treatment Upcoming Encounters Date Type Department Care Team (Late st Contact Info) Description 04/14/2025 11:45 AM CDT Office Visit [facility] Oncology and Hematology - [place] [address] [place] [address] [facility] [address] [place] [address] Greyson Arevalo MD [address] [facility] [address] [place] [address] documented as of this encounter Visit Diagnoses Diagnosis Other screening mammogram- Primary documented in this encounter Care Teams Special Needs Librarian Relationship Specialty Start Date End Date Lonnie Brown MD PCP - General Family Practice 09/14/18 documented as of this encounter
[2025-04-05 12:00] LABS: Alanine Aminotransferase 18 U/L (6-35); Albumin Level 3.8 g/dL (3.5-5.1); Alkaline Phosphatase 88 U/L (38-126); Anion Gap 5 mmol/L (4-12); Aspartate Amino Transferase 33 U/L (14-36); Bilirubin,Total 0.4 mg/dL (0.2-1.3); Blood Urea Nitrogen 11 mg/dL (7-17); Calcium 9.6 mg/dL (8.4-10.2); Carbon Dioxide 33 mmol/L (22-30); Chloride 102 mmol/L (98-107); Estimated Glomerular Filt Rate 50; Glucose 85 mg/dL (65-110); Potassium 3.8 mmol/L (3.4-5.0); Sodium 140 mmol/L (137-145); Total Protein 6.6 g/dL (6.3-8.2)
== END 2025-04-05 09:30 | disposition home or self-care (01) ==
PROVIDERS: PCP Nurse Practitioner Family; Visit Provider Internal Medicine Hematology & Oncology
DX: C50.411 Malignant neoplasm of upper-outer quadrant of right female breast (principal); Z17.0 Estrogen receptor positive status [ER+]
CPT/HCPCS: 36415; 80053; 85025; 86300